=== PATIENT | female | born 1945 | race Caucasian/White ===

== ENCOUNTER 2016-10-05 05:08 | Observation (INO) ==
[2016-10-05 05:43] LABS: Basophils # 0.1 K/mcL (0.0-0.2); Basophils % 0.5 %; Eosinophils # 0.5 K/mcL (0.0-0.6); Eosinophils % 4.4 %; Hematocrit 38.1 % (35.3-44.9); Hemoglobin 12.4 g/dL (11.5-15.4); Immature Granulocytes % 0.5 % (0-4); Lymphocytes # 0.9 K/mcL (0.6-4.6); Lymphocytes % 8.5 %; Mean Corpuscular HGB Conc 32.5 g/dL (31.6-35.5); Mean Corpuscular Hemoglobin 28.8 pg (28.0-33.3); Mean Corpuscular Volume 88.6 fL (83.0-100.0); Mean Platelet Volume 9.9 fL (9.4-12.4); Monocytes # 0.9 K/mcL (0.0-1.3); Neutrophils # 8.6 K/mcL (1.6-8.9); Platelet Count 285 K/mcL (140-400); Red Cell Distribution Width 13.9 % (11.5-14.5); Segmented Neutrophils % 78.1 %
[2016-10-05 05:46] LABS: INR 0.9; Prothrombin Time 10.1 Seconds (9.4-12.1)
[2016-10-05 05:49] LABS: Activated Partial Thrombo Time 30.2 Seconds (26.0-36.0)
--- NOTE | 2016-10-05 05:54 | Emergency Department Note ---
Disposition Clinical Impression: Chest pain Qualifiers: Chest pain type: unspecified Qualified Code(s): R07.9 - Chest pain, unspecified Disposition: Admitted As Inpatient Condition: Undetermined Referrals: Paco Garcia DO [Primary Care Provider] - Forms: ED Satisfaction Letter Time of Disposition: 06:36 Chest Pain HPI - General Chief Complaint: ED Cardiac Arrest/CPR Stated Complaint: chest pain Time Seen by Provider: 10/05/16 05:43 Source: patient Mode of arrival: ambulatory Limitations: no limitations Vital Signs Reviewed: Yes Nursing Notes Reviewed: Yes - History of Present Illness HPI Narrative: 71-year-old female with history of hypertension, hyperlipidemia, asthma arrives [facility] emergency department complaining of retrosternal chest pain and dyspnea that started immediately at 2:30 in the morning. The patient states that she sat up to use the restroom and noticed that she was beginning to have difficulty breathing. The patient was also experiencing is retrosternal chest pain without radiation. The patient denies any previous history of [place], unilateral leg swelling, recent surgeries, recent immobilizations , history of DVT or PE. The patient does not have an extensive history of cardiac disease. The patient states she utilized her albuterol inhaler at home which did not relieve her symptoms. The patient decided at that time to come to the emergency department for evaluation after talking with her significant other as well as her daughter. The patient is tachycardic in the room with a heart rate of 103. Pt complaint: chest pain Onset (ago): hour(s) (2.5) Time: 02:30 Duration: constant Onset: during rest Pain Location: substernal Severity: mild, moderate Severity scale (1-10): 5 Quality: aching Pain Radiation: none Improves with: nothing Worsens with: nothing Associated symptoms: Reports: dyspnea Treatments prior to arrival chest pain: none - Related Data On Oral Contraceptives: No Allergies Allergy/AdvReac Type Severity Reaction Status Date / Time Procaine [From Novocain] AdvReac Swelling Verified 10/05/16 05:09 of Lip/Tongue/Throat All systems ED: reviewed and negative except as stated. Constitutional: Denies: fever, chills, weakness, weight change Eyes: Denies: eye pain, eye discharge, vision change ENT ED: Denies: ear pain, throat pain, dental pain, hearing loss, epistaxis, congestion, dysphagia Cardiovascular: Reports: chest pain. Denies: palpitations, dyspnea on exertion , edema, syncope Respiratory: Reports: cough, dyspnea. Denies: wheezes, hemoptysis, stridor Gastrointestinal: Denies: abdominal pain, nausea, vomiting, diarrhea, constipation, hematemesis, melena, hematochezia Genitourinary: Denies: dysuria, frequency, hematuria, discharge Musculoskeletal: Denies: back pain, neck pain, arthralgia, myalgia Integumentary: Denies: rash, abrasion, lesions Neurological: Denies: headache, weakness, numbness, paresthesias, confusion, abnormal gait, vertigo Chest Pain PMH - Past Medical History Medical history: Reports: asthma, hyperlipidemia, hypertension, renal disease, thyroid disease Surgical history: Reports: non-contributory Psychiatric history: Reports: no psych history - Social History Smoking Status: Never smoker Alcohol use: Reports: none Drug use: Reports: none Physical Exam - General Limitations: no limitations General appearance: alert, in no apparent distress - Head Head exam: atraumatic, normocephalic, normal inspection - Neck Neck exam: Present: normal inspection, full ROM, trachea midline - Chest Chest inspection: Present: normal inspection, symmetric chest wall rise, tenderness (Sternal pain) - Respiratory Respiratory exam: Present: normal lung sounds bilaterally. Absent: respiratory distress, wheezes, accessory muscle use - Cardiovascular Cardiovascular exam: Present: normal rhythm, tachycardia, normal heart sounds - Abdominal Exam Abdominal exam: Present: soft, Non-Tender. Absent: tenderness, distention, guarding, rebound, rigidity - Extremities Exam Extremities exam: Present: normal inspection, full ROM. Absent: tenderness, pedal edema - Neurological Exam Neurological exam: Present: alert, oriented X3 - Skin Skin exam: Present: warm, dry, intact, normal color Course Vital Signs Temperature 99.5 F 10/05/16 05:10 Pulse Rate 113 10/05/16 05:10 Respiratory Rate 16 10/05/16 05:10 Blood Pressure 165/97 10/05/16 05:10 O2 Sat by Pulse Oximetry 94 10/05/16 05:10 Temperature 99.5 F 10/05/16 05:10 Pulse Rate 113 10/05/16 05:10 Respiratory Rate 16 10/05/16 05:10 Blood Pressure 165/97 10/05/16 05:10 O2 Sat by Pulse Oximetry 94 10/05/16 05:10 Oxygen Delivery Oxygen Delivery Room Air Chest Pain - MDM Narrative Medical decision making narrative: Dishes labwork here demonstrated no acute process. The patient's chest pain is retrosternal. The patient has not had a full workup for chest pain in the past. The patient has risk factors for heart scores 3 at this time. Given the patient's no workup here in the emergency Department or further, we will likely admit the patient to the hospital for this. We will get to the hospital service. This was discussed with the patient which she agrees. We ministered aspirin. Patient agrees to plan. Accepted by Dr. Murillo. - Lab Data Lab results reviewed: Yes I reviewed the patient's lab results. Result diagrams: 10/05/16 05:30 10/05/16 05:30 Lab Results 10/05/16 10/05/16 10/05/16 Range/Units 05:30 05:30 05:30 WBC 11.0 (4.3-11.1) K/mcL RBC 4.30 (3.82-4.97) M/mcL Hgb 12.4 (11.5-15.4) g/dL Hct 38.1 (35.3-44.9) % MCV 88.6 (83.0-100.0) fL MCH 28.8 (28.0-33.3) pg MCHC 32.5 (31.6-35.5) g/dL RDW 13.9 (11.5-14.5) % Plt Count 285 (140-400) K/mcL MPV 9.9 (9.4-12.4) fL Immature Gran % 0.5 (0-4) % Seg Neutrophils % 78.1 % Lymphocytes % 8.5 % Monocytes % 8.0 % Eosinophils % 4.4 % Basophils % 0.5 % Neutrophils # 8.6 (1.6-8.9) K/mcL Lymphocytes # 0.9 (0.6-4.6) K/mcL Monocytes # 0.9 (0.0-1.3) K/mcL Eosinophils # 0.5 (0.0-0.6) K/mcL Basophils # 0.1 (0.0-0.2) K/mcL PT 10.1 (9.4-12.1) Seconds INR 0.9 APTT 30.2 (26.0-36.0) Seconds D-Dimer 507 H (0-500) ng/mLFEU Sodium 135 L (136-145) mEq/L Potassium 3.9 (3.5-4.5) mEq/L Chloride 98 (98-109) mEq/L Carbon Dioxide 29 (19-29) mEq/L BUN 8 (7-20) mg/dL Creatinine 0.84 (0.57-1.11) mg/dL Est GFR ( Amer) > 60 (> 60) Est GFR (Non-Af Amer) > 60 (> 60) BUN/Creatinine Ratio 10 (6-26) Glucose 109 H (70-99) mg/dL Calculated Osmolality 279 L (280-300) Calcium 10.2 (8.6-10.8) mg/dL Troponin I (0-0.03) ng/mL 10/05/16 Range/Units 05:30 WBC (4.3-11.1) K/mcL RBC (3.82-4.97) M/mcL Hgb (11.5-15.4) g/dL Hct (35.3-44.9) % MCV (83.0-100.0) fL MCH (28.0-33.3) pg MCHC (31.6-35.5) g/dL RDW (11.5-14.5) % Plt Count (140-400) K/mcL MPV (9.4-12.4) fL Immature Gran % (0-4) % Seg Neutrophils % % Lymphocytes % % Monocytes % % Eosinophils % % Basophils % % Neutrophils # (1.6-8.9) K/mcL Lymphocytes # (0.6-4.6) K/mcL Monocytes # (0.0-1.3) K/mcL Eosinophils # (0.0-0.6) K/mcL Basophils # (0.0-0.2) K/mcL PT (9.4-12.1) Seconds INR APTT (26.0-36.0) Seconds D-Dimer (0-500) ng/mLFEU Sodium (136-145) mEq/L Potassium (3.5-4.5) mEq/L Chloride (98-109) mEq/L Carbon Dioxide (19-29) mEq/L BUN (7-20) mg/dL Creatinine (0.57-1.11) mg/dL Est GFR ( Amer) (> 60) Est GFR (Non-Af Amer) (> 60) BUN/Creatinine Ratio (6-26) Glucose (70-99) mg/dL Calculated Osmolality (280-300) Calcium (8.6-10.8) mg/dL Troponin I 0.02 (0-0.03) ng/mL - Radiology Data Radiology results reviewed: Yes I reviewed the patient's radiology results. - EKG Data EKG attestation: Yes I reviewed and interpreted this EKG. EKG results narrative: Heart rate 10 3 bpm. DE interval 187 ms. QTC 376 ms. Normal axis. Sinus tachycardia. No ST elevation or ST depression noted. EKG otherwise similar to EKG from 10/20/2012. New Tachycardia. No other acute changes noted. Heart Score - Score History: Slightly Suspicious EKG: Normal Age: Greater than 65 Risk Factors: 1-2 risk factors Troponin: Less than normal limit HEART Score Total: 3 Attestation Statement - Attestation Attestation: I examined this patient and my medical decision-making was reviewed with the RESERVATION AGENT/PA/Advanced Practice Nurse/Resident Physician. I agree with the documented findings, disposition and treatment plan as described except to the extent set forth below. In summary 71-year-old female with chest pain with acute onset 2 AM. Midsternal and nonradiating. [place] mildly elevated d- dimer at 507 heart rate utilizing age-adjusted formula she does not require advanced imaging at this time. This would be a normal d-dimer given her age of [age] years old. Cardiac biomarkers are normal. She was given nitroglycerin without much improvement of her pain. EKG is nondiagnostic at this time. I would admit her for turning of cardiac biomarkers. 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 Aspirin was administerd. She does not a strong history of asthma and request a breathing treatment. I do not appreciate any bronchospasm harbor we will proceed with 1 DuoNeb.
[2016-10-05 05:57] LABS: BUN/Creatinine Ratio 10 (6-26); Blood Urea Nitrogen 8 mg/dL (7-20); Calcium 10.2 mg/dL (8.6-10.8); Carbon Dioxide 29 mEq/L (19-29); Chloride 98 mEq/L (98-109); Glucose 109 mg/dL (70-99); Osmolality,Calculated 279 (280-300); Potassium 3.9 mEq/L (3.5-4.5); Sodium 135 mEq/L (136-145); eGFR For African Americans > 60 (> 60); eGFR For Non-African Americans > 60 (> 60)
[2016-10-05] MEDS ORDERED: Aspirin 325 MG TABLET PO ONE (06:30)
[2016-10-05] MEDS ORDERED: Nitroglycerin 0.4 MG TAB.SUBL SL PRN (06:35)
[2016-10-05] MEDS ORDERED: Nitroglycerin 1 INCH/GM PACKET TP ONE (06:54)
[2016-10-05] MEDS ORDERED: Ipratropium/Albuterol Neb 3 ML IH ONE (06:54)
--- NOTE | 2016-10-05 08:36 | Internal Med History&Physical ---
Date of Encounter: 10/05/16 Time of Encounter: 08:36 Assessment and Plan (1) Chest pain Current visit: Yes Status: Acute Patient's chest pain is atypical, pleuritic and reproducible It is likely secondary to her bronchitis however, given her risk factors, will rule out ACS by trending troponins, Obtain ECHO for WMA and EF estimation Patient is chest pain free at time of exam She has low risk for PE, although she was tachycardic on arrival and D-dimer is elevated Will obtain CTA to r/o PE Pain control as needed Qualifiers: Chest pain type: chest pain on breathing Qualified Code(s): R07.1 - Chest pain on breathing (2) Bronchitis Current visit: Yes Status: Acute Patient with cough productive of phlegm and pleuritic chest pain Start on Azithromycin po (3) Asthma Current visit: Yes Status: Chronic Resume home MDI prn No wheezing on exam, no symptoms and signs of exacerbation Qualifiers: Asthma severity: unspecified severity Asthma complication type: uncomplicated Qualified Code(s): J45.909 - Unspecified asthma, uncomplicated (4) Hypertension Current visit: Yes Status: Chronic Resume home meds Qualifiers: Hypertension type: essential hypertension Qualified Code(s): I10 - Essential (primary) hypertension (5) Hypothyroid Current visit: Yes Status: Chronic Resume home meds Qualifiers: Hypothyroidism type: unspecified Qualified Code(s): E03.9 - Hypothyroidism , unspecified (6) HLD (hyperlipidemia) Current visit: Yes Status: Chronic Resume home meds Qualifiers: Hyperlipidemia type: unspecified Qualified Code(s): E78.5 - Hyperlipidemia , unspecified Internal Medicine - H&P: HPI Chief complaint: Chest pain Admitted From: Home Plans for Post Hospital Care: Home History of present illness: Ms. Ramey is a 71 year old female PMH of HTN, HLD, Asthma presented to [facility] with complains of retrosternal chest pain and dyspnea that started in the early hours of this morning She describes the pain as sharp and associated with when she takes a deep breath , pain is located in the center of her chest, intermittent, moderately severe , ~4-5/10 and non-radiating. She denies association of this pain with exertion, meals or rest. There is no associated nausea, diaphoresis, dizziness, she denies palpitations, ankle swelling, orthopnea or PND. She denies preceding trauma, or heavy lifting She has been coughing for several days and relates the chest pain to when she coughs, her cough is productive of clear sputum, she has no rhinorrhea, she has asthma and allergic rhinitis She denies recent travel, immobilization, or any prior procedures She denies abdominal or genito-urinary symptoms Physical exam and work up in the ER is unremarkable Past Med Surg Social Fam HX - Past Medical History Medical history: asthma, hyperlipidemia, hypertension, renal disease, thyroid disease Psychiatric history: no psych history - Past Surgical History Surgical History: non-contributory - Social History Smoking Status: Never smoker Smokeless Tobacco Status: No Alcohol use: none Drug use: none Internal Medicine - H&P: Meds Albuterol Sulfate [Proair Hfa] 2 puff IH Q4H PRN 10/05/16 [History] Ascorbate Calcium [Vitamin C] 500 mg PO BID 10/05/16 [History] Aspirin 81 mg PO DAILY 10/05/16 [History] Atorvastatin [Lipitor] 40 mg PO HS 10/05/16 [History] Biotin 5 mg PO DAILY 10/05/16 [History] Calcium Carbonate/Vitamin D3 [Caltrate 600 + D Soft Chew Tab] 1 tab PO BID 10/05 [History] Cranberry Fruit Extract/Vit C [Azo Cranberry Softgel] 1 cap PO BID 10/05/16 [ History] Cyclosporine [Restasis] 1 drop OP BID 10/05/16 [History] Dapsone 100 mg PO Q48H 10/05/16 [History] Fluticasone Propionate Nasal [Flonase] 1 spray NS DAILY 10/05/16 [History] Fluticasone/Salmeterol [Advair 250-50 Diskus] 1 puff IH BID 10/05/16 [History] Ginkgo Biloba 40 mg PO DAILY 10/05/16 [History] Glucosamine/D3/[place]wellia Pat [Osteo Bi-Flex Tablet] 1 tab PO BID 10/05/16 [ History] Hydroxychloroquine [Plaquenuil] 200 mg PO BID 10/05/16 [History] Ipratropium [place] 2 spray NS BID 10/05/16 [History] L. Acidophilus/Pectin, [place] [Acidophilus Probiotic Capsule] 1 cap PO DAILY 06/19 [History] Levothyroxine [Synthroid] 25 mcg PO 0630 10/05/16 [History] Lisinopril/Hydrochlorothiazide [Zestoretic 20-12.5 mg Tablet] 1 tab PO DAILY 06/19 [History] Multivit-Min/FA/Lycopen/Lutein [Centrum Silver Tablet] 1 tab PO DAILY 10/05/16 [ History] Potassium Gluconate [Potassium] 99 mg PO BID 10/05/16 [History] Ranitidine HCl [Acid Muffler Tender] 150 mg PO BID PRN 10/05/16 [History] Zinc Acetate [Galzin] 50 mg PO DAILY 10/05/16 [History] Allergies Procaine [From Novocain] Adverse Reaction (Verified 10/05/16 05:09) Swelling of Lip/Tongue/Throat All Systems PM: A 10-system review of systems was performed and is negative for pertinent findings except as documented above in the HPI. - Constitutional Constitutional: no chills, no fever(s), no night sweats - EENT Eyes: no change in vision, no discharge, no pain, no photophobia Ears: no ear discharge, no ear pain, no tinnitus Nose, mouth and throat: no dysphagia, no nasal discharge, no neck pain, no sore throat - Cardiovascular Cardiovascular ROS IM: as per HPI - Respiratory Respiratory: as per HPI - Gastrointestinal Gastrointestinal: no abdominal pain, no diarrhea, no hematemesis, no hematochezia, no melena, no nausea, no vomiting - Genitourinary Genitourinary: no change in urinary stream, no dysuria, no flank pain, no hematuria - Musculoskeletal Musculoskeletal ROS IM: no numbness, no tingling - Integumentary Integumentary IM: no rash, no unusual bruising - Hematologic/Lymphatic Hematologic/Lymphatic: no easy bruising - Constitutional Vitals: Temp Pulse Resp BP Pulse Ox 98.3 F 99 16 104/68 93 10/05/16 07:47 10/05/16 07:47 10/05/16 07:47 10/05/16 07:47 10/05/16 07:47 General appearance: Present: A&O X 3, pleasant, no acute distress - Head Head exam: Present: atraumatic, normocephalic - Eye Eye exam: Present: PERRL, conjuntiva pink, sclera anicteric Pupils: Present: PERRL - Neck Neck exam general surgery: Present: supple, trachea midline. Absent: lymphadenopathy - Respiratory Respiratory exam: Present: CTAB. Absent: accessory muscle use, rales, rhonchi, wheezes Additional comments: R chest wall tenderness - Cardiovascular Cardiovascular exam: Present: RRR, +S1, +S2. Absent: diastolic murmur, gallop, rubs, systolic murmur - GI/Abdominal GI/Abdominal exam: Present: normal bowel sounds, soft, no peritoneal signs. Absent: distended, tenderness - Extremities Exam Extremities exam: Present: warm, radial pulses palpable and symetrical. Absent : calf tenderness, cyanotic, pedal edema - Neurological Exam Neurological exam: Present: alert, CN II-XII intact, oriented X3, no focal deficits. Absent: pronater drift, facial droop, speech deficit - Skin Skin exam: Present: dry, intact Internal Med - H&P Results - Labs CBC & Chem 7: 10/05/16 05:30 10/05/16 05:30
[2016-10-05] MEDS ORDERED: Ondansetron 4 MG/2 ML VIAL IVP PRN (08:56)
[2016-10-05] MEDS ORDERED: *HR* Morphine 2 MG/ML SYRINGE IVP PRN (08:56)
[2016-10-05] MEDS ORDERED: Acetaminophen 325 MG TABLET PO PRN (08:56)
[2016-10-05] MEDS ORDERED: Naloxone 0.4 MG/ML INJ IVP PRN (08:56)
[2016-10-05] MEDS ORDERED: Famotidine 20 MG TABLET PO PRN (08:57)
[2016-10-05] MEDS ORDERED: NON-FORMULARY MEDICATION 1 EACH EACH PO SCH (09:00)
[2016-10-05] MEDS ORDERED: Budesonide/Formoterol 80/4.5 MDI IH SCH ×3 (09:00→13:00)
[2016-10-05] MEDS ORDERED: Ipratropium 1 PUFF INHALER IH SCH ×2 (09:00→10:30)
[2016-10-05] MEDS: Lactobacillus 1 EACH CAP.SPRINK PO SCH (10:11)
[2016-10-05] MEDS: Aspirin 81 MG TAB.CHEW PO SCH (10:11)
[2016-10-05] MEDS: Lisinopril-HCTZ 20-12.5mg TABLET PO SCH (10:11)
[2016-10-05] MEDS: Azithromycin 250 MG TABLET PO SCH (10:12)
[2016-10-05] MEDS: Levothyroxine 25 MCG TABLET PO SCH (10:12)
[2016-10-05] MEDS: Multivit/Ca/Min/Fe/FA 1 TAB TABLET PO SCH (10:12)
[2016-10-05] MEDS: Ascorbic Acid 500 MG TABLET PO SCH ×2 (10:12→20:53)
[2016-10-05] MEDS: Fluticasone Propionate Nasal 50 MCG/SPRAY BOTTLE NS SCH (10:13)
[2016-10-05] MEDS: (Cyclosporine [Restasis] 1 DROP) OP SCH ×2 (10:14→20:53)
[2016-10-05] MEDS: CRANBERRY FRUIT EXTRACT PO SCH ×2 (10:14→20:54)
[2016-10-05] MEDS: (Biotin [Biotin] 5 MG) PO SCH (10:14)
[2016-10-05] MEDS: VIT C PO SCH ×2 (10:14→20:54)
[2016-10-05] MEDS: *HR* HYDROcodone/Acet 5/325 mg TABLET PO PRN ×2 (17:42→22:11)
[2016-10-05] MEDS: CALCIUM CARBONATE PO SCH (20:54)
[2016-10-05] MEDS: VITAMIN D3 PO SCH (20:54)
[2016-10-05] MEDS: Ipratropium 1 PUFF INHALER IH SCH (21:56)
[2016-10-05] MEDS: Budesonide/Formoterol 80/4.5 MDI IH SCH (21:57)
[2016-10-06] MEDS: *HR* HYDROcodone/Acet 5/325 mg TABLET PO PRN (05:54)
[2016-10-06] MEDS ORDERED: *HR* Enoxaparin 40 MG/0.4 ML SYRINGE SQ SCH (06:00)
[2016-10-06] MEDS: Ipratropium 1 PUFF INHALER IH SCH (08:27)
[2016-10-06] MEDS: Budesonide/Formoterol 80/4.5 MDI IH SCH (08:27)
[2016-10-06] MEDS: Levothyroxine 25 MCG TABLET PO SCH (08:38)
[2016-10-06] MEDS: Aspirin 81 MG TAB.CHEW PO SCH (08:39)
[2016-10-06] MEDS: Lisinopril-HCTZ 20-12.5mg TABLET PO SCH (08:40)
[2016-10-06] MEDS: Lactobacillus 1 EACH CAP.SPRINK PO SCH (08:40)
[2016-10-06] MEDS: Ascorbic Acid 500 MG TABLET PO SCH (08:40)
[2016-10-06] MEDS: Azithromycin 250 MG TABLET PO SCH (08:40)
[2016-10-06] MEDS: Multivit/Ca/Min/Fe/FA 1 TAB TABLET PO SCH (08:40)
[2016-10-06] MEDS: VIT C PO SCH (08:49)
[2016-10-06] MEDS: VITAMIN D3 PO SCH (08:49)
[2016-10-06] MEDS: (Biotin [Biotin] 5 MG) PO SCH (08:49)
[2016-10-06] MEDS: (Cyclosporine [Restasis] 1 DROP) OP SCH (08:49)
[2016-10-06] MEDS: CRANBERRY FRUIT EXTRACT PO SCH (08:49)
[2016-10-06] MEDS: CALCIUM CARBONATE PO SCH (08:49)
[2016-10-06] MEDS: Fluticasone Propionate Nasal 50 MCG/SPRAY BOTTLE NS SCH (08:52)
[2016-10-06 12:15] VITALS: BP 97/67
--- NOTE | 2016-10-06 14:05 | Discharge Summary ---
Date of Encounter: 10/06/16 Time of Encounter: 13:00 - Discharge Diagnosis (1) Chest pain Priority: Primary Status: Acute Comments: Patient reports substernal chest pain, shortness of breath that started at 2:30 in the morning on October 05 when she awakened to go to the bathroom. Pain did not awaken her from sleep. She reports it as a tightness/pressure with radiation up her chest and into bilateral jaws. This pain is worse with movement, deep inspiration, palpation, and is worse with eating. Patient states that she has been trying to eat smaller meals since she has been here since the pain also appears to be worse with eating. Patient has S1-S2, regular rate and rhythm, +2 peripheral pulses both upper and lower extremities. Pain is reproducible with palpation to the midsternal area. There is no tenderness in the epigastric area. She denies nausea, vomiting, shortness of breath at this time. She did have shortness of breath at time of incident. She also reports a dry hacking nonproductive cough, postnasal drip, and clear rhinorrhea for the last 4-5 days. Echocardiogram showed normal LV chamber size, wall thickness and function with an LVEF of 65%. There is indeterminate diastolic function. Chest x-ray was negative for acute process. There is concern for PE, d-dimer was elevated in the emergency department. CTA of the chest showed no acute pulmonary embolism, and bibasilar linear atelectasis. This is most likely pleuritic chest pain from exacerbation of asthma/ bronchitis. Patient does have dry hacking cough. Patient will continue Zithromax, she has requested steroids, states this has helped this condition in the past. She will also be sent home with guaifenesin. She denies need for refills on any of her inhalers. Primary care physician is out on maternity leave, I encouraged her to follow up with primary care. She says that her client project coordinator is the one who treats her asthma. Qualifiers: Chest pain type: chest pain on breathing Qualified Code(s): R07.1 - Chest pain on breathing (2) Bronchitis Priority: Secondary Status: Acute Comments: Patient will continue course of Zithromax at home. 250 mg by mouth 4 days. Plan as above. (3) Asthma Priority: Secondary Status: Chronic Comments: Lungs are clear and diminished posteriorly. There is no wheezing, rhonchi, Rales, respiratory distress. Patient speaks easily in full sentences. She maintained sats greater than 92% on room air. Plan as above. Qualifiers: Asthma severity: unspecified severity Asthma complication type: uncomplicated Qualified Code(s): J45.909 - Unspecified asthma, uncomplicated (4) Hypertension Priority: Secondary Status: Chronic Comments: Chronic. Continue home medications. Qualifiers: Hypertension type: essential hypertension Qualified Code(s): I10 - Essential (primary) hypertension (5) Hypothyroid Priority: Secondary Status: Chronic Comments: Chronic. Continue home medications. Qualifiers: Hypothyroidism type: unspecified Qualified Code(s): E03.9 - Hypothyroidism , unspecified (6) HLD (hyperlipidemia) Priority: Secondary Status: Chronic Comments: Chronic. Continue home medication. Qualifiers: Hyperlipidemia type: unspecified Qualified Code(s): E78.5 - Hyperlipidemia , unspecified - Discharge Medications Prescriptions: Azithromycin [Zithromax] 500 mg PO DAILY #4 tablet Guaifenesin [Guaifenesin ER] 600 mg PO BID PRN #30 tab.er.12h PRN Reason: Cough PredniSONE [Deltasone] 20 mg PO DAILY #4 tablet Home Medications: Albuterol Sulfate [Proair Hfa] 2 puff IH Q4H PRN 10/05/16 [History] Ascorbate Calcium [Vitamin C] 500 mg PO BID 10/05/16 [History] Aspirin 81 mg PO DAILY 10/05/16 [History] Atorvastatin [Lipitor] 40 mg PO HS 10/05/16 [History] Biotin 5 mg PO DAILY 10/05/16 [History] Calcium Carbonate/Vitamin D3 [Caltrate 600 + D Soft Chew Tab] 1 tab PO BID 10/05 [History] Cranberry Fruit Extract/Vit C [Azo Cranberry Softgel] 1 cap PO BID 10/05/16 [ History] Cyclosporine [Restasis] 1 drop OP BID 10/05/16 [History] Dapsone 100 mg PO Q48H 10/05/16 [History] Fluticasone Propionate Nasal [Flonase] 1 spray NS DAILY 10/05/16 [History] Fluticasone/Salmeterol [Advair 250-50 Diskus] 1 puff IH BID 10/05/16 [History] Ginkgo Biloba 40 mg PO DAILY 10/05/16 [History] Glucosamine/D3/Boswellia Pat [Osteo Bi-Flex Tablet] 1 tab PO BID 10/05/16 [ History] Hydroxychloroquine [Plaquenuil] 200 mg PO BID 10/05/16 [History] Ipratropium [place] 2 spray NS BID 10/05/16 [History] L. Acidophilus/Pectin, [place] [Acidophilus Probiotic Capsule] 1 cap PO DAILY 06/19 [History] Levothyroxine [Synthroid] 25 mcg PO 0630 10/05/16 [History] Lisinopril/Hydrochlorothiazide [Zestoretic 20-12.5 mg Tablet] 1 tab PO DAILY 06/19 [History] Multivit-Min/FA/Lycopen/Lutein [Centrum Silver Tablet] 1 tab PO DAILY 10/05/16 [ History] Potassium Gluconate [Potassium] 99 mg PO BID 10/05/16 [History] Ranitidine HCl [Acid Electric Lineman] 150 mg PO BID PRN 10/05/16 [History] Zinc Acetate [Galzin] 50 mg PO DAILY 10/05/16 [History] Azithromycin [Zithromax] 500 mg PO DAILY #4 tablet 10/06/16 [Rx] Guaifenesin [Guaifenesin ER] 600 mg PO BID PRN #30 tab.er.12h 10/06/16 [Rx] PredniSONE [Deltasone] 20 mg PO DAILY #4 tablet 10/06/16 [Rx] Allergies/Adverse Reactions: Allergies Procaine [From Novocain] Adverse Reaction (Verified 10/05/16 05:09) Swelling of Lip/Tongue/Throat Procedures/tests Complete & Pending: Procedures Performed prior 72 hours Category Date Time Status CTA chest [CT angio chest] [CT] Stat Cat Scan 10/05/16 09:25 Completed EV echocardiogram Routine Y 10/05/16 08:57 Completed Date of admission: 10/05/16 06:59 Primary care physician: Paco Garcia DO Discharging clinician: Jacinta Lee Anticipated date of discharge: 10/06/16 - Patient Status Disposition: Home, Self-Care Condition: Good Functional capacity at discharge: independent ambulation Overall status at discharge: patient is progressing back to baseline - Discharge Instructions Follow Up With: Yandila,Reggina W, DO [Primary Care Provider] - Additional Instructions: Please follow-up with your primary care provider's office in the next 7-10 days for a follow-up appointment. Please take your new medications as directed. Resume other home medications. Rest, drink plenty of fluids, stay inside during the heat of the day. Return to the emergency department as needed for any new or concerning problems or symptoms or if your current symptoms return. - Diet and Activity Activity: increase activity as tolerated Diet: advance to your usual diet Hospital course: Ms. Ramey is a 71 year old female with prior medical history of hypertension, hyperlipidemia, asthma, who presented to the emergency room with complaints of midsternal chest pain with radiation up her chest and into bilateral jaws with shortness of breath that started at 2:30 AM on Wednesday morning when she awakened to go to the bathroom. This is one day ago. She describes as a pressure/ tightness that increases with movement, deep inspiration, palpation, and worse after eating. She reports a dry cough that is nonproductive, postnasal drip, and clear rhinorrhea for the last week or so. She states that with her history of asthma, she normally has postnasal drip and rhinorrhea about this time a year , again in the fall. She says that she normally is given a course of steroids and is better. This time the chest pain seemed like she needed to be seen in the emergency department. She states that she normally has rhinorrhea and postnasal drip and takes Claritin and Flonase daily. She also sees an client project coordinator who also treats her asthma. Physical exam is unremarkable. Lung sounds are clear and diminished posteriorly. There is no wheezing, rales, rhonchi, respiratory distress, or stridor. She speaks easily and is not dependent on supplemental oxygen. She has no peripheral edema. S1 and S2 are heard, she has regular rate and rhythm. Peripheral pulses are palpated +1 bilaterally upper and lower extremities. Patient had echocardiogram yesterday showed LVEF 65%. There is normal LV chamber size, wall thickness and function. Indeterminate diastolic dysfunction , normal RV structure and function, no evidence of pulmonary hypertension, and no significant valvular dysfunction. D-dimer was elevated in the emergency department, CTA chest showed no acute pulmonary embolism, bibasilar linear atelectasis. Her chest x-ray in the emergency department was negative for any acute processes. Mrs. Ramey has been treated with Zithromax 500 mg, she will continue treatment at home with 250 mg daily for the next 4 days. She also states that she has had relief from the symptoms in the past with steroids. She will be given a very small steroid taper, as well as guaifenesin for her cough. She has been afebrile and without leukocytosis. Her labs are within normal limits, vital signs are within normal limits. Patient is ready for an stable for discharge. - Time Spent with Patient Total time spent providing and/or coordinating discharge services: Less than 30 minutes - Constitutional Vitals: Temp Pulse Resp BP Pulse Ox 97.5 F L 97 14 97/67 98 10/06/16 12:12 10/06/16 12:12 10/06/16 12:12 10/06/16 12:12 10/06/16 13:48 General appearance: Present: cooperative, A&O X 3, pleasant, no acute distress, answers questions appropriately - Head Head exam: Present: normal inspection - Eye Eye exam: Present: normal appearance, conjuntiva pink - ENT ENT exam: Present: mucous membranes moist, normal exam, normal external ear exam , normal oropharynx - Neck Neck exam general surgery: Present: normal inspection. Absent: lymphadenopathy , tenderness, thyromegaly - Respiratory Respiratory exam: Present: chest wall tenderness, decreased breath sounds, CTAB. Absent: rales, respiratory distress, rhonchi, stridor, wheezes, tachypnea - Cardiovascular Cardiovascular exam: Present: RRR, +S1, +S2. Absent: bradycardia, diastolic murmur, systolic murmur, tachycardia - Expanded Cardiovascular Exam Peripheral pulses: 1+: Dorsalis Pedis (L) PM, Dorsalis Pedis (R) PM - GI/Abdominal GI/Abdominal exam: Present: normal bowel sounds, soft. Absent: hepatomegaly, tenderness - Extremities Exam Extremities exam: Present: normal capillary refill, warm, radial pulses palpable and symetrical. Absent: pedal edema, tenderness - Neurological Exam Neurological exam: Present: alert, oriented X3, no focal deficits. Absent: altered, facial droop, speech deficit - Skin Skin exam: Present: dry, normal color, warm
--- NOTE | 2016-10-07 13:06 | Electrocardiograph Report ---
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
== END 2016-10-06 14:34 | disposition home or self-care (01) ==
LOC: EMEROO 05:08 → 3BNU 05:08
PROVIDERS: ADMIT Internal Medicine; ATTEND Nurse Practitioner Family

== ENCOUNTER 2016-10-25 17:17 | Inpatient (IN) ==
[2016-10-25] MEDS ORDERED: Aspirin 81 MG TAB.CHEW PO ONE (18:04)
[2016-10-25] MEDS ORDERED: 0.9 % Sodium Chloride 500 ML IVC ONE (18:04)
[2016-10-25] MEDS ORDERED: *HR* Morphine 2 MG/ML SYRINGE IVP ONE (18:05)
[2016-10-25] MEDS ORDERED: Ondansetron 4 MG/2 ML VIAL IVP ONE (18:05)
[2016-10-25 18:59] LABS: Basophils % 0.3 %; Eosinophils # 0.3 K/mcL (0.0-0.6); Eosinophils % 2.5 %; Hematocrit 28.6 % (35.3-44.9); Hemoglobin 9.1 g/dL (11.5-15.4); Immature Granulocytes % 0.5 % (0-4); Lymphocytes # 1.3 K/mcL (0.6-4.6); Lymphocytes % 12.5 %; Mean Corpuscular HGB Conc 31.8 g/dL (31.6-35.5); Mean Corpuscular Hemoglobin 28.9 pg (28.0-33.3); Mean Corpuscular Volume 90.8 fL (83.0-100.0); Mean Platelet Volume 10.1 fL (9.4-12.4); Monocytes # 1.3 K/mcL (0.0-1.3); Monocytes % 12.7 %; Neutrophils # 7.4 K/mcL (1.6-8.9); Platelet Count 350 K/mcL (140-400); Red Blood Count 3.15 M/mcL (3.82-4.97); Red Cell Distribution Width 15.4 % (11.5-14.5); Segmented Neutrophils % 71.5 %
[2016-10-25 19:04] LABS: INR 1.2; Prothrombin Time 12.8 Seconds (9.4-12.1)
[2016-10-25 19:06] LABS: Activated Partial Thrombo Time 28.9 Seconds (26.0-36.0)
[2016-10-25 19:13] LABS: BUN/Creatinine Ratio 12 (6-26); Blood Urea Nitrogen 9 mg/dL (7-20); Carbon Dioxide 26 mEq/L (19-29); Chloride 96 mEq/L (98-109); Glucose 93 mg/dL (70-99); Lipase 25 Units/L (8-78); Osmolality,Calculated 266 (280-300); Potassium 3.9 mEq/L (3.5-4.5); Sodium 129 mEq/L (136-145); eGFR For African Americans > 60 (> 60); eGFR For Non-African Americans > 60 (> 60)
--- NOTE | 2016-10-25 19:52 | Emergency Department Note ---
Disposition Clinical Impression: Tachycardia, Hypoxia, Pericardial effusion without cardiac tamponade Chest pain Qualifiers: Chest pain type: chest pain on breathing Qualified Code(s): R07.1 - Chest pain on breathing Diverticulitis Qualifiers: Diverticulitis site: large intestine Diverticulitis bleeding: without bleeding Diverticulitis complication: without perforation or abscess Qualified Code(s): K57.32 - Diverticulitis of large intestine without perforation or abscess without bleeding Disposition: Admitted As Inpatient Condition: Good Referrals: NO,PCP [Non-Partnered Physician] - Forms: ED Satisfaction Letter Time of Disposition: 21:02 General Adult HPI - General Chief complaint: ED Chest Pain Stated complaint: C/P Time Seen by Provider: 10/25/16 17:46 Source: patient Mode of arrival: ambulatory Limitations: no limitations Nursing Notes Reviewed: Yes Vital Signs Reviewed: Yes - History of Present Illness HPI Narrative: Patient seen and examined with some arrival. She has had. 71-year-old female presents today with chest discomfort for over a month. She also complains of symptoms when she leans forward feeling of pain in her chest and radiates up into her neck. Denies any fevers or chills nausea vomiting or diarrhea. Denies headache or vision changes. Denies chest pain shortness of breath. Main complaint is chest wall discomfort when she leans forward. She was just in the hospital for similar she was discharged home without any significant change in her symptoms or resolution. Patient family was concerned and brought her in tonight for evaluation. Onset (ago): week(s) Location: chest Radiation: non-radiation Pain Severity: moderate Pain Scale: 7 Quality: aching Consistency: constant Improves with: nothing Worsens with: movement Associated symptoms: Reports: loss of appetite, malaise, weakness. Denies: chest pain, cough, diaphoresis, fever/chills, headaches, nausea/vomiting, rash, seizure, shortness of breath, syncope Treatments Prior to Arrival: none - Related Data Home Medications Medication Instructions Recorded Confirmed Albuterol Sulfate [Proair Hfa] 2 puff IH Q4H PRN 10/05/16 10/05/16 Ascorbate Calcium [Vitamin C] 500 mg PO BID 10/05/16 10/05/16 Aspirin 81 mg PO DAILY 10/05/16 10/05/16 Atorvastatin [Lipitor] 40 mg PO HS 10/05/16 10/05/16 Biotin 5 mg PO DAILY 10/05/16 10/05/16 Calcium Carbonate/Vitamin D3 1 tab PO BID 10/05/16 10/05/16 [Caltrate 600 + D Soft Chew Tab] Cranberry Fruit Extract/Vit C [Azo 1 cap PO BID 10/05/16 10/05/16 Cranberry Softgel] Cyclosporine [Restasis] 1 drop OP BID 10/05/16 10/05/16 Dapsone 100 mg PO Q48H 10/05/16 10/05/16 Fluticasone Propionate Nasal 1 spray NS DAILY 10/05/16 10/05/16 [Flonase] Fluticasone/Salmeterol [Advair 1 puff IH BID 10/05/16 10/05/16 250-50 Diskus] Ginkgo Biloba 40 mg PO DAILY 10/05/16 10/05/16 Glucosamine/D3/Boswellia Pat 1 tab PO BID 10/05/16 10/05/16 [Osteo Bi-Flex Tablet] Hydroxychloroquine [Plaquenuil] 200 mg PO BID 10/05/16 10/05/16 Ipratropium [place] 2 spray NS BID 10/05/16 10/05/16 L. Acidophilus/Pectin, [place] 1 cap PO DAILY 10/05/16 10/05/16 [Acidophilus Probiotic Capsule] Levothyroxine [Synthroid] 25 mcg PO 0630 10/05/16 10/05/16 Lisinopril/Hydrochlorothiazide 1 tab PO DAILY 10/05/16 10/05/16 [Zestoretic 20-12.5 mg Tablet] Multivit-Min/FA/Lycopen/Lutein 1 tab PO DAILY 10/05/16 10/05/16 [Centrum Silver Tablet] Potassium Gluconate [Potassium] 99 mg PO BID 10/05/16 10/05/16 Ranitidine HCl [Acid Plastic Frame Inserter] 150 mg PO BID PRN 10/05/16 10/05/16 Zinc Acetate [Galzin] 50 mg PO DAILY 10/05/16 10/05/16 Previous Rx's Medication Instructions Recorded Azithromycin [Zithromax] 500 mg PO DAILY #4 tablet 10/06/16 Guaifenesin [Guaifenesin ER] 600 mg PO BID PRN #30 tab.er.12h 10/06/16 PredniSONE [Deltasone] 20 mg PO DAILY #4 tablet 10/06/16 Allergies Allergy/AdvReac Type Severity Reaction Status Date / Time Procaine [From Novocain] AdvReac Swelling Verified 10/05/16 05:09 of Lip/Tongue/Throat All systems ED: reviewed and negative except as stated. Review of Systems: As Per HPI Constitutional: Reports: weakness. Denies: fever, chills Eyes: Denies: eye pain Cardiovascular: Reports: chest pain. Denies: palpitations, dyspnea on exertion , orthopnea Respiratory: Denies: cough, dyspnea, wheezes, hemoptysis Gastrointestinal: Reports: abdominal pain. Denies: nausea, vomiting, diarrhea Genitourinary: Denies: urgency, dysuria Musculoskeletal: Denies: back pain, neck pain Neurological: Denies: headache, weakness Psychiatric: Denies: anxiety, depression Endocrine: Reports: fatigue Past Medical History - Past Medical History Attestation: Yes The following information was validated with the patient. Source: patient Medical history: Reports: arthritis, asthma, hyperlipidemia, hypertension, renal disease, thyroid disease Surgical history: Reports: non-contributory Psychiatric history: Reports: no psych history - Social History Smoking Status: Never smoker Smokeless Tobacco Status: No Alcohol use: Reports: none Drug use: Reports: none Physical Exam - General Limitations: no limitations General appearance: alert - Head Head exam: atraumatic, normocephalic, normal inspection - Neck Neck exam: Present: normal inspection, full ROM, trachea midline - Chest Chest inspection: Present: normal inspection, symmetric chest wall rise - Respiratory Respiratory exam: Present: normal lung sounds bilaterally - Cardiovascular Cardiovascular exam: Present: regular rate, normal rhythm, tachycardia, normal heart sounds - Extremities Exam Extremities exam: Present: normal inspection, full ROM, normal capillary refill. Absent: tenderness - Back Exam Back exam: Present: normal inspection, full ROM. Absent: tenderness - Neurological Exam Neurological exam: Present: alert, oriented X3, CN II-XII intact, normal gait - Skin Skin exam: Present: warm, dry, intact, normal color Course Course Narrative: pt seen and examined at the time of arrival. see hpi. 71 yo female present to the emergency room with complaint of anterior chest wall discomfort. She notices the symptoms when she leans forward and then gets a pressure sensation into her neck. She was seen and evaluated 1 month ago this facility for chest pain like symptoms similar to what she has now. She had an echo completed that time as well as a cardiac evaluation was all negative. She denies any changes in the symptoms over the last month it is persistently felt bad. She denies any recent fevers or chills nausea vomiting or diarrhea. Denies any chest pain shortness of breath headache or vision changes except the symptoms that she described in initial history of present illness. Vital signs reviewed and are stable except for the patient being tachycardic. She has intermittent hypoxia also noted at this time. She describes her chest wall discomfort is positional. She leans forward and has pain in the anterior chest wall that radiates up into the neck. She has no bruits noted on exam or stridor. She has no murmurs or friction rub noted on my evaluation. Lungs are clear heart is regular. Tachycardia noted. Abdomen is soft but she has had left lower quadrant tenderness and discomfort. Denies vaginal discharge or burning. Denies any urinary symptoms at this time. Has no visible signs of rash or lesion on the back she has no CVA tenderness and no midline tenderness to the cervical thoracic or lumbar spine. Patient is concerning for cardiac related issues including cardiac effusion, infection, underlying etiology at this point. She also is concerning for abdominal pathology secondary to tenderness. Chest x-ray CT the abdomen urinalysis labs including EKG and troponin ordered at this point. Pain medication only medication fluids to be given. Disposition pending workup and treatment course at this time. - Reevaluation(s) Reevaluation #1: Labs reviewed. Patient's hemoglobin has dropped partially 4 g over the last month. Hemoccult stool testing sent at this time. She is on iron secondary to long-standing anemia history. Patient also has diverticulitis based on CT imaging of the abdomen. Fluids and the nausea medication as well as first doses of antibiotics to be given at this time. CT imaging also discussed the possible pericardial effusion. This was an initial concern based on the patient 's symptoms being positional with radiation pressure up into the neck. CT imaging of the chest to be addressed at this time since the patient has had the chest discomfort symptoms for over a month now and has progressed into what appears to be fluid around the heart. Disposition pending workup and treatment course and CT angiography of the chest at this time. This will effectively address for pulmonary emboli, pericardial effusion, signs of pulmonary infiltrate or infection at this point. Concern is noted for possible intrapericardial leak secondary to chest wall discomfort as well as hemoglobin drop and possible pulmonary emboli secondary to intermittent hypoxia and tachycardia Time: 20:03 Reevaluation #2: CT and urinalysis is negative for acute pathology. Patient does have a 1 cm pericardial effusion and no signs of topic not or ventricular collapse. Respiratory distress is not noted here in the emergency room. Intermittent hypoxia noted as well as tachycardia that has been persistent after 500 mL bolus. Antibiotics and fluid boluses to be given at this time as needed. Maintenance fluids are ordered. Discussed at the bedside the findings on examination including uncomplicated diverticulitis as well as the new arrival of the pericardial effusion. I discussed with the family and the patient my recommendation for admission secondary to unknown etiology of her symptoms. Hemoccult testing of her stool was negative for acute blood loss at this time. I do have concern that the symptoms are cardio effusion could be secondary to scant blood loss around the heart at this time. Does not account for her 3 g drop in hemoglobin at this time. Disposition will be admission to hospital for definitive management. Hospice patient this time. No other acute issues noted at this point a treatment course. Hospitalist Dr. Haley and I reviewed the patient's presentation symptoms medical intervention as well as imaging studies. He is happy except the patient the hospital. Asked if I would contact the stationary boiler fireman just to let them know about the pericardial effusion. No other acute issues noted at this point. Patient has no acute signs of pericardial topic not or left ventricular decompensation at this point. Consultation placed out to the stationary boiler fireman Dr. Tatum. We will advise of the patient's in the hospital for outpatient treatment course. Otherwise no other acute issues. Disposition will be admission to hospital this time and other recommendations from the hospitalist Time: 20:59 Reevaluation #3: Constipation with the stationary boiler fireman. Review the presentation symptoms and issues. No other recommendations and then this time except for evaluation the morning. Hemodynamics been stable here pain is controlled. Antibiotics and fluids to be given at this point. Admission process to be completed at this time. Only as well as the patient was informed of the plan now controlled this at this time Time: 21:08 Vital Signs Temperature 98.4 F 10/25/16 17:18 Pulse Rate 116 10/25/16 17:18 Respiratory Rate 18 10/25/16 17:18 Blood Pressure 135/81 10/25/16 17:18 O2 Sat by Pulse Oximetry 96 10/25/16 17:18 Temperature 98.4 F 10/25/16 17:18 Pulse Rate 99 10/25/16 18:55 Respiratory Rate 16 10/25/16 18:55 Blood Pressure 117/73 10/25/16 18:55 O2 Sat by Pulse Oximetry 94 10/25/16 18:55 Oxygen Delivery Oxygen Delivery Room Air Medical Decision Making - MDM Narrative Medical decision making narrative: Abdominal pain, diverticulitis, anemia, pericardial effusion, tachycardia - Medical Records Medical records reviewed: Yes I reviewed the patient's medical records. - Lab Data Lab results reviewed: Yes I reviewed the patient's lab results. Result diagrams: 10/25/16 18:44 10/25/16 18:44 Lab Results 10/25/16 10/25/16 10/25/16 Range/Units 18:44 18:44 18:44 WBC 10.3 (4.3-11.1) K/mcL RBC 3.15 L (3.82-4.97) M/mcL Hgb 9.1 L (11.5-15.4) g/dL Hct 28.6 L (35.3-44.9) % MCV 90.8 (83.0-100.0) fL MCH 28.9 (28.0-33.3) pg MCHC 31.8 (31.6-35.5) g/dL RDW 15.4 H (11.5-14.5) % Plt Count 350 (140-400) K/mcL MPV 10.1 (9.4-12.4) fL Immature Gran % 0.5 (0-4) % Seg Neutrophils % 71.5 % Lymphocytes % 12.5 % Monocytes % 12.7 % Eosinophils % 2.5 % Basophils % 0.3 % Neutrophils # 7.4 (1.6-8.9) K/mcL Lymphocytes # 1.3 (0.6-4.6) K/mcL Monocytes # 1.3 (0.0-1.3) K/mcL Eosinophils # 0.3 (0.0-0.6) K/mcL Basophils # 0.0 (0.0-0.2) K/mcL PT 12.8 H (9.4-12.1) Seconds INR 1.2 APTT 28.9 (26.0-36.0) Seconds Sodium (136-145) mEq/L Potassium (3.5-4.5) mEq/L Chloride (98-109) mEq/L Carbon Dioxide (19-29) mEq/L BUN (7-20) mg/dL Creatinine (0.57-1.11) mg/dL Est GFR ( Amer) (> 60) Est GFR (Non-Af Amer) (> 60) BUN/Creatinine Ratio (6-26) Glucose (70-99) mg/dL Calculated Osmolality (280-300) Calcium (8.6-10.8) mg/dL Troponin I (0-0.03) ng/mL B-Natriuretic Peptide 22 (0-100) pg/mL Lipase (8-78) Units/L Stool Occult Blood (Negative) Blood Type 10/25/16 10/25/16 10/25/16 Range/Units 18:44 18:44 19:16 WBC (4.3-11.1) K/mcL RBC (3.82-4.97) M/mcL Hgb (11.5-15.4) g/dL Hct (35.3-44.9) % MCV (83.0-100.0) fL MCH (28.0-33.3) pg MCHC (31.6-35.5) g/dL RDW (11.5-14.5) % Plt Count (140-400) K/mcL MPV (9.4-12.4) fL Immature Gran % (0-4) % Seg Neutrophils % % Lymphocytes % % Monocytes % % Eosinophils % % Basophils % % Neutrophils # (1.6-8.9) K/mcL Lymphocytes # (0.6-4.6) K/mcL Monocytes # (0.0-1.3) K/mcL Eosinophils # (0.0-0.6) K/mcL Basophils # (0.0-0.2) K/mcL PT (9.4-12.1) Seconds INR APTT (26.0-36.0) Seconds Sodium 129 L (136-145) mEq/L Potassium 3.9 (3.5-4.5) mEq/L Chloride 96 L (98-109) mEq/L Carbon Dioxide 26 (19-29) mEq/L BUN 9 (7-20) mg/dL Creatinine 0.74 (0.57-1.11) mg/dL Est GFR ( Amer) > 60 (> 60) Est GFR (Non-Af Amer) > 60 (> 60) BUN/Creatinine Ratio 12 (6-26) Glucose 93 (70-99) mg/dL Calculated Osmolality 266 L (280-300) Calcium 9.0 (8.6-10.8) mg/dL Troponin I 0.00 (0-0.03) ng/mL B-Natriuretic Peptide (0-100) pg/mL Lipase 25 (8-78) Units/L Stool Occult Blood Negative (Negative) Blood Type 10/25/16 Range/Units 20:15 WBC (4.3-11.1) K/mcL RBC (3.82-4.97) M/mcL Hgb (11.5-15.4) g/dL Hct (35.3-44.9) % MCV (83.0-100.0) fL MCH (28.0-33.3) pg MCHC (31.6-35.5) g/dL RDW (11.5-14.5) % Plt Count (140-400) K/mcL MPV (9.4-12.4) fL Immature Gran % (0-4) % Seg Neutrophils % % Lymphocytes % % Monocytes % % Eosinophils % % Basophils % % Neutrophils # (1.6-8.9) K/mcL Lymphocytes # (0.6-4.6) K/mcL Monocytes # (0.0-1.3) K/mcL Eosinophils # (0.0-0.6) K/mcL Basophils # (0.0-0.2) K/mcL PT (9.4-12.1) Seconds INR APTT (26.0-36.0) Seconds Sodium (136-145) mEq/L Potassium (3.5-4.5) mEq/L Chloride (98-109) mEq/L Carbon Dioxide (19-29) mEq/L BUN (7-20) mg/dL Creatinine (0.57-1.11) mg/dL Est GFR ( Amer) (> 60) Est GFR (Non-Af Amer) (> 60) BUN/Creatinine Ratio (6-26) Glucose (70-99) mg/dL Calculated Osmolality (280-300) Calcium (8.6-10.8) mg/dL Troponin I (0-0.03) ng/mL B-Natriuretic Peptide (0-100) pg/mL Lipase (8-78) Units/L Stool Occult Blood (Negative) Blood Type O POSITIVE - Radiology Data Radiology results reviewed: Yes I reviewed the patient's radiology results. CT of the abdomen is positive for acute diverticulitis of the sigmoid colon no signs of abscess or free air. Pericardial effusion noted on the imaging of the heart. - EKG Data EKG #1 EKG attestation: Yes I reviewed and interpreted this EKG. EKG shows normal: sinus rhythm, axis, intervals, QRS complexes, ST-T waves Rate: tachycardia Rhythm: NSR [place]/QRS: left axis deviation When compared to previous EKG there are: no significant changes Interpretation: no acute changes, unchanged when compared to prior tracing (date ) (10/05/16) Critical Care Time Critical Care Time: Yes Total Critical Care Time: 45 Attestation: Critical care performed: Time is exclusive of separately billable procedures. Time includes: direct patient care, patient reassessment, coordination of patient care, interpretation of data (laboratory data, radiology data, and respiratory data), review of patient's medical records, medical consultation and documentation of patient care. Procedures included in critical care time: Procedures excluded from critical care time:
[2016-10-25] MEDS ORDERED: MetroNIDAZOLE 500 MG/100 ML 500 MG/100 ML BAG IVPB ONE (20:50)
[2016-10-25 21:07] LABS: Bilirubin,Urine Negative (Negative); Blood,Urine Trace (Negative); Clarity,Urine Cloudy (Clear); Color,Urine Yellow (Yellow); Glucose,Urine (UA) Normal (Normal); Ketones,Urine Negative (Negative); Leukocyte Esterase,Urine Large (Negative); Nitrite,Urine Negative (Negative); Protein,Urine Negative (Neg-Trace); Urobilinogen,Urine Normal (Normal)
[2016-10-25 21:09] LABS: Bacteria,Urine Many per hpf (None-Few); Hyaline Casts,Urine None Seen per lpf (None-Few); RBC,Urine 0-3 per hpf (0-3); Squamous Epithelial Cell,Urine Moderate per lpf (None-Few); WBC,Urine 50-100 per hpf (0-3)
[2016-10-25] MEDS ORDERED: *HR* Promethazine 25 MG/ML VIAL IVP PRN (23:02)
[2016-10-25] MEDS ORDERED: Naloxone 0.4 MG/ML INJ IVP PRN (23:02)
[2016-10-25] MEDS ORDERED: Acetaminophen 325 MG TABLET PO PRN (23:02)
--- NOTE | 2016-10-25 23:13 | Internal Med History&Physical ---
Date of Encounter: 10/25/16 Time of Encounter: 22:40 Assessment and Plan (1) Diverticulitis Current visit: Yes Status: Acute Patient with acute mild sigmoid diverticulitis per CT scan findings. Patient does have abdominal tenderness in the left lower quadrant. We will treat with bowel rest, IV fluids, ciprofloxacin and Flagyl. Moderate risk for complications. Qualifiers: Diverticulitis site: large intestine Diverticulitis bleeding: without bleeding Diverticulitis complication: without perforation or abscess Qualified Code(s): K57.32 - Diverticulitis of large intestine without perforation or abscess without bleeding (2) Pericardial effusion without cardiac tamponade Current visit: Yes Status: Acute Patient with pericardial effusion on CT. No signs of tamponade. Could be contributing to her dyspnea especially with exertion. We will consult cardiology for further recommendations. Patient does have underlying autoimmune disease-Sjogren syndrome which could be the cause of this. We will check CRP, ESR levels. EKG does not show any signs of pericarditis. (3) Chest pain Current visit: Yes Status: Acute Patient with acute on chronic chest pain. Has been going on for more than a month. We will trend troponins. Could be related to a musculoskeletal disorder. We will consult cardiology for further recommendations. Monitor with telemetry. Qualifiers: Chest pain type: precordial pain Qualified Code(s): R07.2 - Precordial pain (4) HLD (hyperlipidemia) Current visit: No Status: Chronic Continue simvastatin. Will check lipid profile. Qualifiers: Hyperlipidemia type: unspecified Qualified Code(s): E78.5 - Hyperlipidemia , unspecified (5) Hypertension Current visit: Yes Status: Chronic Blood pressure is well controlled. Qualifiers: Hypertension type: essential hypertension Qualified Code(s): I10 - Essential (primary) hypertension (6) Hypothyroid Current visit: Yes Status: Chronic Will check free T4 and TSH levels. Qualifiers: Hypothyroidism type: unspecified Qualified Code(s): E03.9 - Hypothyroidism , unspecified (7) Sjogrens syndrome Current visit: Yes Status: Acute Patient was previously taking Plaquenil but this was held per rheumatology recommendations. Consider consulting rheumatology for further recommendations. Qualifiers: Sjogren's organ involvement: keratoconjunctivitis Qualified 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 Internal Medicine - H&P: HPI Chief complaint: Shortness of breath, chest pain Admitted From: Emergency Dept Plans for Post Hospital Care: Home History of present illness: Ms. Ramey is a 71 year old female patient with a history of Sjogren's syndrome , arthritis, asthma, hyperlipidemia, hypothyroidism presented to the ER with complaints of chest pain and shortness of breath. Symptoms have been going on for several weeks now. She was admitted earlier this month and will do for coronary artery disease. She did not have a stress test done at that time but a 2-D echocardiogram was done. They did not show any wall motion abnormalities. Patient had normal ejection fraction there was no pericardial effusion. Patient was discharged home on treatment for possible bronchitis. She initially felt good but 2 days after she was discharged, she began to feel sick and was having worsening shortness of breath even with minimal exertion. This continued to progress and especially became more prominent over the past couple of days. As such she came to the ER. She describes chest pressure in the central part of her chest that is nonradiating except when she bends forward. At that time the pain radiates up to her neck and left ear. She denies any pedal edema. No orthopnea or PND. She denies any abdominal pain but when she was being examined in the ER, she was found to be tender in the left lower quadrant. Past Med Surg Social Fam HX - Past Medical History Attestation: Yes The following information was validated with the patient. Source: patient Medical history: arthritis, asthma, hyperlipidemia, hypertension, renal disease , thyroid disease Psychiatric history: no psych history - Past Surgical History Surgical History: non-contributory - Social History Smoking Status: Never smoker Smokeless Tobacco Status: No Alcohol use: none Drug use: none - Family History Mother Living Status: Father Living Status: Hx Family Cardiac Disorders: Yes (OR) Internal Medicine - H&P: Meds Albuterol Sulfate [Proair Hfa] 2 puff IH Q4H PRN 10/05/16 [History] Ascorbate Calcium [Vitamin C] 500 mg PO BID 10/05/16 [History] Aspirin 81 mg PO DAILY 10/05/16 [History] Atorvastatin [Lipitor] 40 mg PO HS 10/05/16 [History] Biotin 5 mg PO DAILY 10/05/16 [History] Calcium Carbonate/Vitamin D3 [Caltrate 600 + D Soft Chew Tab] 1 tab PO BID 10/05 [History] Cranberry Fruit Extract/Vit C [Azo Cranberry Softgel] 1 cap PO BID 10/05/16 [ History] Cyclosporine [Restasis] 1 drop OP BID 10/05/16 [History] Dapsone 100 mg PO Q48H 10/05/16 [History] Fluticasone Propionate Nasal [Flonase] 1 spray NS DAILY 10/05/16 [History] Fluticasone/Salmeterol [Advair 250-50 Diskus] 1 puff IH BID 10/05/16 [History] Ginkgo Biloba 40 mg PO DAILY 10/05/16 [History] Glucosamine/D3/Boswellia Pat [Osteo Bi-Flex Tablet] 1 tab PO BID 10/05/16 [ History] Hydroxychloroquine [Plaquenuil] 200 mg PO BID 10/05/16 [History] Ipratropium [place] 2 spray NS BID 10/05/16 [History] L. Acidophilus/Pectin, [place] [Acidophilus Probiotic Capsule] 1 cap PO DAILY 06/19 [History] Levothyroxine [Synthroid] 25 mcg PO 0630 10/05/16 [History] Lisinopril/Hydrochlorothiazide [Zestoretic 20-12.5 mg Tablet] 1 tab PO DAILY 06/19 [History] Multivit-Min/FA/Lycopen/Lutein [Centrum Silver Tablet] 1 tab PO DAILY 10/05/16 [ History] Potassium Gluconate [Potassium] 99 mg PO BID 10/05/16 [History] Ranitidine HCl [Acid Health Information Tech] 150 mg PO BID PRN 10/05/16 [History] Zinc Acetate [Galzin] 50 mg PO DAILY 10/05/16 [History] Azithromycin [Zithromax] 500 mg PO DAILY #4 tablet 10/06/16 [Rx] Guaifenesin [Guaifenesin ER] 600 mg PO BID PRN #30 tab.er.12h 10/06/16 [Rx] PredniSONE [Deltasone] 20 mg PO DAILY #4 tablet 10/06/16 [Rx] Allergies Procaine [From Novocain] Adverse Reaction (Verified 10/05/16 05:09) Swelling of Lip/Tongue/Throat All Systems PM: A 10-system review of systems was performed and is negative for pertinent findings except as documented above in the HPI. - Constitutional Constitutional: no chills, no fever(s), no night sweats - EENT Eyes: no change in vision, no discharge, no pain, no photophobia Ears: no ear discharge, no ear pain, no tinnitus Nose, mouth and throat: no dysphagia, no nasal discharge, no neck pain, no sore throat - Cardiovascular Cardiovascular ROS IM: chest pain, dyspnea, dyspnea on exertion, no diaphoresis , no lightheadedness, no palpitations, no syncope - Respiratory Respiratory: no cough, no dyspnea, no wheezing, no excessive phlegm production - Gastrointestinal Gastrointestinal: no abdominal pain, no diarrhea, no hematemesis, no hematochezia, no melena, no nausea, no vomiting - Constitutional Vitals: Temp Pulse Resp BP Pulse Ox 97.8 F 99 18 119/65 94 10/25/16 21:56 10/25/16 18:55 10/25/16 21:56 10/25/16 21:56 10/25/16 18:55 General appearance: Present: cooperative, mild distress, A&O X 3, answers questions appropriately - Eye Eye exam: Present: EOMI, PERRL, conjuntiva pink, sclera anicteric - ENT ENT exam: Present: mucous membranes dry - Neck Neck exam general surgery: Present: supple, trachea midline. Absent: lymphadenopathy - Respiratory Respiratory exam: Present: CTAB. Absent: accessory muscle use, rales, rhonchi, wheezes - Cardiovascular Cardiovascular exam: Present: RRR, +S1, +S2. Absent: diastolic murmur, gallop, rubs, systolic murmur - GI/Abdominal GI/Abdominal exam: Present: normal bowel sounds, soft, tenderness (left lower quadrant), no peritoneal signs. Absent: distended - Extremities Exam Extremities exam: Present: warm, radial pulses palpable and symetrical. Absent : calf tenderness, cyanotic, pedal edema - Neurological Exam Neurological exam: Present: CN II-XII intact, oriented X3, no focal deficits. Absent: facial droop, speech deficit Internal Med - H&P Results - Labs CBC & Chem 7: 10/25/16 18:44 10/25/16 18:44 - EKG Data EKG shows normal: sinus rhythm Rate: tachycardia - EKG Data Interpretation IM: normal EKG - Impressions Impressions Chest X-Ray 10/25/16 18:04 IMPRESSION: No acute cardiopulmonary abnormality D/ / Peter Zhang / Peter Zhang Interpreting Provider: Peter Zhang Abdomen/Pelvis CT 10/25/16 18:05 IMPRESSION: Mild uncomplicated sigmoid diverticulitis. There is a small pericardial effusion which is indeterminate in etiology but new compared to prior study. Small amount a gas is seen within the bladder. This may be related to recent instrumentation or cystitis. D/ / Lachelle Hi MD / Lachelle Hi MD Interpreting Provider: Lachelle Hi MD Chest CTA 10/25/16 19:32 IMPRESSION: 1. Small to moderate pericardial effusion measuring up to 1 cm which is new when compared with prior exam dated October 05, 2016. 2. No pulmonary embolism identified. D/ / Delfino Turner MD / Delfino Turner MD Interpreting Provider: Delfino Turner MD
[2016-10-25] MEDS: 0.9 % Sodium Chloride 1,000 ML IVC SCH (23:55)
[2016-10-25] MEDS: *HR* Morphine 2 MG/ML SYRINGE IVP PRN (23:56)
[2016-10-26 05:19] LABS: Basophils % 0.3 %; Eosinophils # 0.3 K/mcL (0.0-0.6); Eosinophils % 2.2 %; Hematocrit 27.9 % (35.3-44.9); Hemoglobin 8.9 g/dL (11.5-15.4); Immature Granulocytes % 0.4 % (0-4); Lymphocytes # 0.7 K/mcL (0.6-4.6); Mean Corpuscular HGB Conc 31.9 g/dL (31.6-35.5); Mean Corpuscular Volume 90.9 fL (83.0-100.0); Mean Platelet Volume 10.5 fL (9.4-12.4); Monocytes # 1.2 K/mcL (0.0-1.3); Monocytes % 10.5 %; Neutrophils # 9.5 K/mcL (1.6-8.9); Platelet Count 346 K/mcL (140-400); Red Blood Count 3.07 M/mcL (3.82-4.97); Red Cell Distribution Width 15.5 % (11.5-14.5); Segmented Neutrophils % 80.6 %
[2016-10-26 05:37] LABS: BUN/Creatinine Ratio 13 (6-26); Blood Urea Nitrogen 10 mg/dL (7-20); C-Reactive Protein 138 mg/L (Less than 5); Calcium 8.9 mg/dL (8.6-10.8); Carbon Dioxide 22 mEq/L (19-29); Chloride 96 mEq/L (98-109); Chol/HDL Ratio 1.9 (0-4.9); Cholesterol 109 mg/dL (< 200); Glucose 101 mg/dL (70-99); HDL Cholesterol 58 mg/dL (40-59); LDL Cholesterol,Calculated 43 mg/dL (0-99); Osmolality,Calculated 265 (280-300); Potassium 3.8 mEq/L (3.5-4.5); Sodium 128 mEq/L (136-145); Triglycerides 40 mg/dL (< 150); eGFR For African Americans > 60 (> 60); eGFR For Non-African Americans > 60 (> 60)
[2016-10-26] MEDS ORDERED: MetroNIDAZOLE 500 MG/100 ML 500 MG/100 ML BAG IVPB SCH (06:00)
[2016-10-26 06:14] LABS: Thyroid Stimulating Hormone 3.522 mcIU/mL (0.350-4.840)
[2016-10-26] MEDS: *HR* Heparin 5,000 UNIT/ML VIAL SQ SCH ×2 (06:34→17:31)
[2016-10-26] MEDS: Levothyroxine 25 MCG TABLET PO SCH (06:34)
[2016-10-26] MEDS: 0.9 % Sodium Chloride 1,000 ML IVC SCH ×2 (08:17→11:30)
[2016-10-26] MEDS: Aspirin 81 MG TAB.CHEW PO SCH (08:35)
--- NOTE | 2016-10-26 09:37 | Internal Med Progress Note ---
<John Crandall - Last Filed: 10/26/16 09:34> Date of Encounter: 10/26/16 Time of Encounter: 09:34 - Assessment and plan (1) Chest pain Current Visit: Yes Status: Acute Assessment and plan: - Likely etiologies include musculoskeletal in nature, cardiac secondary to pericardial effusion, fibromyalgia - Echo done earlier this month showed normal EF, no wall motion abnormalities. No stress test performed. - Cardiology consulted, appreciate input - Chest CT showed small new pericardial effusion likely causing her exertional SOB. - troponins negative, BNP normal Qualifiers: Chest pain type: precordial pain Qualified Code(s): R07.2 - Precordial pain (2) Diverticulitis Current Visit: Yes Status: Acute Assessment and plan: - Abdominal CT in ED showed mild sigmoid diverticulitis flare. - WBC 11.7. Mildly tachcardic at 100 bpm - Last colonoscopy is believed to be 2-3 years ago - Receiving cipro and flagyl, bowel rest. Qualifiers: Diverticulitis site: large intestine Diverticulitis bleeding: without bleeding Diverticulitis complication: without perforation or abscess Qualified Code(s): K57.32 - Diverticulitis of large intestine without perforation or abscess without bleeding (3) Pericardial effusion without cardiac tamponade Current Visit: Yes Status: Acute Assessment and plan: - Exertional SOB. Hemodynamically stable - Cardiology consulted. appreciate recommendations. (4) UTI (urinary tract infection) Current Visit: Yes Status: Acute Assessment and plan: - UA showed large leukocyte esterase, bacteria, micro WBC - Urine culture pending - Cipro started for diverticulitis. Will await urine culture results. Qualifiers: Urinary tract infection type: acute cystitis Hematuria presence: without hematuria Qualified Code(s): N30.00 - Acute cystitis without hematuria (5) Hypertension Current Visit: Yes Status: Chronic Assessment and plan: - Controlled. BP this AM 98/63 Qualifiers: Hypertension type: essential hypertension Qualified Code(s): I10 - Essential (primary) hypertension (6) Hypothyroid Current Visit: Yes Status: Chronic Assessment and plan: - Well controlled. TSH in ED was 3.522 Qualifiers: Hypothyroidism type: unspecified Qualified Code(s): E03.9 - Hypothyroidism , unspecified (7) Sjogrens syndrome Current Visit: Yes Status: Acute Assessment and plan: - Reports good control of symptoms - Follow up with rhematologist outpatient. Also states she has fibromyalgia. - Rule out cardiac causes of CP. Follow up outpatient. Qualifiers: Sjogren's organ involvement: keratoconjunctivitis Qualified 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 - Time Spent With Patient 25 - 35 minutes - Subjective Interval history: Patient was seen and examined sitting in chair this morning. She states she is still experiencing some CP with deep respirations substernally but none at rest. She denies SOB, n/v. She is still having some LLQ pain but states it is improved from yesterday. She denies any symptoms of fevers, chills. She also states that she has fibromyalgia and her pain may be related. Her last known colonoscopy was about 2 years ago and she states there were polyps but no evidence of diverticulosis that she can remember. - Constitutional Vitals: Temp Pulse Resp BP Pulse Ox 98.5 F 100 16 98/63 94 10/26/16 06:51 10/26/16 06:51 10/26/16 06:51 10/26/16 06:51 10/26/16 06:51 General appearance: Present: cooperative, mild distress, A&O X 3, answers questions appropriately Exam: Gen.: Vitals noted. No acute distress. AAOx3 HEENT: PERRL/EOMI, oropharynx clear, Normocephalic, atraumatic Neck: Supple. No adenopathy. Cardiac: RRR, no murmur, +S1/S2. No reproducible chest pain Pulmonary: CTA bilaterally, no wheezes, rales or rhonchi, equal chest expansion Abdomen: Mild LLQ tenderness. soft, BS noted, no guarding Back: Nontender throughout. MSK: ROM intact, no joint swelling noted Extremities: no BLE edema, nontender calf, no cyanosis or clubbing Neuro: A&Ox3, moves all extremities, no focal deficits Psych: Appropriate mood and behavior Internal Medicine: Result - Labs CBC & Chem 7: 10/26/16 04:04 10/26/16 04:04 Labs: Short CBC 10/26/16 Range/Units 04:04 WBC 11.7 H (4.3-11.1) K/mcL Hgb 8.9 L (11.5-15.4) g/dL Hct 27.9 L (35.3-44.9) % Plt Count 346 (140-400) K/mcL Neutrophils # 9.5 H (1.6-8.9) K/mcL [facility] 10/26/16 04:04 Sodium 128 L Potassium 3.8 Chloride 96 L Carbon Dioxide 22 BUN 10 Creatinine 0.79 Glucose 101 H Calcium 8.9 - ABG Interpretation ABG results: PT/INR, D-dimer PT 12.8 Seconds (9.4-12.1) H 10/25/16 18:44 Consult Discharge Plan - Plan Referrals: Paco Garcia DO [Primary Care Provider] - 11/03/16 10:00 am (web request 10/26/16) <Kade Mejia H - Last Filed: 10/26/16 13:18> Date of Encounter: 10/26/16 - Constitutional Vitals: Temp Pulse Resp BP Pulse Ox 98.4 F 93 14 94/60 95 10/26/16 11:02 10/26/16 11:02 10/26/16 11:07 10/26/16 11:02 10/26/16 11:07 Internal Medicine: Result - Labs CBC & Chem 7: 10/26/16 04:04 10/26/16 04:04 Labs: Short CBC 10/26/16 Range/Units 04:04 WBC 11.7 H (4.3-11.1) K/mcL Hgb 8.9 L (11.5-15.4) g/dL Hct 27.9 L (35.3-44.9) % Plt Count 346 (140-400) K/mcL Neutrophils # 9.5 H (1.6-8.9) K/mcL [facility] 10/26/16 04:04 Sodium 128 L Potassium 3.8 Chloride 96 L Carbon Dioxide 22 BUN 10 Creatinine 0.79 Glucose 101 H Calcium 8.9 - ABG Interpretation ABG results: PT/INR, D-dimer PT 12.8 Seconds (9.4-12.1) H 10/25/16 18:44 - Attending Attestation echo: moderate size pericardial effusion , cardiology to consider repeating another echo. Recommended rheumatology consult. I examined this patient and my medical decision-making was reviewed with the Resident Physician. I agree with the documented findings, disposition and treatment plan as described except to the extent set forth below.
--- NOTE | 2016-10-26 10:20 | Cardiology Consult Note ---
Date of Encounter: 10/26/16 Time of Encounter: 09:45 Assessment and Plan (1) Pericardial effusion without cardiac tamponade Current Visit: Yes Status: Acute Per cardiology: -CHest CT with small to moderate pericardial effusion. -Echo pending. -No rub noted per auscultation, -BP 90-100s systolic. -Reports increased chest pressure upon breathing and bending over. -Of note, sodium noted to be 128, on IV fluids per primary team at 125ml/hour. -Will decrease IV fluids to 50ml/hour. -Further recommendations pending echo. (2) Chest pressure Current Visit: Yes Status: Acute Per cardiology: -Patient reports chest pressure that is worsened by deep breathing and bending over, -Denies exertional symptoms. -ECG with no ischemic changes. -Echo 10/05/16 with LVEF 65%, indeterminate diastolic function, no significant valvular dysfunction, all esquivel with normal motion. -Echo pending -Pericardial effusion noted per CT. -Troponin negative. -Further recommendations pending echo. Discussion w patient/family: The assessment and plan as outlined above was discussed with the patient and/or family members who expressed understanding and agreement. All questions were answered. Thank you for involving us in the care of your patient. Please call with any questions. Discussed and reviewed with . History of Present Illness Consult date: 10/25/16 Requesting physician: Cheng Hyde Consult reason: pericardial effusion Chief complaint: chest pressure, cough History of present illness: Ms. Ramey is a 71 year old female with a relevant past medical history of hyperlipidemia, sjorgen's syndrome, raynauds, fibromyalgia, hypothyroidism, CKD , HTN. Patient has a history of CAD with father dying at age 54. Patient states for the past month she has had cough and chest pressure. Patient states chest pressure is midsternal and occurs at rest. Patient denies exertional component to chest pressure. Patient states pressure is increased by breathing and bending over. Patient states pressure is lessened by taking small, shallow breaths. Patient states she has also had a cough for the past month. Patient states cough is dry and is persistent. Past Med Surg Social Fam HX - Past Medical History Source: patient, old records reviewed, obtained from family Medical history: arthritis, asthma, hyperlipidemia, hypertension, renal disease , thyroid disease Psychiatric history: no psych history - Past Surgical History Surgical History: non-contributory - Social History Smoking Status: Never smoker Smokeless Tobacco Status: No Alcohol use: none Drug use: none - Family History Mother Living Status: Father Living Status: Hx Family Cardiac Disorders: Yes ([place]) Medications and Allergies Albuterol Sulfate [Proair Hfa] 2 puff IH Q4H PRN 10/05/16 [History] Ascorbate Calcium [Vitamin C] 500 mg PO BID 10/05/16 [History] Aspirin 81 mg PO DAILY 10/05/16 [History] Atorvastatin [Lipitor] 40 mg PO HS 10/05/16 [History] Biotin 5 mg PO DAILY 10/05/16 [History] Calcium Carbonate/Vitamin D3 [Caltrate 600 + D Soft Chew Tab] 1 tab PO BID 10/05 [History] Cranberry Fruit Extract/Vit C [Azo Cranberry Softgel] 1 cap PO BID 10/05/16 [ History] Cyclosporine [Restasis] 1 drop OP BID 10/05/16 [History] Dapsone 100 mg PO Q48H 10/05/16 [History] Fluticasone Propionate Nasal [Flonase] 1 spray NS DAILY 10/05/16 [History] Fluticasone/Salmeterol [Advair 250-50 Diskus] 1 puff IH BID 10/05/16 [History] Ginkgo Biloba 40 mg PO DAILY 10/05/16 [History] Glucosamine/D3/[place] [Osteo Bi-Flex Tablet] 1 tab PO BID 10/05/16 [ History] Hydroxychloroquine [Plaquenuil] 200 mg PO BID 10/05/16 [History] Ipratropium [place] 2 spray NS BID 10/05/16 [History] L. Acidophilus/Pectin, [place] [Acidophilus Probiotic Capsule] 1 cap PO DAILY 06/19 [History] Levothyroxine [Synthroid] 25 mcg PO 0630 10/05/16 [History] Lisinopril/Hydrochlorothiazide [Zestoretic 20-12.5 mg Tablet] 1 tab PO DAILY 06/19 [History] Multivit-Min/FA/Lycopen/[place]utein [Centrum Silver Tablet] 1 tab PO DAILY 10/05/16 [ History] Potassium Gluconate [Potassium] 99 mg PO BID 10/05/16 [History] Ranitidine HCl [Acid Traffic Control Officer] 150 mg PO BID PRN 10/05/16 [History] Zinc Acetate [Galzin] 50 mg PO DAILY 10/05/16 [History] Azithromycin [Zithromax] 500 mg PO DAILY #4 tablet 10/06/16 [Rx] Guaifenesin [Guaifenesin ER] 600 mg PO BID PRN #30 tab.er.12h 10/06/16 [Rx] PredniSONE [Deltasone] 20 mg PO DAILY #4 tablet 10/06/16 [Rx] Allergies Procaine [From Novocain] Adverse Reaction (Verified 10/05/16 05:09) Swelling of Lip/Tongue/Throat All Systems Review: A 10-system review of systems was performed and is negative for pertinent findings except as documented above in the HPI. - Cardiovascular Cardiovascular: as per HPI, other (Chest pressure with breathing) - Respiratory Respiratory: cough Physical Examination Vital Signs, Last 4 Hours Temp Pulse Resp BP Pulse Ox 10/26/16 07:54 16 89 10/26/16 06:51 98.5 F 100 16 98/63 94 General: Conversant, No Apparent Distress HEENT: Atraumatic, Normocephaly, Mucus Membranes Moist Neck: No JVD, Normal carotid pulses Cardiac: Reg Rate and Rhythm, Normal S1 and S2, No Murmur Lungs: Normal Breath Sounds, No Wheeze, Rales, Rhonchi Neuro: Alert and responsive, No focal deficits noted Abdomen: Soft, Non-Tender Skin: No rashes noted on visualized skin Musculoskeletal: No Chest Wall Tenderness Extremities: No Clubbing, No Cyanosis, Normal Pulses, Other (Mild bilateral pedal edema, non-pitting. ) Results 10/26/16 04:04 10/26/16 04:04 Lab Results Impressions Chest X-Ray 10/25/16 18:04 IMPRESSION: No acute cardiopulmonary abnormality D/ / Peter Zhang / Peter Zhang Interpreting Provider: Peter Zhang Abdomen/Pelvis CT 10/25/16 18:05 IMPRESSION: Mild uncomplicated sigmoid diverticulitis. There is a small pericardial effusion which is indeterminate in etiology but new compared to prior study. Small amount a gas is seen within the bladder. This may be related to recent instrumentation or cystitis. D/ / Lachelle Hi MD / Lachelle Hi MD Interpreting Provider: Lachelle Hi MD Chest CTA 10/25/16 19:32 IMPRESSION: 1. Small to moderate pericardial effusion measuring up to 1 cm which is new when compared with prior exam dated October 05, 2016. 2. No pulmonary embolism identified. D/ / Delfino Turner MD / Delfino Turner MD Interpreting Provider: Delfino Turner MD Active Medications Acetaminophen (Tylenol) 650 mg PO Q6HR PRN PRN Reason: Mild Pain (1-3) Stop: 04/26/17 23:03 Last Admin: 10/26/16 08:41 Dose: 650 mg Albuterol Sulfate (Albuterol Inhaler) 2 puff IH [id number] [facility] Stop: 04/27/17 00:01 Last Admin: 10/26/16 07:54 Dose: 2 puff Aspirin (Aspirin) 81 mg PO DAILY [facility] Stop: 04/27/17 09:01 Last Admin: 10/26/16 08:35 Dose: 81 mg Atorvastatin Calcium (Lipitor) 40 mg PO HS [facility] Stop: 04/27/17 21:01 Budesonide/Formoterol Fumarate (Symbicort) 2 puff IH BIDR [facility] PRN Reason: Protocol Stop: 04/27/17 22:01 Dapsone (Dapsone) 100 mg PO Q48H [facility] Stop: 04/26/17 23:16 Last Admin: 10/25/16 23:56 Dose: Not Given Heparin Sodium (Porcine) (Heparin) 5,000 unit SQ Q12HCO [facility] Stop: 04/27/17 06:01 Last Admin: 10/26/16 06:34 Dose: 5,000 unit Ciprofloxacin Lactate (Cipro Premix 400 Mg/200 Ml) 400 mg in 200 mls @ 200 mls/ hr IVPB Q12HR [facility] Stop: 04/27/17 06:01 Last Admin: 10/26/16 06:35 Dose: 200 mls/hr Metronidazole (Flagyl Premix 500 Mg/100 Ml) 500 mg in 100 mls @ 100 mls/hr IVPB Q8H [facility] Stop: 04/27/17 14:01 Levothyroxine Sodium (Synthroid) 25 mcg PO 0630 [facility] Stop: 04/27/17 06:31 Last Admin: 10/26/16 06:34 Dose: 25 mcg Morphine Sulfate (Morphine Sulfate) 2 mg IVP Q4HR PRN PRN Reason: Severe Pain (7-10) Stop: 04/26/17 23:03 Last Admin: 10/25/16 23:56 Dose: 2 mg Naloxone HCl (Narcan) 0.4 mg IVP Q2MIN PRN PRN Reason: Opioid Reversal Stop: 04/26/17 23:03 Promethazine HCl (Phenergan) 12.5 mg IVP Q6HR PRN PRN Reason: Nausea And Vomiting Stop: 04/26/17 23:03 Laboratory Tests 10/25/16 10/26/16 10/26/16 18:44 04:04 04:04 WBC 11.7 H Hgb 8.9 L Creatinine 0.79 Troponin I 0.00 C-Reactive Protein 138 H Triglycerides 40 Cholesterol 109 LDL Cholesterol, Calc 43 HDL Cholesterol 58 - Imaging and Cardiology Chest Xray: report reviewed Echo: pending Other Results: Chest CT report reviewed - EKG Interpretation EKG results cardiology: personally reviewed (ECG with sinus tachycardia, HR 109. ), other (Telemetry reviewed with average HR 101, sinus tachycardia.) Consult Discharge Plan - Plan Referrals: Paco Garcia DO [Primary Care Provider] - (web request 10/26/16)
[2016-10-26] MEDS ORDERED: Albuterol 2.5 MG/3 ML NEBULIZER IH PRN (13:19)
[2016-10-26] MEDS ORDERED: Saliva Stimulant 100ml BOTTLE PO PRN (13:21)
[2016-10-26] MEDS: MetroNIDAZOLE 500 MG/100 ML 500 MG/100 ML BAG IVPB SCH ×2 (13:46→21:49)
--- NOTE | 2016-10-26 15:42 | Rheumatology Consult Note ---
<YrnBambi herreradotty - Last Filed: 10/26/16 17:50> Date of Encounter: 10/26/16 Time of Encounter: 15:01 Rheumatology Assess and Plan (1) Pericardial effusion Current Visit: No CXR: no acute abnormality. CTA: no evidence of PE, small to moderate pericardial effusion. Echo from today showed LVEF 60-65%, normal LV chamber size, wall thickness, and function. small to moderate circumferential pericardial effusion, no evidence of tamponade. troponins negative ESR: 44 CRP: 138 Hg down to 8.9 from 12.4 earlier this month, stool occult blood negative. Plan: unsure if her pericardial effusion is related to her +TAYLOR/autoimmune disease. will start 20mg prednisone daily and monitor. will re check TAYLOR along with DS DNA, and hepatic panel, C3, C4 levels. will continue to follow while inpatient, and follow up outpatient as well. (2) Undifferentiated connective tissue disease Current Visit: No as above (3) Diverticulitis Current Visit: No mild diverticulitis. cipro/flagyl per primary team. discussed case with hospitalist. Will cautiously start 20mg prednisone daily to treat symptomatic pericardial effusion. Patient aware of risks and side effects. will monitor closely. Rheumatology HPI Consult date: 10/26/16 Requesting physician: Kade Mejia Consult reason: sjogrens syndrome with pericardial effusion Chief complaint: chest discomfort History of present illness: HPI: Ms. 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 Patient was recently hospitalized on 10/06/16 for similar symptoms and negative workup, but had no significant change in her symptoms when she went home. At her last hospital visit, she was discharged home on antibiotics, guanfenacin, steroids for treatment of possible bronchitis. Patient arrived to ED on 10/29/16 with CC of shortness of breath, chest discomfort and increased pain in her chest that radiates to her neck when leaning forward. She states she finished her course of antibiotics she was given from her last discharge. However, she did not feel any different when she went home. Her shortness of breath continued to worsen. She has increased shortness of breath when laying down, along with increased ear pain when laying down. She denies any recent sick contacts. she says she stopped taking plaquenil about 2-3 months ago because she did not have refills. Social Hx: denies smoking or history of smoking, denies illicit drug use, denies alcohol use. ROS: denies fever, admits to chills, denies redness/swelling of devan eye. denies nausea, vomiting, diarrhea. denies unintentional weight loss, reports decreased appetite. admits to dry eyes and dry mouth. denies history of chrons or ulcerative colitis. Denies blood in stool.s Does report dark stools. denies hematuria. she admits to aches all over her body, states it is hard for her to get comfortable. admits to pain and swelling in her knees. Prior workup: TSH WNL, CK: 296, TAYLOR: 1:1280, complement C3,C4 unremarkable. Negative antibodies: Antichronatin, CVOR NURSE, [place], SSA, SSB, Evangelina-1, SCL-70, centromere, CCP, antiphospholipid, anticardiolipin. She was seen once at outpatient rheumatology office on 06/25/16 as a referral from PCP. At that visit , her hydroxychloroquine dose was decreased to 200mg PO daily. 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 Past Med Surg Social Fam HX - Past Medical History Medical history: arthritis, asthma, hyperlipidemia, hypertension, renal disease , thyroid disease Psychiatric history: no psych history - Past Surgical History Surgical History: non-contributory - Social History Smoking Status: Never smoker Smokeless Tobacco Status: No Alcohol use: none Drug use: none - Family History Mother Living Status: Father Living Status: Hx Family Cardiac Disorders: Yes ([place]) Medications and Allergies Albuterol Sulfate [Proair Hfa] 2 puff IH Q4H PRN 10/05/16 [History] Ascorbate Calcium [Vitamin C] 500 mg PO BID 10/05/16 [History] Aspirin 81 mg PO DAILY 10/05/16 [History] Atorvastatin [Lipitor] 40 mg PO HS 10/05/16 [History] Biotin 5 mg PO DAILY 10/05/16 [History] Calcium Carbonate/Vitamin D3 [Caltrate 600 + D Soft Chew Tab] 1 tab PO BID 10/05 [History] Cyclosporine [Restasis] 1 drop OP BID 10/05/16 [History] Dapsone 100 mg PO Q48H 10/05/16 [History] Fluticasone Propionate Nasal [Flonase] 1 spray NS DAILY 10/05/16 [History] Ginkgo Biloba 40 mg PO DAILY 10/05/16 [History] Glucosamine/D3/Boswellia Pat [Osteo Bi-Flex Tablet] 1 tab PO BID 10/05/16 [ History] Ipratropium [place] 2 spray NS BID 10/05/16 [History] L. Acidophilus/Pectin, [place] [Acidophilus Probiotic Capsule] 1 cap PO DAILY 06/19 [History] Levothyroxine [Synthroid] 25 mcg PO 0630 10/05/16 [History] Lisinopril/Hydrochlorothiazide [Zestoretic 20-12.5 mg Tablet] 1 tab PO DAILY 06/19 [History] Multivit-Min/FA/Lycopen/Lutein [Centrum Silver Tablet] 1 tab PO DAILY 10/05/16 [ History] Potassium Gluconate [Potassium] 99 mg PO BID 10/05/16 [History] Fexofenadine HCl 180 mg PO DAILY 10/26/16 [History] Fluticasone/Salmeterol [Advair Hfa 115-21 Mcg Inhaler] 2 puff IH BID 10/26/16 [ History] Montelukast [Singulair] 10 mg PO HS 10/26/16 [History] Allergies Amoxicillin [From Augmentin] Allergy (Verified 10/26/16 13:04) Hives clavulanic acid [From Augmentin] Allergy (Verified 10/26/16 13:04) Hives Procaine [From Novocain] Adverse Reaction (Verified 10/05/16 05:09) Swelling of Lip/Tongue/Throat All Systems Review: A 10-system review of systems was performed and is negative for pertinent findings except as documented above in the HPI. Rheumatology Exam General: alert and oriented x3, sitting up in bed, appears in no acute distress. HEENT: PERRL, oral mucosa moist, dentition intact. CV: RRR, no murmurs, rubs, or gallops. Lungs: CTAB, no wheezes, rales, or rhonchi noted. Abdomen: soft, mildly distended. significant LLQ tenderness to palpation. Neuro: cranial nerves 2-12 intact. reflexes +2/4 bilaterally. normal gait. MSK: no cyanosis, clubbing, or edema noted on extremities. mild swelling noted on knees bilaterally. muscle strength 5/5 bilaterally. psych: appropriate mood, appropriate affect. Skin: no abnormal skin findings noted. Rheumatology Results 10/26/16 04:04 10/26/16 04:04 All other labs normal. Consult Discharge Plan - Plan Referrals: Paco Garcia DO [Primary Care Provider] - 11/03/16 10:00 am (web request 10/26/16) <Chris Ojeda - Last Filed: 10/26/16 18:27> Date of Encounter: 10/26/16 Rheumatology HPI History of present illness: Ms. Ramey is a 71 year old female All Systems Review: A 10-system review of systems was performed and is negative for pertinent findings except as documented above in the HPI. Rheumatology Exam Vital Signs, Last 4 Hours Temp Pulse Resp BP Pulse Ox 10/26/16 15:57 98.6 F 99 16 92/61 94 Rheumatology Results 10/26/16 04:04 10/26/16 04:04 All other labs normal. - Attending Attestation I examined this patient and my medical decision making was reviewed with the resident physician. I agree with the documented findings, disposition and treatment as described with these exceptions. Airam Ramey is a 71 year old female with PMH of urticaria, positive TAYLOR who has carried a diagnosis of Sjogrens who presents to the hospital with chest and abdominal pain found to have a pericardial effusion and diverticulitis. In regards to her autoimmune history, she has had a long history of urticaria on antihistamines. Eventually an TAYLOR was checked and she was clinically diagnosed with Sjogrens. On my recent labs on 08/19: TAYLOR 1:80, SSA negative, complements normal, dsDNA negative, ESR/CRP WNL. She also had been on plaquenil for a long period of time and this has been stopped. Today, vital stable. TTE with pericardial effusion. CT chest unremarkable. CT abdomen with mild uncomplicated sigmoid diverticulitis. At this time, she is symptomatic with pleurisy and pericardial effusion. She carries a history of an autoimmune disease though so it is possible that there could be an inflammatory autoimmune component. Other than serositis symptoms, no other signs of active disease. I had a discussion with the medicine attending. She seems to be more symptomatic from pericardial effusion and pleuritis than diverticulitis. I would favor a low dose of prednisone at 20 mg daily. I discussed the risks and benefits with the patient including bowel perforation given mild diverticular disease and she understood and risks were accepted; any bowel symptoms should prompt a return evaluation at the hospital if not improving expectantly. I will schedule a follow-up in Rheumatology clinic to follow clinical progress. She will also be following with cardiology and internal medicine for comorbid problems.
--- NOTE | 2016-10-26 16:21 | Electrocardiograph Report ---
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
[2016-10-26] MEDS: *HR* OxyCODONE Immed Rel 5 MG TABLET PO PRN ×2 (17:36→22:06)
[2016-10-26] MEDS: predniSONE 20 MG TABLET PO SCH (18:31)
[2016-10-26] MEDS: Budesonide/Formoterol 80/4.5 MDI IH SCH (19:55)
[2016-10-27] MEDS: *HR* Morphine 2 MG/ML SYRINGE IVP PRN (04:31)
[2016-10-27 04:32] LABS: Hematocrit 25.5 % (35.3-44.9); Hemoglobin 8.5 g/dL (11.5-15.4); Mean Corpuscular HGB Conc 33.3 g/dL (31.6-35.5); Mean Corpuscular Hemoglobin 29.5 pg (28.0-33.3); Mean Corpuscular Volume 88.5 fL (83.0-100.0); Mean Platelet Volume 10.3 fL (9.4-12.4); Platelet Count 337 K/mcL (140-400); Red Blood Count 2.88 M/mcL (3.82-4.97); Red Cell Distribution Width 15.2 % (11.5-14.5)
[2016-10-27 04:49] LABS: Alanine Aminotransferase 37 Units/L (0-55); Albumin 2.9 g/dL (3.5-5.0); Albumin/Globulin Ratio 0.9 (1.1-2.2); Alkaline Phosphatase 110 Units/L (38-126); Aspartate Amino Transferase 25 Units/L (5-34); BUN/Creatinine Ratio 14 (6-26); Bilirubin,Direct 0.7 mg/dL (0.0-0.5); Bilirubin,Indirect 0.5 mg/dL (0.0-1.2); Bilirubin,Total 1.2 mg/dL (0.2-1.2); Blood Urea Nitrogen 11 mg/dL (7-20); Calcium 8.6 mg/dL (8.6-10.8); Carbon Dioxide 23 mEq/L (19-29); Chloride 96 mEq/L (98-109); Globulin 3.1 g/dL (2.4-3.5); Glucose 143 mg/dL (70-99); Osmolality,Calculated 262 (280-300); Potassium 4.4 mEq/L (3.5-4.5); Sodium 125 mEq/L (136-145); eGFR For African Americans > 60 (> 60); eGFR For Non-African Americans > 60 (> 60)
[2016-10-27] MEDS: MetroNIDAZOLE 500 MG/100 ML 500 MG/100 ML BAG IVPB SCH (06:31)
[2016-10-27] MEDS: *HR* Heparin 5,000 UNIT/ML VIAL SQ SCH ×2 (06:32→17:12)
[2016-10-27] MEDS: Levothyroxine 25 MCG TABLET PO SCH (06:32)
[2016-10-27] MEDS: Budesonide/Formoterol 80/4.5 MDI IH SCH ×2 (07:53→20:46)
--- NOTE | 2016-10-27 10:15 | Internal Med Progress Note ---
<John Crandall - Last Filed: 10/27/16 11:43> Date of Encounter: 10/27/16 Time of Encounter: 10:12 - Assessment and plan (1) Pericardial effusion without cardiac tamponade Current Visit: Yes Status: Acute Assessment and plan: - Clinically improved since admission. Likely etiologies include Sjogren's syndrome - Cardiology consulted and recommended aspirin, IV fluids. Doubt cardiac in nature - Have consulted her outpatient decision analyst, Dr. Ojeda. He has suggested starting prednisone 20 mg twice a day, day #2 - Will be evaluated by PT/OT this afternoon (2) Chest pain Current Visit: Yes Status: Acute Assessment and plan: - Likely etiologies include pericardial effusion secondary to Sjogren's syndrome - Clinically improved since yesterday, is not currently complaining of chest pain, shortness of breath. - Cardiology consulted, suggested aspirin, IV fluids. Have consulted rheumatology - Rheumatology recommended starting prednisone 20 mg twice a day for inpatient relief of symptoms. - Patient will likely follow-up with Dr. Dyer as an outpatient for further management Qualifiers: Chest pain type: unspecified Qualified Code(s): R07.9 - Chest pain, unspecified; R07.8 - Other chest pain (3) Diverticulitis Current Visit: Yes Status: Acute Assessment and plan: - Abdominal CT in ED showed mild sigmoid diverticulitis flare. - WBC 9.2. Mildly tachcardia at 94 bpm - Last colonoscopy is believed to be 2-3 years ago - Receiving cipro and flagyl, low residue diet with good relief of symptoms. - We will likely continue Cipro and Flagyl as outpatient Qualifiers: Diverticulitis site: large intestine Diverticulitis bleeding: without bleeding Diverticulitis complication: without perforation or abscess Qualified Code(s): K57.32 - Diverticulitis of large intestine without perforation or abscess without bleeding (4) UTI (urinary tract infection) Current Visit: Yes Status: Acute Assessment and plan: - UA showed large leukocyte esterase, bacteria, micro WBC - Patient is currently asymptomatic - Urine culture preliminary shows gram-negative rods - Continue ciprofloxacin for time being, and await sensitivities and culture. Qualifiers: Urinary tract infection type: acute cystitis Hematuria presence: without hematuria Qualified Code(s): N30.00 - Acute cystitis without hematuria (5) Hypertension Current Visit: Yes Status: Chronic Assessment and plan: - Controlled. BP this AM 122/73 Qualifiers: Hypertension type: essential hypertension Qualified Code(s): I10 - Essential (primary) hypertension (6) Hypothyroid Current Visit: Yes Status: Chronic Assessment and plan: - Well controlled. TSH in ED was 3.522 - Continue Home Synthroid Qualifiers: Hypothyroidism type: unspecified Qualified Code(s): E03.9 - Hypothyroidism , unspecified (7) Sjogrens syndrome Current Visit: Yes Status: Acute Assessment and plan: - Reports good control of symptoms - Reports recently stopping Plaquenil, unsure of reason - Dr. Dyer, decision analyst as outpatient, and salted for acute exacerbation possibly as a cause of pericardial effusion, as above - Rule out cardiac causes of CP. Follow up outpatient. Qualifiers: Sjogren's organ involvement: keratoconjunctivitis Qualified 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 - Time Spent With Patient 25 - 35 minutes - Subjective Interval history: Patient was seen and examined sitting in chair this morning. She states that she is doing much better this morning and canned move around/or without experiencing the chest pain that she has previously experienced. She states her chest pain, shortness of breath are nearly at baseline. She has no longer having symptoms of dysuria. She does still admit to some lower left quadrant abdominal pain which is reproducible with palpation. She has not yet had a bowel movement since being here, however she states that this may be due to increased oral intake since admission. She is currently tolerating her meals without complications or complaints. She does state that she experienced some fevers overnight, which required a cool rag, ice packs. She currently is denying any symptoms. - Constitutional Vitals: Temp Pulse Resp BP Pulse Ox 98.5 F 96 18 137/81 92 10/27/16 07:31 10/27/16 07:31 10/27/16 07:31 10/27/16 07:31 10/27/16 07:31 General appearance: Present: cooperative, mild distress, A&O X 3, answers questions appropriately Exam: Gen.: Vitals noted. No acute distress. AAOx3. Pleasant appearing, speaking in full sentences HEENT: PERRL/EOMI, oropharynx clear, Normocephalic, atraumatic Neck: Supple. No adenopathy. Cardiac: RRR, no murmur, +S1/S2 Pulmonary: CTA bilaterally, no wheezes, rales or rhonchi, equal chest expansion Abdomen: Soft abdomen, tender to palpation in left lower quadrant, BS noted, no guarding Back: Nontender throughout. MSK: ROM intact, no joint swelling noted Extremities: no BLE edema, nontender calf, no cyanosis or clubbing Neuro: A&Ox3, moves all extremities, no focal deficits Psych: Appropriate mood and behavior Internal Medicine: Result - Labs CBC & Chem 7: 10/27/16 04:05 10/27/16 04:05 Labs: Short CBC 10/27/16 Range/Units 04:05 WBC 9.2 (4.3-11.1) K/mcL Hgb 8.5 L (11.5-15.4) g/dL Hct 25.5 L (35.3-44.9) % Plt Count 337 (140-400) K/mcL BMP 10/27/16 04:05 Sodium 125 L Potassium 4.4 Chloride 96 L Carbon Dioxide 23 BUN 11 Creatinine 0.79 Glucose 143 H Calcium 8.6 Liver Function 10/27/16 Range/Units 04:05 Total Bilirubin 1.2 (0.2-1.2) mg/dL Direct Bilirubin 0.7 H (0.0-0.5) mg/dL AST 25 (5-34) Units/L ALT 37 (0-55) Units/L Alkaline Phosphatase 110 (38-126) Units/L Albumin 2.9 L (3.5-5.0) g/dL - ABG Interpretation ABG results: PT/INR, D-dimer PT 12.8 Seconds (9.4-12.1) H 10/25/16 18:44 - VTE Documentation of Mechanical Device: Intermittent pneumatic compression device Consult Discharge Plan - Plan Referrals: Paco Garcia DO [Primary Care Provider] - 11/03/16 10:00 am (web request 10/26/16) <Brenton Burroughs - Last Filed: 10/27/16 17:34> Date of Encounter: 10/27/16 - Assessment and plan (1) Pericardial effusion without cardiac tamponade Current Visit: Yes Status: Acute Assessment and plan: Most likely related to connective tissue disease with component of pericarditis. Continue prednisone. (2) UTI (urinary tract infection) Current Visit: Yes Status: Acute Qualifiers: Urinary tract infection type: acute cystitis Hematuria presence: without hematuria Qualified Code(s): N30.00 - Acute cystitis without hematuria (3) Chest pain Current Visit: Yes Status: Resolved Qualifiers: Chest pain type: other chest pain Qualified Code(s): R07.89 - Other chest pain; R07.8 - Other chest pain (4) Hypertension Current Visit: Yes Status: Chronic Qualifiers: Hypertension type: essential hypertension Qualified Code(s): I10 - Essential (primary) hypertension (5) Diverticulitis Current Visit: Yes Status: Acute Qualifiers: Diverticulitis site: large intestine Diverticulitis bleeding: without bleeding Diverticulitis complication: without perforation or abscess Qualified Code(s): K57.32 - Diverticulitis of large intestine without perforation or abscess without bleeding (6) Sjogrens syndrome Current Visit: Yes Status: Chronic Qualifiers: Sjogren's organ involvement: keratoconjunctivitis Qualified 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 (7) Undifferentiated connective tissue disease Current Visit: Yes Status: Chronic - Time Spent With Patient My time was 40min today. - Constitutional Vitals: Temp Pulse Resp BP Pulse Ox 98.3 F 96 15 137/80 91 10/27/16 15:59 10/27/16 15:59 10/27/16 15:59 10/27/16 15:59 10/27/16 15:59 Internal Medicine: Result - Labs CBC & Chem 7: 10/27/16 04:05 10/27/16 04:05 Labs: Short CBC 10/27/16 Range/Units 04:05 WBC 9.2 (4.3-11.1) K/mcL Hgb 8.5 L (11.5-15.4) g/dL Hct 25.5 L (35.3-44.9) % Plt Count 337 (140-400) K/mcL BMP 10/27/16 04:05 Sodium 125 L Potassium 4.4 Chloride 96 L Carbon Dioxide 23 BUN 11 Creatinine 0.79 Glucose 143 H Calcium 8.6 Liver Function 10/27/16 Range/Units 04:05 Total Bilirubin 1.2 (0.2-1.2) mg/dL Direct Bilirubin 0.7 H (0.0-0.5) mg/dL AST 25 (5-34) Units/L ALT 37 (0-55) Units/L Alkaline Phosphatase 110 (38-126) Units/L Albumin 2.9 L (3.5-5.0) g/dL - ABG Interpretation ABG results: PT/INR, D-dimer PT 12.8 Seconds (9.4-12.1) H 10/25/16 18:44 - Attending Attestation I examined this patient and my medical decision-making was reviewed with the Resident Physician on 10/27/16. I agree with the documented findings, disposition and treatment plan as described except to the extent set forth below. Ms. Ramey is currently admitted for chest pain associated with pericardial effusion and UTI. She remains high risk due to potential for worsening issues with pericardial effusion. Ms. Ramey is doing better she says. Her chest pain has improved with prednisone. No fever or chills. Is able to walk around without difficulty. No GI symptoms at this time. Urine culture has growth but no ID yet. Exam Alert. Comfortable Mucus membranes moist Heart reg No wheeze No edema Abd soft I/P 1. Chest pain 2. Pericardial effusion 3. UTI Further diagnoses and plan as above. Anticipate d/c tomorrow.
[2016-10-27] MEDS: predniSONE 20 MG TABLET PO SCH (10:33)
[2016-10-27] MEDS: Aspirin 81 MG TAB.CHEW PO SCH (10:33)
[2016-10-27] MEDS: 0.9 % Sodium Chloride 1,000 ML IVC SCH (10:35)
--- NOTE | 2016-10-27 10:49 | Cardiology Progress Note ---
Date of Encounter: 10/27/16 Time of Encounter: 10:00 Assessment and Plan (1) Pericardial effusion without cardiac tamponade Current Visit: Yes Status: Acute Per cardiology: -CHest CT with small to moderate pericardial effusion. -Echo 10/26/16 with LVEF 60-65%, small to moderate circumferential pericardial effusion, no evidence of tamponade, all wall segments with normal motion. -No rub noted per auscultation, -BP 90-100s systolic. -Reports chest pressure improved. -Recommend repeating limited echocardiogram tomorrow. Can be completed as outpatient if patient is clinically stable from hospitalist standpoint. (2) Chest pressure Current Visit: Yes Status: Acute Per cardiology: -Patient reports chest pressure is much improved today. -Patient states she can now bend over without pain. -Patient states she does have some mild pressure with deep inspiration, however imrpoved since admission. -Troponin negative. -Ecg with no ischemic changes. Discussion w patient/family: The assessment and plan as outlined above was discussed with the patient and/or family members who expressed understanding and agreement. All questions were answered. Thank you for involving us in the care of your patient. Please call with any questions. Discussed and reviewed with . Subjective Principal diagnosis: chest pain Interval history: Patient states pain has improved today. Patient states she is able to bend over now without pain. Patient states cough has improved also. Objective Vital Signs, Last 4 Hours Temp Pulse Resp BP Pulse Ox 10/27/16 07:31 98.5 F 96 18 137/81 92 General: Conversant, No Apparent Distress HEENT: Atraumatic, Normocephaly, Mucus Membranes Moist Neck: No JVD, Normal carotid pulses Cardiac: Reg Rate and Rhythm, Normal S1 and S2, No Murmur Lungs: Normal Breath Sounds, No Wheeze, Rales, Rhonchi Neuro: Alert and responsive, No focal deficits noted Abdomen: Soft, Non-Tender Skin: No rashes noted on visualized skin Musculoskeletal: No Chest Wall Tenderness Extremities: No Clubbing, No Cyanosis, No Edema, Normal Pulses Results 10/27/16 04:05 10/27/16 04:05 Lab Results Active Medications Acetaminophen (Tylenol) 650 mg PO Q6HR PRN PRN Reason: Mild Pain (1-3) Stop: 04/26/17 23:03 Last Admin: 10/26/16 08:41 Dose: 650 mg Albuterol Sulfate (Albuterol Inhaler) 2 puff IH [id number] PRN PRN Reason: Shortness Of Breath/Wheezing Stop: 04/27/17 20:04 Last Admin: 10/27/16 07:54 Dose: 2 puff Aspirin (Aspirin) 81 mg PO DAILY [facility] Stop: 04/27/17 09:01 Last Admin: 10/27/16 10:33 Dose: 81 mg Atorvastatin Calcium (Lipitor) 40 mg PO HS [facility] Stop: 04/27/17 21:01 Last Admin: 10/26/16 21:49 Dose: 40 mg Budesonide/Formoterol Fumarate (Symbicort) 2 puff IH BIDR [facility] PRN Reason: Protocol Stop: 04/27/17 22:01 Last Admin: 10/27/16 07:53 Dose: 2 puff Dapsone (Dapsone) 100 mg PO Q48H [facility] Stop: 04/26/17 23:16 Last Admin: 10/25/16 23:56 Dose: Not Given Heparin Sodium (Porcine) (Heparin) 5,000 unit SQ Q12HCO [facility] Stop: 04/27/17 06:01 Last Admin: 10/27/16 06:32 Dose: 5,000 unit Ciprofloxacin Lactate (Cipro Premix 400 Mg/200 Ml) 400 mg in 200 mls @ 200 mls/ hr IVPB Q12HR [facility] Stop: 04/27/17 06:01 Last Admin: 10/27/16 06:31 Dose: 200 mls/hr Metronidazole (Flagyl Premix 500 Mg/100 Ml) 500 mg in 100 mls @ 100 mls/hr IVPB Q8H [facility] Stop: 04/27/17 14:01 Last Admin: 10/27/16 06:31 Dose: 100 mls/hr Sodium Chloride (0.9 % Sodium Chloride) 1,000 mls @ 50 mls/hr IVC .Q20H [facility] Stop: 04/27/17 10:46 Last Admin: 10/27/16 10:35 Dose: 50 mls/hr Levothyroxine Sodium (Synthroid) 25 mcg PO 0630 [facility] Stop: 04/27/17 06:31 Last Admin: 10/27/16 06:32 Dose: 25 mcg Morphine Sulfate (Morphine Sulfate) 2 mg IVP Q4HR PRN PRN Reason: Severe Pain (7-10) Stop: 04/26/17 23:03 Last Admin: 10/27/16 04:31 Dose: 2 mg Naloxone HCl (Narcan) 0.4 mg IVP Q2MIN PRN PRN Reason: Opioid Reversal Stop: 04/26/17 23:03 Oxycodone HCl (Roxicodone) 5 mg PO Q4HR PRN PRN Reason: Moderate Pain (4-6) Stop: 04/27/17 13:21 Last Admin: 10/26/16 22:06 Dose: 5 mg Prednisone (Prednisone) 20 mg PO DAILY [facility] Stop: 04/27/17 17:46 Last Admin: 10/27/16 10:33 Dose: 20 mg Promethazine HCl (Phenergan) 12.5 mg IVP Q6HR PRN PRN Reason: Nausea And Vomiting Stop: 04/26/17 23:03 Saliva Substitute (Biotene Moisturizing Rinse) 1 spray PO Q2H PRN PRN Reason: Dry Mouth Stop: 04/27/17 13:22 Laboratory Tests 10/27/16 10/27/16 04:05 04:05 Hgb 8.5 L Sodium 125 L Creatinine 0.79 - Imaging and Cardiology Chest Xray: report reviewed Echo: report reviewed - EKG Interpretation EKG results cardiology: other (Telemetry reviewed with average HR previous 12 hours noted to be 98, sinus rhythm. PVCs and PACs noted.) - VTE Documentation of Mechanical Device: Intermittent pneumatic compression device Consult Discharge Plan - Plan Referrals: Paco Garcia DO [Primary Care Provider] - 11/03/16 10:00 am (web request 10/26/16)
--- NOTE | 2016-10-27 13:45 | Rheumatology Progress Note ---
<Elena Garza - Last Filed: 10/27/16 13:54> Date of Encounter: 10/27/16 Time of Encounter: 13:42 Rheumatology Assess and Plan (1) Pericardial effusion Current Visit: Yes Status: Acute CXR: no acute abnormality. CTA: no evidence of PE, small to moderate pericardial effusion. Echo from today showed LVEF 60-65%, normal LV chamber size, wall thickness, and function. small to moderate circumferential pericardial effusion, no evidence of tamponade. troponins negative ESR: 44 CRP: 138 Hg down to 8.9 from 12.4 earlier this month, stool occult blood negative. LFTs unremarkable. Plan: continue with 20mg prednisone daily. will re check TAYLOR, DS DNA, C3, C4 levels pending. will continue to follow while inpatient, and follow up outpatient as well. please discharge on 20mg prednisone daily for two weeks. (2) Undifferentiated connective tissue disease Current Visit: Yes Status: Acute as above (3) Diverticulitis Current Visit: Yes Status: Acute mild diverticulitis. cipro/flagyl per primary team. discussed case with hospitalist. Will cautiously start 20mg prednisone daily to treat symptomatic pericardial effusion. Patient aware of risks and side effects. will monitor closely. Qualifiers: Diverticulitis site: large intestine Diverticulitis bleeding: without bleeding Diverticulitis complication: without perforation or abscess Qualified Code(s): K57.32 - Diverticulitis of large intestine without perforation or abscess without bleeding - Subjective Interval history: 71 year old female evaluated at bedside. Patient had no acute events overnight. She said she slept ok, but not like she can normally due to the noise in the hallways. Today, she states that her shortness of breath is improved, and she denies any chest pain or chest pressure. She states she does feel better compared to yesterday and is able to move around more. She is scheduled to be evaluated by PT/OT later today. Exam Vital Signs, Last 4 Hours Temp Pulse Resp BP Pulse Ox 10/27/16 10:45 98.2 F 99 14 127/79 92 Exam: General: alert and oriented x3, no acute distress. Patient is comfortably sitting up in the chair. CV: RRR, no murmurs, rubs, or gallops appreciated. no JVD. Respiration: CTAB Abdomen: soft, non distended, mild tenderness to LLQ. no masses or hepatomegaly appreciated. Extremities: no cyanosis, edema, or clubbing noted. Skin: no abnormal skin rashes or lesions noted. Objective Data 10/27/16 04:05 10/27/16 04:05 All other labs normal. - VTE Documentation of Mechanical Device: Intermittent pneumatic compression device Consult Discharge Plan - Plan Referrals: Paco Garcia, [Primary Care Provider] - 11/03/16 10:00 am (web request 10/26/16) <Chris Ojeda - Last Filed: 10/27/16 17:19> Date of Encounter: 10/27/16 Exam Vital Signs, Last 4 Hours Temp Pulse Resp BP Pulse Ox 10/27/16 15:59 98.3 F 96 15 137/80 91 Objective Data 10/27/16 04:05 10/27/16 04:05 All other labs normal. - Attending Attestation I examined this patient and my medical decision making was reviewed with the resident physician. I agree with the documented findings, disposition and treatment as described with these exceptions. Symptomatically chest pain, pleuritic pain has improved. Lungs clear, heart sounds clear and S1S2 regular. Complements pending which may be helpful in being more suggestive of autoimmune disease. UA without protein and RBCs. Anemia; will need to monitor closely as outpatient. Continue prednisone 20 mg po daily. I have follow-up scheduled next week to taper medications and follow clinically.
[2016-10-27] MEDS: metroNIDAZOLE 500 MG TABLET PO SCH ×2 (15:12→23:58)
[2016-10-28] MEDS: *HR* Heparin 5,000 UNIT/ML VIAL SQ SCH (06:01)
[2016-10-28] MEDS: Levothyroxine 25 MCG TABLET PO SCH (06:01)
[2016-10-28] MEDS: metroNIDAZOLE 500 MG TABLET PO SCH (06:01)
[2016-10-28 06:47] VITALS: BP 129/66
[2016-10-28 06:50] LABS: Hematocrit 25.7 % (35.3-44.9); Hemoglobin 8.4 g/dL (11.5-15.4); Mean Corpuscular HGB Conc 32.7 g/dL (31.6-35.5); Mean Corpuscular Hemoglobin 29.1 pg (28.0-33.3); Mean Corpuscular Volume 88.9 fL (83.0-100.0); Mean Platelet Volume 10.3 fL (9.4-12.4); Platelet Count 362 K/mcL (140-400); Red Blood Count 2.89 M/mcL (3.82-4.97); Red Cell Distribution Width 15.6 % (11.5-14.5)
[2016-10-28 07:09] LABS: BUN/Creatinine Ratio 13 (6-26); Blood Urea Nitrogen 9 mg/dL (7-20); Calcium 8.8 mg/dL (8.6-10.8); Carbon Dioxide 26 mEq/L (19-29); Chloride 101 mEq/L (98-109); Glucose 97 mg/dL (70-99); Osmolality,Calculated 273 (280-300); Potassium 3.8 mEq/L (3.5-4.5); Sodium 132 mEq/L (136-145); eGFR For African Americans > 60 (> 60); eGFR For Non-African Americans > 60 (> 60)
[2016-10-28] MEDS: predniSONE 20 MG TABLET PO SCH (08:47)
[2016-10-28] MEDS: Aspirin 81 MG TAB.CHEW PO SCH (08:48)
--- NOTE | 2016-10-28 09:52 | Discharge Summary ---
<LarsJohn chen - Last Filed: 10/28/16 15:58> Date of Encounter: 10/28/16 Time of Encounter: 10:07 - Discharge Diagnosis (1) Pericardial effusion without cardiac tamponade Priority: Primary Status: Acute (2) Chest pain Priority: Secondary Status: Resolved Qualifiers: Chest pain type: other chest pain Qualified Code(s): R07.89 - Other chest pain; R07.8 - Other chest pain (3) Diverticulitis Priority: Secondary Status: Acute Qualifiers: Diverticulitis site: large intestine Diverticulitis bleeding: without bleeding Diverticulitis complication: without perforation or abscess Qualified Code(s): K57.32 - Diverticulitis of large intestine without perforation or abscess without bleeding (4) UTI (urinary tract infection) Priority: Secondary Status: Acute Qualifiers: Urinary tract infection type: acute cystitis Hematuria presence: without hematuria Qualified Code(s): N30.00 - Acute cystitis without hematuria (5) Hypertension Priority: Secondary Status: Chronic Qualifiers: Hypertension type: essential hypertension Qualified Code(s): I10 - Essential (primary) hypertension (6) Hypothyroid Priority: Secondary Status: Chronic Qualifiers: Hypothyroidism type: unspecified Qualified Code(s): E03.9 - Hypothyroidism , unspecified - Discharge Medications Prescriptions: Ciprofloxacin [Cipro] 500 mg PO Q12HR #14 tab Lisinopril [Zestril] 20 mg PO DAILY #30 tablet metroNIDAZOLE [Flagyl] 500 mg PO Q8H #21 tab predniSONE [PredniSONE] 20 mg PO DAILY #20 tab Home Medications: Albuterol Sulfate [Proair Hfa] 2 puff IH Q4H PRN 10/05/16 [History] Ascorbate Calcium [Vitamin C] 500 mg PO BID 10/05/16 [History] Aspirin 81 mg PO DAILY 10/05/16 [History] Atorvastatin [Lipitor] 40 mg PO HS 10/05/16 [History] Biotin 5 mg PO DAILY 10/05/16 [History] Calcium Carbonate/Vitamin D3 [Caltrate 600 + D Soft Chew Tab] 1 tab PO BID 10/05 [History] Cyclosporine [Restasis] 1 drop OP BID 10/05/16 [History] Dapsone 100 mg PO Q48H 10/05/16 [History] Fluticasone Propionate Nasal [Flonase] 1 spray NS DAILY 10/05/16 [History] Ginkgo Biloba 40 mg PO DAILY 10/05/16 [History] Glucosamine/D3/[place]ia Pat [Osteo Bi-Flex Tablet] 1 tab PO BID 10/05/16 [ History] Ipratropium [place] 2 spray NS BID 10/05/16 [History] L. Acidophilus/Pectin, [place] [Acidophilus Probiotic Capsule] 1 cap PO DAILY 06/19 [History] Levothyroxine [Synthroid] 25 mcg PO 0630 10/05/16 [History] Multivit-Min/FA/Lycopen/Lutein [Centrum Silver Tablet] 1 tab PO DAILY 10/05/16 [ History] Potassium Gluconate [Potassium] 99 mg PO BID 10/05/16 [History] Fexofenadine HCl 180 mg PO DAILY 10/26/16 [History] Fluticasone/Salmeterol [Advair Hfa 115-21 Mcg Inhaler] 2 puff IH BID 10/26/16 [ History] Montelukast [Singulair] 10 mg PO HS 10/26/16 [History] Ciprofloxacin [Cipro] 500 mg PO Q12HR #14 tab 10/28/16 [Rx] Lisinopril [Zestril] 20 mg PO DAILY #30 tablet 10/28/16 [Rx] Saliva Stimulant [Biotene Moisturizing Rinse] 1 spray PO Q2H PRN bottle [Rx] metroNIDAZOLE [Flagyl] 500 mg PO Q8H #21 tab 10/28/16 [Rx] predniSONE [PredniSONE] 20 mg PO DAILY #20 tab 10/28/16 [Rx] Allergies/Adverse Reactions: Allergies Amoxicillin [From Augmentin] Allergy (Verified 10/26/16 13:04) Hives clavulanic acid [From Augmentin] Allergy (Verified 10/26/16 13:04) Hives Procaine [From Novocain] Adverse Reaction (Verified 10/05/16 05:09) Swelling of Lip/Tongue/Throat Procedures/tests Complete & Pending: Procedures Performed prior 72 hours Category Date Time Status EV limited echocardiogram Routine Y 10/28/16 08:00 Completed Date of admission: 10/26/16 14:15 Primary care physician: Paco Garcia DO Consults: 10/26/16 14:42 Consult to Physician [CONS] Routine Consulting Provider: Chris Ojeda Reason for Consult: Sjogrens syndrome with pericardial effusion Call Completed: Yes Discharging clinician: John Crandall Anticipated date of discharge: 10/28/16 - Patient Status Disposition: Home, Self-Care Condition: Good Functional capacity at discharge: independent ambulation Overall status at discharge: patient is progressing back to baseline - Discharge Instructions Instructions: Chest Pain (DC) Follow Up With: Paco Garcia, [Primary Care Provider] - 11/03/16 10:00 am (web request 10/26/16) Additional Instructions: Follow with Dr. Dyer next week as scheduled. Hospital course: Ms. Raemy is a 71 year old female presents to the regional emergency room with a chief complaint of chest pain. She states that the chest pain is exacerbated with lean forward and radiates up her neck. She has a known history of Sjogren syndrome, arthritis, asthma, hyperlipidemia, hypothyroidism. Recent echocardiogram showed no wall motion abnormalities and normal ejection fracture. She also was complaining of exertional shortness of breath. She has also been complaining of mild left lower quadrant abdominal pain and diarrhea. In the emergency room, his vital signs were within normal limits, heart rate of 99. Results were significant for anemia at 9.1/28.6, hyponatremia at 129, hypochloremia at 96. X-ray revealed no acute cardiopulmonary abnormality, abdominal/pelvis CT showed mild uncomplicated sigmoid diverticulitis as well as a small pericardial effusion. EKG normal sinus rhythm without diffuse ST elevations. She was admitted to medicine service with a diagnosis of diverticulitis, pericardial effusion without cardiac temponade and urinary tract infection. Course of hospital stay, cardiology was consulted and patient received a TTE each revealed all to moderate effusion without temponade. Recommended supportive measures and consultation to rheumatology. Rheumatology evaluated the patient and suspects a mixed connective tissue disease causing cardiac temponade and causing symptoms of shortness of breath on exertion and chest pain. Started on prednisone 20 mg twice a day good relief of her symptoms. Additional blood tests and ESR 44, CRP, 138. She was instructed to follow-up with her perinatal specialist, Dr. Dyer, as outpatient for follow-up. Her diverticulitis and urinary tract infection were treated with ciprofloxacin and metronidazole with good relief of symptoms. On day of discharge, she states that her symptoms have completely resolved and she is ready to return home. Her vital signs and lab results were within normal limits and she was medically stable for discharge at this time. She was instructed to follow-up with perinatal specialist, primary care physician. - Time Spent with Patient Total time spent providing and/or coordinating discharge services: 40 mins - Constitutional Vitals: Temp Pulse Resp BP Pulse Ox 98.5 F 95 16 129/66 91 10/28/16 06:45 10/28/16 06:45 10/28/16 06:45 10/28/16 06:45 10/28/16 06:45 Exam: Gen.: Vitals noted. No acute distress. AAOx3 HEENT: PERRL/EOMI, oropharynx clear, Normocephalic, atraumatic Neck: Supple. No adenopathy. Cardiac: RRR, no murmur, +S1/S2 Pulmonary: CTA bilaterally, no wheezes, rales or rhonchi, equal chest expansion Abdomen: Mildly tender to palpation over suprapubic and left lower quadrant, BS noted, no guarding Back: Nontender throughout. MSK: ROM intact, no joint swelling noted Extremities: no BLE edema, nontender calf, no cyanosis or clubbing Neuro: A&Ox3, moves all extremities, no focal deficits Psych: Appropriate mood and behavior <Brenton Burroughs - Last Filed: 10/28/16 18:19> Date of Encounter: 10/28/16 - Discharge Diagnosis (1) Pericardial effusion without cardiac tamponade Priority: Primary Status: Acute (2) UTI (urinary tract infection) Status: Acute Comments: Due to Klebsiella Qualifiers: Urinary tract infection type: acute cystitis Hematuria presence: without hematuria Qualified Code(s): N30.00 - Acute cystitis without hematuria (3) Chest pain Status: Resolved Qualifiers: Chest pain type: other chest pain Qualified Code(s): R07.89 - Other chest pain; R07.8 - Other chest pain (4) Hypertension Status: Chronic Qualifiers: Hypertension type: essential hypertension Qualified Code(s): I10 - Essential (primary) hypertension (5) Diverticulitis Status: Acute Qualifiers: Diverticulitis site: large intestine Diverticulitis bleeding: without bleeding Diverticulitis complication: without perforation or abscess Qualified Code(s): K57.32 - Diverticulitis of large intestine without perforation or abscess without bleeding (6) Sjogrens syndrome Priority: Secondary Status: Chronic Qualifiers: Sjogren's organ involvement: keratoconjunctivitis Qualified 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 (7) Undifferentiated connective tissue disease Priority: Secondary Status: Chronic Procedures/tests Complete & Pending: Procedures Performed prior 72 hours Category Date Time Status EV limited echocardiogram Routine Y 10/28/16 08:00 Completed Date of admission: 10/26/16 14:15 Primary care physician: Paco Garcia DO Consults: 10/26/16 14:42 Consult to Physician [CONS] Routine Consulting Provider: Chris Ojeda Reason for Consult: Sjogrens syndrome with pericardial effusion Call Completed: Yes - Patient Status Functional capacity at discharge: independent ambulation Overall status at discharge: patient is progressing back to baseline - Diet and Activity Activity: increase activity as tolerated Diet: advance to your usual diet Hospital course: Ms. Ramey is a 71 year old female - Time Spent with Patient Total time spent providing and/or coordinating discharge services: 37min - Constitutional Vitals: Temp Pulse Resp BP Pulse Ox 98.5 F 95 16 129/66 91 10/28/16 06:45 10/28/16 06:45 10/28/16 06:45 10/28/16 06:45 10/28/16 06:45 General appearance: Present: cooperative, mild distress, A&O X 3, answers questions appropriately - VTE Documentation of Mechanical Device: Intermittent pneumatic compression device - Attending Attestation I examined this patient and my medical decision-making was reviewed with the Resident Physician on 10/28/16. I agree with the documented findings, disposition and treatment plan as described except to the extent set forth below. Ms. Ramey has been admitted for chest pain and found to have pericardial effusion. She is now asymptomatic and afebrile with stable vitals. She is ready for discharge home. Exam Alert. Comfortable Mucus membranes dry Heart reg No wheeze Plan D/C home today Follow up as arranged.
--- NOTE | 2016-10-28 10:46 | Event Note ---
Date of Encounter: 10/28/16 Time of Encounter: 09:45 - Cardiology Event Note Repeat limited echocardiogram today with small circumferential pericardial effusion. NO evidence of tamponade noted. Follow has been set in cardiology clinic for one week. Cardiology will monitor in outpatient setting.
[2016-10-29 08:38] LABS: Complement Component 3 145 mg/dL (88-201); Complement Component 4 34 mg/dL (10-40)
[2016-10-29 08:44] LABS: ANA IgG by ELISA DETECTED (None Detected)
== END 2016-10-28 10:27 | disposition home or self-care (01) | DRG 315 ==
LOC: 2ANU 17:17 → EMEROO 17:17 → 2ANU 21:59 → SUATTDRO 10-26 14:15
PROVIDERS: ADMIT Family Medicine; ATTEND Internal Medicine

== ENCOUNTER 2018-04-04 00:48 | Inpatient (IN) ==
[2018-04-04] MEDS ORDERED: Isovue-370 500 ML INFUS..BTL IV ONE (00:56)
[2018-04-04] MEDS ORDERED: Ipratropium/Albuterol Neb 3 ML IH ONE (01:00)
--- NOTE | 2018-04-04 01:00 | Emergency Department Note ---
Disposition Clinical Impression: Pneumonia Qualifiers: Pneumonia type: due to unspecified organism Laterality: bilateral Lung location: lower lobe of lung Qualified Code(s): J18.1 - Lobar pneumonia, unspecified organism Chest pain Qualifiers: Chest pain type: unspecified Qualified Code(s): R07.9 - Chest pain, unspecified Sepsis Qualifiers: Sepsis type: sepsis due to unspecified organism Qualified Code(s): A41.9 - Sepsis, unspecified organism Disposition: Admitted As Inpatient Condition: Undetermined Referrals: Paco Garcia DO [Primary Care Provider] - Forms: ED Satisfaction Letter Time of Disposition: 03:12 Chest Pain HPI - General Chief Complaint: ED Chest Pain Stated Complaint: Chest Pain Time Seen by Provider: 04/04/18 00:55 Source: patient, EMS Mode of arrival: EMS Limitations: no limitations Vital Signs Reviewed: Yes Nursing Notes Reviewed: Yes - History of Present Illness HPI Narrative: 72-year-old female with history of pericardial effusion, COPD, arrives to the emergency department complaining of sudden onset chest pain, tachycardia, dyspnea, nausea. The patient states that she was resting comfortably and then started complaining of pain. She has associated dyspnea that time and decided to call EMS. EMS noted the patient was tachycardic. Her heart rate was sinus tachycardia in the 120s to 130s. The patient's pain is retrosternal and is ketan cribed as a pressure sensation. It is nonradiating. The patient denies any abdominal pain, worse but does admit to a productive cough and chills. She denies any other complaints at this time. She was noted to be 88% on room air per EMS and was placed on 2 L nasal cannula. - Related Data Home Medications Medication Instructions Recorded Confirmed Albuterol Sulfate [Proair Hfa] 2 puff IH Q4H PRN 10/05/16 12/16/16 Ascorbate Calcium [Vitamin C] 500 mg PO BID 10/05/16 12/16/16 Aspirin 81 mg PO DAILY 10/05/16 12/16/16 Atorvastatin [Lipitor] 40 mg PO HS 10/05/16 12/16/16 Biotin 5 mg PO DAILY 10/05/16 12/16/16 Calcium Carbonate/Vitamin D3 1 tab PO BID 10/05/16 12/16/16 [Caltrate 600 + D Soft Chew Tab] Cyclosporine [Restasis] 1 drop OP BID 10/05/16 12/16/16 Fluticasone Propionate Nasal 1 spray NS DAILY 10/05/16 12/16/16 [Flonase] Ginkgo Biloba 40 mg PO DAILY 10/05/16 12/16/16 Glucosamine/D3/Boswellia Pat 1 tab PO BID 10/05/16 12/16/16 [Osteo Bi-Flex Tablet] Ipratropium [place] 2 spray NS BID 10/05/16 12/16/16 L. Acidophilus/Pectin, [place] 1 cap PO DAILY 10/05/16 12/16/16 [Acidophilus Probiotic Capsule] Levothyroxine [Synthroid] 25 mcg PO 0630 10/05/16 12/16/16 Multivit-Min/FA/Lycopen/Lutein 1 tab PO DAILY 10/05/16 12/16/16 [Centrum Silver Tablet] Potassium Gluconate [Potassium] 99 mg PO BID 10/05/16 12/16/16 Fexofenadine HCl 180 mg PO DAILY 10/26/16 12/16/16 Montelukast [Singulair] 10 mg PO HS 10/26/16 12/16/16 Fluticasone/Salmeterol [Advair 1 puff IH BID 12/16/16 12/16/16 250-50 Diskus] Hydroxychloroquine [Plaquenuil] 200 mg PO BID 12/16/16 12/16/16 Previous Rx's Medication Instructions Recorded Lisinopril [Zestril] 20 mg PO DAILY #30 tablet 10/28/16 Allergies Allergy/AdvReac Type Severity Reaction Status Date / Time Amoxicillin [From Augmentin] Allergy Hives Verified 04/04/18 00:58 clavulanic acid Allergy Hives Verified 04/04/18 00:58 [From Augmentin] Procaine [From Novocain] AdvReac Swelling Verified 04/04/18 00:58 of Lip/Tongue/Throat All systems ED: reviewed and negative except as stated. Constitutional: Reports: chills, weakness. Denies: fever ENT ED: Denies: dysphagia Cardiovascular: Reports: chest pain, dyspnea on exertion. Denies: orthopnea, edema, syncope Respiratory: Reports: cough, dyspnea, sputum production. Denies: wheezes Gastrointestinal: Reports: nausea. Denies: abdominal pain, vomiting, diarrhea, constipation, hematemesis, melena, hematochezia Genitourinary: Denies: urgency, dysuria Musculoskeletal: Denies: back pain Integumentary: Denies: rash Neurological: Denies: headache, weakness, numbness Chest Pain PMH - Past Medical History Medical history: Reports: arthritis, asthma, hyperlipidemia, hypertension, renal disease, thyroid disease Surgical history: Reports: hip replacement Psychiatric history: Reports: no psych history Prior Cardiac Testing/Procedures: CTA Chest/CTA Coronary Angiography - Social History Smoking Status: Never smoker Alcohol use: Reports: none Drug use: Reports: none Physical Exam - General Limitations: no limitations General appearance: alert, in no apparent distress - Head Head exam: atraumatic, normocephalic, normal inspection - Eye Eye exam: Present: normal appearance, PERRL, EOMI - ENT ENT exam: normal exam, normal oropharynx, mucous membranes moist - Neck Neck exam: Present: normal inspection, full ROM, trachea midline - Chest Chest inspection: Present: normal inspection, symmetric chest wall rise - Respiratory Respiratory exam: Present: wheezes (mild). Absent: respiratory distress, accessory muscle use - Cardiovascular Cardiovascular exam: Present: normal rhythm, tachycardia, normal heart sounds - Abdominal Exam Abdominal exam: Present: soft, Non-Tender. Absent: tenderness, distention, guarding, rebound, rigidity - Extremities Exam Extremities exam: Present: normal inspection, full ROM. Absent: tenderness, pedal edema - Neurological Exam Neurological exam: Present: alert, oriented X3 - Skin Skin exam: Present: warm, dry, intact, normal color Course Vital Signs Temperature 101.3 F H 04/04/18 01:04 Pulse Rate 120 04/04/18 01:04 Respiratory Rate 21 04/04/18 01:04 Blood Pressure 142/87 04/04/18 01:04 O2 Sat by Pulse Oximetry 92 04/04/18 01:04 Temperature 101.3 F H 04/04/18 01:04 Pulse Rate 114 04/04/18 02:32 Respiratory Rate 20 04/04/18 02:32 Blood Pressure 129/63 04/04/18 02:32 O2 Sat by Pulse Oximetry 93 04/04/18 02:32 Oxygen Delivery Oxygen Delivery Nasal Cannula Chest Pain - MDM Narrative Medical decision making narrative: Patient's workup in the emergency department demonstrates findings consistent with bilateral lower lobe pneumonias. The patient was started on cefepime as well as vancomycin. The patient lactic acid is within normal limits. Blood cultures obtained. The patient is a leukocytosis but is tachycardic and febrile. She was given IV fluids here in the emergency department that begin to reduce the patient's heart rate. Patient states she is feeling much better at this time. The patient gets breathing treatments as well. She denies any other complaints of his comfortable with being admitted with IV antibodies at this time. No further questions or concerns noted. Accepted by Dr. Iglesias. - Medical Records Medical records reviewed: Yes I reviewed the patient's medical records. - Lab Data Lab results reviewed: Yes I reviewed the patient's lab results. Result diagrams: 04/04/18 01:18 04/04/18 01:18 Lab Results 04/04/18 04/04/18 04/04/18 Range/Units 01:18 01:18 01:18 WBC 10.6 (4.3-11.1) K/mcL RBC 4.70 (3.82-4.97) M/mcL Hgb 13.5 (11.5-15.4) g/dL Hct 40.2 (35.3-44.9) % MCV 85.5 (83.0-100.0) fL MCH 28.7 (28.0-33.3) pg MCHC 33.6 (31.6-35.5) g/dL RDW 14.5 (11.5-14.5) % Plt Count 280 (140-400) K/mcL MPV 10.4 (9.4-12.4) fL Immature Gran % 0.7 (0-4) % Seg Neutrophils % 77.0 % Lymphocytes % 9.2 % Monocytes % 11.0 % Eosinophils % 1.8 % Basophils % 0.3 % Neutrophils # 8.2 (1.6-8.9) K/mcL Lymphocytes # 1.0 (0.6-4.6) K/mcL Monocytes # 1.2 (0.0-1.3) K/mcL Eosinophils # 0.2 (0.0-0.6) K/mcL Basophils # 0.0 (0.0-0.2) K/mcL PT 13.5 H (9.4-12.1) Seconds INR 1.2 APTT 32.4 (26.0-36.0) Seconds Sodium 130 L (136-145) mEq/L Potassium 4.0 (3.5-5.1) mEq/L Chloride 97 L (98-107) mEq/L Carbon Dioxide 23 (23-29) mEq/L BUN 13 (8-23) mg/dL Creatinine 0.81 (0.60-1.20) mg/dL Est GFR ( Amer) > 60 (> 60) Est GFR (Non-Af Amer) > 60 (> 60) BUN/Creatinine Ratio 16 (6-26) Glucose 99 (70-105) mg/dL Calculated Osmolality 270 L (280-300) Lactic Acid (0.5-2.2) mmol/L Calcium 9.1 (8.6-10.3) mg/dL Magnesium 1.9 (1.6-2.6) mg/dL Total Bilirubin 1.1 H (0.3-1.0) mg/dL Direct Bilirubin 0.3 H (0.0-0.2) mg/dL Indirect Bilirubin 0.8 (0.0-1.2) mg/dL AST 18 (13-39) Units/L ALT 24 (7-52) Units/L Alkaline Phosphatase 118 H (34-104) Units/L Troponin I < 0.03 (< 0.04) ng/mL Serum Total Protein 5.9 L (6.4-8.9) g/dL Albumin 3.3 L (3.5-5.7) g/dL Globulin 2.6 (2.4-3.5) g/dL Albumin/Globulin Ratio 1.3 (1.1-2.2) 04/04/18 Range/Units 01:18 WBC (4.3-11.1) K/mcL RBC (3.82-4.97) M/mcL Hgb (11.5-15.4) g/dL Hct (35.3-44.9) % MCV (83.0-100.0) fL MCH (28.0-33.3) pg MCHC (31.6-35.5) g/dL RDW (11.5-14.5) % Plt Count (140-400) K/mcL MPV (9.4-12.4) fL Immature Gran % (0-4) % Seg Neutrophils % % Lymphocytes % % Monocytes % % Eosinophils % % Basophils % % Neutrophils # (1.6-8.9) K/mcL Lymphocytes # (0.6-4.6) K/mcL Monocytes # (0.0-1.3) K/mcL Eosinophils # (0.0-0.6) K/mcL Basophils # (0.0-0.2) K/mcL PT (9.4-12.1) Seconds INR APTT (26.0-36.0) Seconds Sodium (136-145) mEq/L Potassium (3.5-5.1) mEq/L Chloride (98-107) mEq/L Carbon Dioxide (23-29) mEq/L BUN (8-23) mg/dL Creatinine (0.60-1.20) mg/dL Est GFR ( Amer) (> 60) Est GFR (Non-Af Amer) (> 60) BUN/Creatinine Ratio (6-26) Glucose (70-105) mg/dL Calculated Osmolality (280-300) Lactic Acid 0.6 (0.5-2.2) mmol/L Calcium (8.6-10.3) mg/dL Magnesium (1.6-2.6) mg/dL Total Bilirubin (0.3-1.0) mg/dL Direct Bilirubin (0.0-0.2) mg/dL Indirect Bilirubin (0.0-1.2) mg/dL AST (13-39) Units/L ALT (7-52) Units/L Alkaline Phosphatase (34-104) Units/L Troponin I (< 0.04) ng/mL Serum Total Protein (6.4-8.9) g/dL Albumin (3.5-5.7) g/dL Globulin (2.4-3.5) g/dL Albumin/Globulin Ratio (1.1-2.2) - Radiology Data Radiology results reviewed: Yes I reviewed the patient's radiology results. Chest X-Ray 04/04/18 00:55 IMPRESSION: Bilateral atelectasis and/or pneumonia. D/ / Juan Monteiro MD / Juan Monteiro MD Interpreting Provider: Juan Monteiro MD Chest CTA 04/04/18 00:56 IMPRESSION: 1. Limited study with no definite scan evidence for pulmonary embolus. 2. Bilateral airspace disease probably represents a combination of atelectasis and pneumonia. Follow-up chest CT is recommended in 3 months given the nodular character of the left upper lobe airspace disease. D/ / Juan Monteiro MD / Juan Monteiro MD Interpreting Provider: Juan Monteiro MD - EKG Data EKG attestation: Yes I reviewed and interpreted this EKG. EKG results narrative: Heart rate 11 beats for minute. Sinus tachycardia. No ST elevation or ST depression noted. No other acute changes with the exception of the tachycardia. Attestation Statement - Attestation Attestation: Resident Attestation: I examined this patient and my medical decision making was reviewed with the Resident Physician. I agree with the documented findings, disposition and treatment plan as described except to the extent set forth below. We independently had [id number] contact with the patient. Patient history of pericardial effusion, COPD presents to the emergency department with chest pain tachycardia and shortness of breath. Patient dyspnea started approximately the same time and she decided to call EMS. Initially noted to be 88% on room air and febrile. Patient placed on oxygen. Patient undergoing workup for possible pneumonia. General: Well appearing, nontoxic, no acute distress Head: Normocephalic Atraumatic Eyes: PERRL, EOMI ENT: Airway patent, no stridor Neck: supple, no meningismus Chest: Lungs clear to auscultation bilateral Cardiac: Regular rhythm Abdomen: soft, nontender, nondistended; no guarding, rebound, or tenderness to percussion Musculoskeletal: Calves symmetric, nontender. Skin: No rash, normal skin tone. Neuro: Alert and Oriented to person, place, and time; No obvious focal deficit.
[2018-04-04 01:32] LABS: Basophils % 0.3 %; Eosinophils # 0.2 K/mcL (0.0-0.6); Eosinophils % 1.8 %; Hematocrit 40.2 % (35.3-44.9); Hemoglobin 13.5 g/dL (11.5-15.4); Immature Granulocytes % 0.7 % (0-4); Lymphocytes % 9.2 %; Mean Corpuscular HGB Conc 33.6 g/dL (31.6-35.5); Mean Corpuscular Hemoglobin 28.7 pg (28.0-33.3); Mean Corpuscular Volume 85.5 fL (83.0-100.0); Mean Platelet Volume 10.4 fL (9.4-12.4); Monocytes # 1.2 K/mcL (0.0-1.3); Neutrophils # 8.2 K/mcL (1.6-8.9); Platelet Count 280 K/mcL (140-400); Red Cell Distribution Width 14.5 % (11.5-14.5)
[2018-04-04 01:43] LABS: INR 1.2; Prothrombin Time 13.5 Seconds (9.4-12.1)
[2018-04-04 01:46] LABS: Activated Partial Thrombo Time 32.4 Seconds (26.0-36.0)
[2018-04-04 01:58] LABS: Alanine Aminotransferase 24 Units/L (7-52); Albumin 3.3 g/dL (3.5-5.7); Albumin/Globulin Ratio 1.3 (1.1-2.2); Alkaline Phosphatase 118 Units/L (34-104); Aspartate Amino Transferase 18 Units/L (13-39); BUN/Creatinine Ratio 16 (6-26); Bilirubin,Direct 0.3 mg/dL (0.0-0.2); Bilirubin,Indirect 0.8 mg/dL (0.0-1.2); Bilirubin,Total 1.1 mg/dL (0.3-1.0); Blood Urea Nitrogen 13 mg/dL (8-23); Calcium 9.1 mg/dL (8.6-10.3); Carbon Dioxide 23 mEq/L (23-29); Chloride 97 mEq/L (98-107); Globulin 2.6 g/dL (2.4-3.5); Glucose 99 mg/dL (70-105); Magnesium 1.9 mg/dL (1.6-2.6); Osmolality,Calculated 270 (280-300); Sodium 130 mEq/L (136-145); Total Protein 5.9 g/dL (6.4-8.9); Troponin I < 0.03 ng/mL (< 0.04); eGFR For Non-African Americans > 60 (> 60)
[2018-04-04] MEDS ORDERED: 0.9 % Sodium Chloride 1,000 ML IVC ONE (02:12)
[2018-04-04] MEDS ORDERED: Cefepime HCl 1,000 MG in Water for inj. (sterile) 20 ML 10 ML IVP STA (02:52)
[2018-04-04 04:38] LABS: Bilirubin,Urine Negative (Negative); Blood,Urine Small (Negative); Clarity,Urine Clear (Clear); Color,Urine Yellow (Yellow); Glucose,Urine (UA) Normal (Normal); Ketones,Urine Negative (Negative); Leukocyte Esterase,Urine Moderate (Negative); Nitrite,Urine Negative (Negative); Protein,Urine Negative (Neg-Trace); Urobilinogen,Urine Normal (Normal)
[2018-04-04 04:41] LABS: Bacteria,Urine Many per hpf (None-Few); Hyaline Casts,Urine None Seen per lpf (None-Few); Squamous Epithelial Cell,Urine Moderate per lpf (None-Few); WBC,Urine 15-30 per hpf (0-3)
[2018-04-04] MEDS ORDERED: Naloxone 0.4 MG/ML INJ IVP PRN (06:18)
[2018-04-04] MEDS ORDERED: Ondansetron 4 MG/2 ML VIAL IVP PRN (06:18)
--- NOTE | 2018-04-04 06:43 | Internal Med History&Physical ---
Date of Encounter: 04/04/18 Time of Encounter: 05:21 Internal Medicine - H&P: HPI Chief complaint: Bilateral pneumonia Admitted From: Emergency Dept Plans for Post Hospital Care: Home History of present illness: Ms. Ramey is a 72 year old female Patient presented to the emergency room with sudden onset chest pain, tac hycardia shortness of breath and nausea. She had been resting at home when her symptoms started. She has been experiencing a cough for about 1 week has been progressively getting worse. Patient has a history of asthma but does not require home oxygen. She uses inhalers and has a nebulizer but does not use it. With her increasing shortness of breath patient called ambulance to come to the emergency room for further evaluation. In the emergency room patient's temperature was 101.3, heart rate of 120, respiratory rate of 21. She was saturating 92% on 2 L. Patient's CBC was within normal limits, BMP showed a sodium of 1:30. Troponins less than 0.03, and urinalysis showed moderate leukocyte esterase with small blood and many bacteria. Chest x-ray showed bilateral atelectasis and/or pneumonia, CT angios showed no definitive evidence for pulmonary embolus but did show bilateral airspace disease probably representing combination of atelectasis and pneumonia. Radiologist recommended follow-up chest CT in 3 months due to the nodular characteristics of the airspace disease. Patient's EKG showed sinus tachycardia but no ischemic changes. Patient was given Tylenol, started on IV fluids, blood cultures were drawn and she was given cefepime and vancomycin and breathing treatments. She was sent to the medical floor for further management. Upon my evaluation, patient states she is feeling better. She denies nausea, vomiting, diarrhea, constipation and chest pain but is experiencing some shortness of breath. She denies productive cough. Past Med Surg Social Fam HX - Past Medical History Medical history: arthritis, asthma, hyperlipidemia, hypertension, renal disease, thyroid disease Additional medical history: sjogrens Psychiatric history: no psych history - Past Surgical History Surgical History: hip replacement Additional surgical history: B/L hip replacement - Social History Smoking Status: Never smoker Smokeless Tobacco Status: No Alcohol use: none Drug use: none - Family History Mother Living Status: Hx Family Medical Disorders: (Rheumatic fever) Father Living Status: Hx Family Cardiac Disorders: Yes (CA) Internal Medicine - H&P: Meds Albuterol Sulfate [Proair Hfa] 2 puff IH Q4H PRN 10/05/16 [History] Ascorbate Calcium [Vitamin C] 500 mg PO BID 10/05/16 [History] Aspirin 81 mg PO DAILY 10/05/16 [History] Atorvastatin [Lipitor] 40 mg PO HS 10/05/16 [History] Biotin 5 mg PO DAILY 10/05/16 [History] Calcium Carbonate/Vitamin D3 [Caltrate 600 + D Soft Chew Tab] 1 tab PO BID 10/05/16 [History] Cyclosporine [Restasis] 1 drop OP BID 10/05/16 [History] Fluticasone Propionate Nasal [Flonase] 1 spray NS DAILY 10/05/16 [History] Ginkgo Biloba 40 mg PO DAILY 10/05/16 [History] Glucosamine/D3/Boswellia Pat [Osteo Bi-Flex Tablet] 1 tab PO BID 10/05/16 [History] Ipratropium [place] 2 spray NS BID 10/05/16 [History] L. Acidophilus/Pectin, [place] [Acidophilus Probiotic Capsule] 1 cap PO DAILY 10/05/16 [History] Levothyroxine [Synthroid] 25 mcg PO 0630 10/05/16 [History] Multivit-Min/FA/Lycopen/Lutein [Centrum Silver Tablet] 1 tab PO DAILY 10/05/16 [History] Potassium Gluconate [Potassium] 99 mg PO BID 10/05/16 [History] Fexofenadine HCl 180 mg PO DAILY 10/26/16 [History] Montelukast [Singulair] 10 mg PO HS 10/26/16 [History] Lisinopril [Zestril] 20 mg PO DAILY #30 tablet 10/28/16 [Rx] Fluticasone/Salmeterol [Advair 250-50 Diskus] 1 puff IH BID 12/16/16 [History] Hydroxychloroquine [Plaquenuil] 200 mg PO BID 12/16/16 [History] Allergy/AdvReac Type Severity Reaction Status Date / Time Amoxicillin [From Augmentin] Allergy Hives Verified 04/04/18 00:58 clavulanic acid Allergy Hives Verified 04/04/18 00:58 [From Augmentin] Procaine [From Novocain] AdvReac Swelling Verified 04/04/18 00:58 of Lip/Tongue/Throat All Systems PM: A 10-system review of systems was performed and is negative for pertinent findings except as documented above in the HPI. - Constitutional Vitals: Temp Pulse Resp BP Pulse Ox 98.2 F 104 16 156/84 94 04/04/18 04:33 04/04/18 04:33 04/04/18 04:33 04/04/18 04:33 04/04/18 04:33 General appearance: Present: cooperative, A&O X 3, pleasant, no acute distress, answers questions appropriately Exam: - - Head Head exam: Present: normal inspection - Eye Eye exam: Present: EOMI, normal appearance - Neck Neck exam general surgery: Absent: tenderness - Respiratory Respiratory exam: Present: rales. Absent: accessory muscle use, chest wall tenderness, CTAB, respiratory distress, rhonchi, wheezes - Cardiovascular Cardiovascular exam: Present: RRR. Absent: diastolic murmur, systolic murmur - GI/Abdominal GI/Abdominal exam: Present: normal bowel sounds, soft. Absent: tenderness - Extremities Exam Extremities exam: Present: warm, radial pulses palpable and symmetrical. Absent: calf tenderness, pedal edema, tenderness - Neurological Exam Neurological exam: Present: no focal deficits, strengths equal and symetr thr oughout. Absent: motor sensory deficit, facial droop, speech deficit - Skin Skin exam: Present: dry, normal color, warm Internal Med - H&P Results - Labs CBC & Chem 7: 04/04/18 01:18 04/04/18 01:18 Labs: Short CBC 04/04/18 Range/Units 01:18 WBC 10.6 (4.3-11.1) K/mcL Hgb 13.5 (11.5-15.4) g/dL Hct 40.2 (35.3-44.9) % Plt Count 280 (140-400) K/mcL Neutrophils # 8.2 (1.6-8.9) K/mcL BMP 04/04/18 01:18 Sodium 130 L Potassium 4.0 Chloride 97 L Carbon Dioxide 23 BUN 13 Creatinine 0.81 Glucose 99 Calcium 9.1 Cardiac Enzymes 04/04/18 Range/Units 01:18 Troponin I < 0.03 (< 0.04) ng/mL Liver Function 04/04/18 Range/Units 01:18 Total Bilirubin 1.1 H (0.3-1.0) mg/dL Direct Bilirubin 0.3 H (0.0-0.2) mg/dL AST 18 (13-39) Units/L ALT 24 (7-52) Units/L Alkaline Phosphatase 118 H (34-104) Units/L Albumin 3.3 L (3.5-5.7) g/dL Urine 04/04/18 Range/Units 04:16 Urine Color Yellow (Yellow) Urine Clarity Clear (Clear) Urine pH 6.0 (5.0-8.0) pH Units Ur Specific [place] 1.020 (1.010-1.025) Urine Protein Negative (Neg-Trace) mg/dL Urine Glucose (UA) Normal (Normal) mg/dL - Impressions ITS Impressions Chest X-Ray 04/04/18 00:55 IMPRESSION: Bilateral atelectasis and/or pneumonia. D/ / Juan Monteiro MD / Juan Monteiro MD Interpreting Provider: Juan Monteiro MD Chest CTA 04/04/18 00:56 IMPRESSION: 1. Limited study with no definite scan evidence for pulmonary embolus. 2. Bilateral airspace disease probably represents a combination of atelectasis and pneumonia. Follow-up chest CT is recommended in 3 months given the nodular character of the left upper lobe airspace disease. D/ / Juan Monteiro MD / Juan Monteiro MD Interpreting Provider: Juan Monteiro MD - Assessment and plan (1) Pneumonia Current Visit: Yes Status: Acute Assessment and plan: Bilateral pneumonia seen on CT and chest x-ray. CT also indicated nodular airspace disease with recommended follow-up chest CT in 3 months. Patient was started on cefepime and vancomycin in the emergency room. Blood cultures were drawn. Continue IV antibiotics Follow-up blood cultures when available Oxygen supplementation as needed Monitor for worsening signs of infection Qualifiers: Pneumonia type: due to unspecified organism Laterality: bilateral Lung location: lower lobe of lung Qualified Code(s): J18.1 - Lobar pneumonia, unspecified organism (2) Sepsis Current Visit: Yes Status: Acute Assessment and plan: Patient initially met sepsis criteria with elevated temperature of 101.3, pulse of 120 and respiratory rate of 21. Patient's lactic acid 0.6 however and she did not have an elevated white count. Patient's vital signs have since imp roved. Continue to monitor Treating bilateral pneumonia as above Qualifiers: Sepsis type: sepsis due to unspecified organism Qualified Code(s): A41.9 - Sepsis, unspecified organism (3) Asthma Current Visit: No Status: Chronic Assessment and plan: History of asthma, currently not wheezing. When necessary breathing treatments Oxygen supplementation as needed Qualifiers: Asthma severity: unspecified severity Asthma complication type: uncomplicated Qualified Code(s): J45.909 - Unspecified asthma, uncomplicated (4) DVT prophylaxis Current Visit: Yes Status: Acute Assessment and plan: Subcutaneous heparin - Time Spent With Patient Total time spent is greater than 50% in coordination of care (as documented) at patient's floor/unit and/or counseling patient: Greater than 35 minutes
[2018-04-04] MEDS: *HR* Heparin 5,000 UNIT/ML VIAL SQ SCH ×2 (08:13→17:27)
[2018-04-04 10:40] LABS: BUN/Creatinine Ratio 14 (6-26); Blood Urea Nitrogen 11 mg/dL (8-23); Calcium 8.5 mg/dL (8.6-10.3); Carbon Dioxide 24 mEq/L (23-29); Chloride 100 mEq/L (98-107); Glucose 133 mg/dL (70-105); Osmolality,Calculated 275 (280-300); Potassium 3.9 mEq/L (3.5-5.1); Sodium 132 mEq/L (136-145); eGFR For Non-African Americans > 60 (> 60)
[2018-04-04] MEDS: Ipratropium/Albuterol Neb 3 ML IH PRN ×2 (11:13→20:09)
[2018-04-04] MEDS: Budesonide/Formoterol 160/4.5 1 PUFF INH IH SCH ×2 (11:13→20:09)
[2018-04-04] MEDS: Tiotropium 18 MCG inhalation IH SCH (11:17)
--- NOTE | 2018-04-04 11:57 | Internal Med Progress Note ---
Hospitalist Progress Note - Encounter Date of Encounter: 04/04/18 Time of Encounter: 09:15 - Subjective Interval History: Patient was seen and assessed at bedside at 9:15 AM. Daughter is at bedside. Patient reports still having chest pain only with cough and deep inspiration. She is requiring supplemental O2 that she had not required in the past. She denies shortness of breath, nausea, vomiting, headache, dizziness, diarrhea. Plan of care was discussed, questions answered. - Exam Vitals: Temp Pulse Resp BP Pulse Ox 98.5 F 96 16 127/87 91 04/04/18 11:16 04/04/18 11:16 04/04/18 11:17 04/04/18 11:16 04/04/18 11:17 Exam: General: Pt resting quietly on bed, no distress. Skin: pwd, no rashes, lesions, redness Neurological: Pt is alert and awake, oriented x 3, Speech is clear, PERRLA, EOMI, no nystagmus, no pronator drift. strength equal x 4 extremities HEENT: mucous mumbranes moist, no conjuctival pallor Neck: supple, no tracheal deviation, no lymphadenopathy, tenderness, no thyromegaly Heart: S1S2 heard without gallops, clicks, murmurs, no bradycardia or tachycardia, pt has no peripheral edema, pedal and radial pulses palpable bilaterally. Lungs: clear throughout without wheezing, rales, or ronchi, respirations are unlabored Abdomen: soft and non tender with bowel sound present, no hepatomegaly. Psych: Normal affect with good eye contact - - Assessment and Plan (1) Pneumonia Current Visit: Yes Status: Acute Assessment and Plan: Pt presented to the ED with 1 week history of cough, increasingly becoming worse with chest pain, shortness of breath and nausea. ON admittion, she met sepsis criteria with tachycardia, fever, and tachypnea, which have since resolved. Chest xray and CT showed possible pneumonia and with given vitals, she is being treated with IV antibiotics. She has been treated with IVF, blood cultures which remain with no growth so far today, and she has been stared on IV Cefepime and Vancomycin. Strep pneumo and legionella ordered and pending. Pts home asthma medications have been restarted. She is requiring supplemental 02 that she does not require at home. Continue IV antibiotics Home medicaitons 02 as needed to maintain sats > 92% Pulse ox Monitor vitals and labs (2) Sepsis Current Visit: Yes Status: Acute (3) DVT prophylaxis Current Visit: Yes Status: Acute Assessment and Plan: Heparin subcutaneous twice a day (4) UTI (urinary tract infection) Current Visit: Yes Status: Acute Assessment and Plan: Urine with moderate amount of leukocyte esterase, WBC and many bacteria. Culture is ordered and pending. Continue current IV antibiotics and change if needed based on culture results. (5) Asthma Current Visit: Yes Status: Chronic Assessment and Plan: Chronic. Continue home medications and inhalers duonebs prn (6) HLD (hyperlipidemia) Current Visit: Yes Status: Chronic Assessment and Plan: Chronic. Continue home dose of Lipitor. DVT Prophylaxis: Heparin SQ - Time Spent with Patient Total time spent is greater than 50% in coordination of care (as documented) at patient's floor/unit and/or counseling patient: less than 15 minutes Plan of Care Discussed with: patient Internal Medicine: Result - Labs CBC & Chem 7: 04/04/18 01:18 04/04/18 09:43 Labs: Short CBC 04/04/18 Range/Units 01:18 WBC 10.6 (4.3-11.1) K/mcL Hgb 13.5 (11.5-15.4) g/dL Hct 40.2 (35.3-44.9) % Plt Count 280 (140-400) K/mcL Neutrophils # 8.2 (1.6-8.9) K/mcL BMP 04/04/18 04/04/18 01:18 09:43 Sodium 130 L 132 L Potassium 4.0 3.9 Chloride 97 L 100 Carbon Dioxide 23 24 BUN 13 11 Creatinine 0.81 0.78 Glucose 99 133 H Calcium 9.1 8.5 L Cardiac Enzymes 04/04/18 Range/Units 01:18 Troponin I < 0.03 (< 0.04) ng/mL Liver Function 04/04/18 Range/Units 01:18 Total Bilirubin 1.1 H (0.3-1.0) mg/dL Direct Bilirubin 0.3 H (0.0-0.2) mg/dL AST 18 (13-39) Units/L ALT 24 (7-52) Units/L Alkaline Phosphatase 118 H (34-104) Units/L Albumin 3.3 L (3.5-5.7) g/dL Urine 04/04/18 Range/Units 04:16 Urine Color Yellow (Yellow) Urine Clarity Clear (Clear) Urine pH 6.0 (5.0-8.0) pH Units Ur Specific [place] 1.020 (1.010-1.025) Urine Protein Negative (Neg-Trace) mg/dL Urine Glucose (UA) Normal (Normal) mg/dL - ABG Interpretation ABG results: PT/INR, D-dimer PT 13.5 Seconds (9.4-12.1) H 04/04/18 01:18 - Impressions Impressions Chest X-Ray 04/04/18 00:55 IMPRESSION: Bilateral atelectasis and/or pneumonia. D/ / Juan Monteiro MD / Juan Monteiro MD Interpreting Provider: Juan Monteiro MD Chest CTA 04/04/18 00:56 IMPRESSION: 1. Limited study with no definite scan evidence for pulmonary embolus. 2. Bilateral airspace disease probably represents a combination of atelectasis and pneumonia. Follow-up chest CT is recommended in 3 months given the nodular character of the left upper lobe airspace disease. D/ / Juan Monteiro MD / Juan Monteiro MD Interpreting Provider: Juan Monteiro MD Consult Discharge Plan - Plan Referrals: Paco Garcia, [Primary Care Provider] - (1) Pneumonia Qualifiers: Pneumonia type: due to unspecified organism Laterality: bilateral Lung location: lower lobe of lung Qualified Code(s): J18.1 - Lobar pneumonia, unspecified organism (2) Sepsis Qualifiers: Sepsis type: sepsis due to unspecified organism Qualified Code(s): A41.9 - Sepsis, unspecified organism (4) UTI (urinary tract infection) Qualifiers: Urinary tract infection type: acute cystitis Hematuria presence: without hematuria Qualified Code(s): N30.00 - Acute cystitis without hematuria (5) Asthma Qualifiers: Asthma severity: unspecified severity Asthma complication type: uncomplicated Qualified Code(s): J45.909 - Unspecified asthma, uncomplicated (6) HLD (hyperlipidemia) Qualifiers: Hyperlipidemia type: unspecified Qualified Code(s): E78.5 - Hyperlipidemia, unspecified
[2018-04-04] MEDS: Cefepime HCl 1,000 MG in Water for inj. (sterile) 20 ML 10 ML IVP SCH (17:27)
[2018-04-05] MEDS: Cefepime HCl 1,000 MG in Water for inj. (sterile) 20 ML 10 ML IVP SCH (05:20)
[2018-04-05] MEDS: *HR* Heparin 5,000 UNIT/ML VIAL SQ SCH ×2 (05:22→18:04)
[2018-04-05 05:51] LABS: Basophils % 0.4 %; Eosinophils # 0.4 K/mcL (0.0-0.6); Eosinophils % 5.2 %; Hematocrit 37.2 % (35.3-44.9); Immature Granulocytes % 1.6 % (0-4); Lymphocytes # 1.3 K/mcL (0.6-4.6); Lymphocytes % 16.3 %; Mean Corpuscular HGB Conc 32.3 g/dL (31.6-35.5); Mean Corpuscular Hemoglobin 28.1 pg (28.0-33.3); Mean Corpuscular Volume 87.1 fL (83.0-100.0); Mean Platelet Volume 10.8 fL (9.4-12.4); Monocytes % 12.2 %; Neutrophils # 5.2 K/mcL (1.6-8.9); Platelet Count 256 K/mcL (140-400); Red Blood Count 4.27 M/mcL (3.82-4.97); Red Cell Distribution Width 14.6 % (11.5-14.5); Segmented Neutrophils % 64.3 %
[2018-04-05 06:08] LABS: BUN/Creatinine Ratio 12 (6-26); Blood Urea Nitrogen 9 mg/dL (8-23); Calcium 8.4 mg/dL (8.6-10.3); Carbon Dioxide 22 mEq/L (23-29); Chloride 102 mEq/L (98-107); Glucose 86 mg/dL (70-105); Osmolality,Calculated 272 (280-300); Potassium 3.8 mEq/L (3.5-5.1); Sodium 132 mEq/L (136-145); eGFR For Non-African Americans > 60 (> 60)
[2018-04-05] MEDS: Tiotropium 18 MCG inhalation IH SCH (07:28)
[2018-04-05] MEDS: Budesonide/Formoterol 160/4.5 1 PUFF INH IH SCH ×2 (07:28→20:40)
--- NOTE | 2018-04-05 07:51 | Internal Med Progress Note ---
<Juliano Smith - Last Filed: 04/05/18 13:23> Hospitalist Progress Note - Encounter Date of Encounter: 04/05/18 Time of Encounter: 13:25 - Subjective Interval History: 72 YO F here for chest pain, tachycarida, SOB, and nuasea starting yesterday morning. Her vital signsappear stable - no longer meets sepsis criteria. This AM she is 166/91. In all her visits she appears to have wide swings in BP from 120/80s to 170s/90s. Oxygen satruation okay on 2L which she doesn't use at home. She on cefepime and vanc for pneumonia coverage. On admission urinarlysis showed possible UTI - cefepime also given for this. - Exam Vitals: Temp Pulse Resp BP Pulse Ox 98.5 F 96 14 166/91 96 04/05/18 04:13 04/05/18 04:13 04/05/18 07:29 04/05/18 04:13 04/05/18 07:29 Exam: General: Pt in NAD Skin: CDI Neurological: Pt is alert and awake, oriented x 3, no focal deficits noted Neck: supple, no tracheal deviation, Heart: S1S2 heard without gallops, clicks, murmurs, no bradycardia or tachycardia, pedal and radial pulses palpable bilaterally. Lungs: clear throughout without wheezing, rales, or ronchi, respirations are unlabored Abdomen: soft and non tender with bowel sound present Psych: Normal affect with good eye contact - - Assessment and Plan (1) Asthma Current Visit: Yes Status: Chronic Assessment and Plan: Chronic. Continue home medications and inhalers duonebs prn (2) HLD (hyperlipidemia) Current Visit: Yes Status: Chronic Assessment and Plan: Chronic. Continue home dose of Lipitor. (3) UTI (urinary tract infection) Current Visit: Yes Status: Acute Assessment and Plan: Urine with moderate amount of leukocyte esterase, WBC and many bacteria. Urine culture showing strep pneumo - awaiting blood cultures Continue antibiotics (4) Pneumonia Current Visit: Yes Status: Acute Assessment and Plan: Pt presented to the ED with 1 week history of cough, increasingly becoming worse with chest pain, shortness of breath and nausea. ON admittion, she met sepsis criteria with tachycardia, fever, and tachypnea, which have since resolved. Chest xray and CT showed possible pneumonia and with given vitals, she is being treated with IV antibiotics. She has been treated with IVF, blood cultures which remain with no growth so far today, and she has been stared on IV Cefepime and Vancomycin. Strep pneumo and legionella ordered and pending. Pts home asthma medications have been restarted. She is requiring supplemental 02 that she does not require at home. Continue IV antibiotics - cefepime and vanc MRSA nasal swab ordered will d/c vanc if negative. Home medicaitons 02 as needed to maintain sats > 92% Pulse ox Monitor vitals and labs (5) Sepsis Current Visit: Yes Status: Acute Assessment and Plan: Currently does not meet SIRS criteria. (6) DVT prophylaxis Current Visit: Yes Status: Acute - Time Spent with Patient Total time spent is greater than 50% in coordination of care (as documented) at patient's floor/unit and/or counseling patient: Internal Medicine: Result - Labs CBC & Chem 7: 04/05/18 04:51 04/05/18 04:51 Labs: Short CBC 04/05/18 Range/Units 04:51 WBC 8.1 (4.3-11.1) K/mcL Hgb 12.0 D (11.5-15.4) g/dL Hct 37.2 (35.3-44.9) % Plt Count 256 (140-400) K/mcL Neutrophils # 5.2 (1.6-8.9) K/mcL BMP 04/04/18 04/05/18 09:43 04:51 Sodium 132 L 132 L Potassium 3.9 3.8 Chloride 100 102 Carbon Dioxide 24 22 L BUN 11 9 Creatinine 0.78 0.73 Glucose 133 H 86 Calcium 8.5 L 8.4 L - ABG Interpretation ABG results: PT/INR, D-dimer PT 13.5 Seconds (9.4-12.1) H 04/04/18 01:18 Consult Discharge Plan - Plan Referrals: Paco Garcia DO [Primary Care Provider] - <Taqueria Sarabia - Last Filed: 04/05/18 16:37> Hospitalist Progress Note - Encounter Date of Encounter: 04/05/18 - Exam Vitals: Temp Pulse Resp BP Pulse Ox 98.1 F 86 15 154/89 96 04/05/18 14:35 04/05/18 14:35 04/05/18 14:35 04/05/18 14:35 04/05/18 14:35 - Assessment and Plan (1) Asthma Current Visit: Yes Status: Chronic (2) HLD (hyperlipidemia) Current Visit: Yes Status: Chronic (3) UTI (urinary tract infection) Current Visit: Yes Status: Acute (4) Pneumonia Current Visit: Yes Status: Acute (5) Sepsis Current Visit: Yes Status: Acute (6) DVT prophylaxis Current Visit: Yes Status: Acute - Time Spent with Patient Total time spent is greater than 50% in coordination of care (as documented) at patient's floor/unit and/or counseling patient: Internal Medicine: Result - Labs CBC & Chem 7: 04/05/18 04:51 04/05/18 04:51 Labs: Short CBC 04/05/18 Range/Units 04:51 WBC 8.1 (4.3-11.1) K/mcL Hgb 12.0 D (11.5-15.4) g/dL Hct 37.2 (35.3-44.9) % Plt Count 256 (140-400) K/mcL Neutrophils # 5.2 (1.6-8.9) K/mcL BMP 04/05/18 04:51 Sodium 132 L Potassium 3.8 Chloride 102 Carbon Dioxide 22 L BUN 9 Creatinine 0.73 Glucose 86 Calcium 8.4 L - ABG Interpretation ABG results: PT/INR, D-dimer PT 13.5 Seconds (9.4-12.1) H 04/04/18 01:18 - Attending Attestation I examined this patient and my medical decision-making was reviewed with the Resident Physician. I agree with the documented findings, disposition and treatment plan as described except to the extent set forth below. Patient doing well. Exam shows course breath sounds, no acute distress. VS reviewed, had fever t max 101.3 F, and was tachy at 122 which vitals now have improved. Will continue antibiotics for pneumonia, will de escalate antibiotics and monitor for improvement. <Juliano Smith - Last Filed: 04/05/18 13:23> (1) Asthma Qualifiers: Asthma severity: unspecified severity Asthma complication type: uncomplicated (2) HLD (hyperlipidemia) Qualifiers: Hyperlipidemia type: unspecified Qualified Code(s): E78.5 - Hyperlipidemia, unspecified (3) UTI (urinary tract infection) Qualifiers: Urinary tract infection type: acute cystitis Hematuria presence: without hematuria Qualified Code(s): N30.00 - Acute cystitis without hematuria (4) Pneumonia Qualifiers: Pneumonia type: due to unspecified organism Laterality: bilateral Lung location: lower lobe of lung Qualified Code(s): J18.1 - Lobar pneumonia, unspecified organism (5) Sepsis Qualifiers: Sepsis type: sepsis due to unspecified organism Qualified Code(s): A41.9 - Sepsis, unspecified organism <ColtroseyTaqueria - Last Filed: 04/05/18 16:37> (1) Asthma Qualifiers: Asthma severity: unspecified severity Asthma complication type: uncomplicated (2) HLD (hyperlipidemia) Qualifiers: Hyperlipidemia type: unspecified Qualified Code(s): E78.5 - Hyperlipidemia, unspecified (3) UTI (urinary tract infection) Qualifiers: Urinary tract infection type: acute cystitis Hematuria presence: without hematuria Qualified Code(s): N30.00 - Acute cystitis without hematuria (4) Pneumonia Qualifiers: Pneumonia type: due to unspecified organism Laterality: bilateral Lung location: lower lobe of lung Qualified Code(s): J18.1 - Lobar pneumonia, unspecified organism (5) Sepsis Qualifiers: Sepsis type: sepsis due to unspecified organism Qualified Code(s): A41.9 - Sepsis, unspecified organism
[2018-04-05] MEDS: Aspirin 81 MG TAB.CHEW PO SCH (09:44)
[2018-04-05] MEDS: Lisinopril 20 MG TABLET PO SCH (09:44)
[2018-04-05] MEDS: Fluticasone Propionate Nasal 50 MCG/SPRAY BOTTLE NS SCH (13:16)
[2018-04-05] MEDS: Artificial Tears SOLN 15 ML BOTTLE BOTH EYES PRN ×2 (13:16→21:39)
[2018-04-05] MEDS: cefTRIAXone 1,000 MG in Water for inj. (sterile) 20 ML 10 ML IVP SCH (15:26)
[2018-04-05] MEDS ORDERED: Triamcinolone Acet 0.1% CRM 15 GM TUBE TP PRN (19:13)
[2018-04-05] MEDS: Ipratropium/Albuterol Neb 3 ML IH PRN (20:40)
[2018-04-06] MEDS ORDERED: Menthol 9.1 MG LOZENGE PO PRN (02:01)
[2018-04-06 03:21] LABS: Basophils # 0.1 K/mcL (0.0-0.2); Basophils % 0.7 %; Eosinophils # 0.4 K/mcL (0.0-0.6); Eosinophils % 4.9 %; Hematocrit 37.5 % (35.3-44.9); Hemoglobin 12.3 g/dL (11.5-15.4); Immature Granulocytes % 4.1 % (0-4); Lymphocytes # 1.5 K/mcL (0.6-4.6); Mean Corpuscular HGB Conc 32.8 g/dL (31.6-35.5); Mean Corpuscular Hemoglobin 28.5 pg (28.0-33.3); Mean Platelet Volume 10.1 fL (9.4-12.4); Monocytes # 1.1 K/mcL (0.0-1.3); Monocytes % 12.5 %; Neutrophils # 5.4 K/mcL (1.6-8.9); Platelet Count 282 K/mcL (140-400); Red Blood Count 4.31 M/mcL (3.82-4.97); Red Cell Distribution Width 14.3 % (11.5-14.5); Segmented Neutrophils % 60.8 %
[2018-04-06] MEDS: Acetaminophen 325 MG TABLET PO PRN ×3 (03:37→23:16)
[2018-04-06 03:39] LABS: BUN/Creatinine Ratio 9 (6-26); Blood Urea Nitrogen 6 mg/dL (8-23); Calcium 8.4 mg/dL (8.6-10.3); Carbon Dioxide 24 mEq/L (23-29); Chloride 100 mEq/L (98-107); Glucose 99 mg/dL (70-105); Osmolality,Calculated 274 (280-300); Potassium 3.7 mEq/L (3.5-5.1); Sodium 133 mEq/L (136-145); eGFR For Non-African Americans > 60 (> 60)
[2018-04-06] MEDS: *HR* Heparin 5,000 UNIT/ML VIAL SQ SCH ×2 (05:39→17:27)
[2018-04-06] MEDS: Lisinopril 20 MG TABLET PO SCH (09:52)
[2018-04-06] MEDS: Artificial Tears SOLN 15 ML BOTTLE BOTH EYES PRN ×2 (09:52→20:18)
[2018-04-06] MEDS: Fluticasone Propionate Nasal 50 MCG/SPRAY BOTTLE NS SCH (09:52)
[2018-04-06] MEDS: Aspirin 81 MG TAB.CHEW PO SCH (09:52)
[2018-04-06] MEDS: Loratadine 10 MG TABLET PO SCH (10:06)
[2018-04-06] MEDS: Ipratropium/Albuterol Neb 3 ML IH PRN ×2 (10:15→20:53)
[2018-04-06] MEDS: Budesonide/Formoterol 160/4.5 1 PUFF INH IH SCH ×2 (10:15→20:53)
[2018-04-06] MEDS: Tiotropium 18 MCG inhalation IH SCH (10:19)
[2018-04-06] MEDS ORDERED: Aminoglycoside Consult 1 EACH MC ONE (10:45)
--- NOTE | 2018-04-06 13:53 | Internal Med Progress Note ---
Hospitalist Progress Note - Encounter Date of Encounter: 04/06/18 Time of Encounter: 13:50 - Subjective Interval History: Patient overnight had some malaise and also broke out into chills and night sweats. Breathing is improved. She is off oxygen this morning and states she is feeling a little better. Denies chest pain, SOB, n/v, palpitations, dysuria, hematuria. - Exam Vitals: Temp Pulse Resp BP Pulse Ox 98.3 F 101 14 151/82 91 04/06/18 10:34 04/06/18 10:34 04/06/18 10:34 04/06/18 10:34 04/06/18 10:34 Exam: Gen: NAD, AAOx3, cooperative with exam. Skin: warm, dry Lungs: CTAB CVS: RRR Abd: soft, NT/ND, normal bowel sounds Ext: no edema. - Assessment and Plan (1) Sepsis Current Visit: Yes Status: Acute Assessment and Plan: Resolved (2) Pneumonia Current Visit: Yes Status: Acute Assessment and Plan: Pt presented to the ED with 1 week history of cough, increasingly becoming worse with chest pain, shortness of breath and nausea. ON admittion, she met sepsis criteria with tachycardia, fever, and tachypnea, which have since resolved. Chest xray and CT showed possible pneumonia and with given vitals, she is being treated with IV antibiotics. She has been treated with IVF, blood cultures which remain with no growth so far today, and she has been stared on IV Cefepime and Vancomycin. Strep pneumo and legionella ordered and pending. Pts home asthma medications have been restarted. She is requiring supplemental 02 that she does not require at home. MRSA nasal swabnegative, DC vanc Weaned to room air, does not qualify for home oxygen. Likely okay to discharge home tomorrow if continues to improve. (3) Asthma Current Visit: Yes Status: Chronic Assessment and Plan: Chronic. Continue home medications and inhalers duonebs prn (4) HLD (hyperlipidemia) Current Visit: Yes Status: Chronic Assessment and Plan: Chronic. Continue home dose of Lipitor. (5) UTI (urinary tract infection) Current Visit: Yes Status: Acute Assessment and Plan: Urine with moderate amount of leukocyte esterase, WBC and many bacteria. Asymptomatic, patient may be chronic bacturia patient. Will guide infectious treatment for pneumonia instead of UTI. (6) DVT prophylaxis Current Visit: Yes Status: Acute Assessment and Plan: Heparin subcutaneous twice a day - Time Spent with Patient Total time spent is greater than 50% in coordination of care (as documented) at patient's floor/unit and/or counseling patient: Internal Medicine: Result - Labs CBC & Chem 7: 04/06/18 03:10 04/06/18 03:10 Labs: Short CBC 04/06/18 Range/Units 03:10 WBC 8.8 (4.3-11.1) K/mcL Hgb 12.3 (11.5-15.4) g/dL Hct 37.5 (35.3-44.9) % Plt Count 282 (140-400) K/mcL Neutrophils # 5.4 (1.6-8.9) K/mcL BMP 04/06/18 03:10 Sodium 133 L Potassium 3.7 Chloride 100 Carbon Dioxide 24 BUN 6 L Creatinine 0.67 Glucose 99 Calcium 8.4 L - ABG Interpretation ABG results: PT/INR, D-dimer PT 13.5 Seconds (9.4-12.1) H 04/04/18 01:18 Consult Discharge Plan - Plan Referrals: Paco Garcia, [Primary Care Provider] - (1) Sepsis Qualifiers: Sepsis type: sepsis due to unspecified organism Qualified Code(s): A41.9 - Sepsis, unspecified organism (2) Pneumonia Qualifiers: Pneumonia type: due to unspecified organism Laterality: bilateral Lung location: lower lobe of lung Qualified Code(s): J18.1 - Lobar pneumonia, unspecified organism (3) Asthma Qualifiers: Asthma severity: unspecified severity Asthma complication type: uncomplicated (4) HLD (hyperlipidemia) Qualifiers: Hyperlipidemia type: unspecified Qualified Code(s): E78.5 - Hyperlipidemia, unspecified (5) UTI (urinary tract infection) Qualifiers: Urinary tract infection type: acute cystitis Hematuria presence: without hematuria Qualified Code(s): N30.00 - Acute cystitis without hematuria
--- NOTE | 2018-04-06 14:25 | Internal Med Progress Note ---
<Juliano Smith - Last Filed: 04/06/18 14:58> Hospitalist Progress Note - Encounter Date of Encounter: 04/06/18 Time of Encounter: 14:51 - Subjective Interval History: 73 YO M POD 2 for ureteral stone removal with stent. Urine is not bloody today, no clots. Patient reports he is not in any pain, had mild pain yesterday right at bladder. Comfortable on nasal canula. Otherwise in no acute distress. - Exam Vitals: Temp Pulse Resp BP Pulse Ox 98.3 F 101 14 151/82 91 04/06/18 10:34 04/06/18 10:34 04/06/18 10:34 04/06/18 10:34 04/06/18 10:34 Exam: Gen: NAD, AAOx3, cooperative with exam. Skin: warm, dry, intact Lungs: CTAB CVS: RRR, +S1 and S2 Abd: soft, NT/ND, normal bowel sounds Ext: no edema radial pulses appreciated b/l neuro: aox3 no focal deficits - Assessment and Plan (1) Pneumonia Current Visit: Yes Status: Acute Assessment and Plan: Pt presented to the ED with 1 week history of cough, increasingly becoming worse with chest pain, shortness of breath and nausea. ON admittion, she met sepsis criteria with tachycardia, fever, and tachypnea, which have since resolved. Chest xray and CT showed possible pneumonia Strep pneumo antigen positive, legionella negative. Patient put on ceftriaxone will d/c on omnicef since patient is allergic to penicillins. Will try to wean patient off oxygen - incentive siprometer and walk test ordered Likely okay to discharge home tomorrow if continues to improve. (2) Asthma Current Visit: Yes Status: Chronic Assessment and Plan: Chronic. Continue home medications and inhalers duonebs prn (3) HLD (hyperlipidemia) Current Visit: Yes Status: Chronic Assessment and Plan: Chronic. Continue home dose of Lipitor. (4) UTI (urinary tract infection) Current Visit: Yes Status: Acute Assessment and Plan: Urine with moderate amount of leukocyte esterase, WBC and many bacteria. Asymptomatic, patient may be chronic bacturia patient. Per patient she has a history or positive urinalysis without UTI symptoms due to extensive antibiotic use for unrelated pathology. Positive urinalysis most likely due to bacteria colonization. As patient is asymptomatic will d/c treatment at this time and treat only pneumonia with ABX coverage. (5) Sepsis Current Visit: Yes Status: Acute Assessment and Plan: Resolved (6) DVT prophylaxis Current Visit: Yes Status: Acute Assessment and Plan: Heparin subcutaneous twice a day - Time Spent with Patient Total time spent is greater than 50% in coordination of care (as documented) at patient's floor/unit and/or counseling patient: Internal Medicine: Result - Labs CBC & Chem 7: 04/06/18 03:10 04/06/18 03:10 Labs: Short CBC 04/06/18 Range/Units 03:10 WBC 8.8 (4.3-11.1) K/mcL Hgb 12.3 (11.5-15.4) g/dL Hct 37.5 (35.3-44.9) % Plt Count 282 (140-400) K/mcL Neutrophils # 5.4 (1.6-8.9) K/mcL BMP 04/06/18 03:10 Sodium 133 L Potassium 3.7 Chloride 100 Carbon Dioxide 24 BUN 6 L Creatinine 0.67 Glucose 99 Calcium 8.4 L - ABG Interpretation ABG results: PT/INR, D-dimer PT 13.5 Seconds (9.4-12.1) H 04/04/18 01:18 Consult Discharge Plan - Plan Referrals: Paco Garcia DO [Primary Care Provider] - <Taqueria Sarabia - Last Filed: 04/06/18 19:52> Hospitalist Progress Note - Encounter Date of Encounter: 04/06/18 - Exam Vitals: Temp Pulse Resp BP Pulse Ox 98.8 F 94 17 159/80 94 04/06/18 18:39 04/06/18 18:39 04/06/18 18:39 04/06/18 18:39 04/06/18 18:39 - Assessment and Plan (1) Asthma Current Visit: Yes Status: Chronic (2) HLD (hyperlipidemia) Current Visit: Yes Status: Chronic (3) UTI (urinary tract infection) Current Visit: Yes Status: Acute (4) Pneumonia Current Visit: Yes Status: Acute (5) Sepsis Current Visit: Yes Status: Acute (6) DVT prophylaxis Current Visit: Yes Status: Acute - Time Spent with Patient Total time spent is greater than 50% in coordination of care (as documented) at patient's floor/unit and/or counseling patient: Internal Medicine: Result - Labs CBC & Chem 7: 04/06/18 03:10 04/06/18 03:10 Labs: Short CBC 04/06/18 Range/Units 03:10 WBC 8.8 (4.3-11.1) K/mcL Hgb 12.3 (11.5-15.4) g/dL Hct 37.5 (35.3-44.9) % Plt Count 282 (140-400) K/mcL Neutrophils # 5.4 (1.6-8.9) K/mcL BMP 04/06/18 03:10 Sodium 133 L Potassium 3.7 Chloride 100 Carbon Dioxide 24 BUN 6 L Creatinine 0.67 Glucose 99 Calcium 8.4 L - ABG Interpretation ABG results: PT/INR, D-dimer PT 13.5 Seconds (9.4-12.1) H 04/04/18 01:18 - Attending Attestation I examined this patient and my medical decision-making was reviewed with the Resident Physician. I agree with the documented findings, disposition and treatment plan as described except to the extent set forth below. <LawJuliano T - Last Filed: 04/06/18 14:58> (1) Pneumonia Qualifiers: Pneumonia type: due to unspecified organism Laterality: bilateral Lung location: lower lobe of lung Qualified Code(s): J18.1 - Lobar pneumonia, unspecified organism (2) Asthma Qualifiers: Asthma severity: unspecified severity Asthma complication type: uncomplicated (3) HLD (hyperlipidemia) Qualifiers: Hyperlipidemia type: unspecified Qualified Code(s): E78.5 - Hyperlipidemia, unspecified (4) UTI (urinary tract infection) Qualifiers: Urinary tract infection type: acute cystitis Hematuria presence: without hematuria Qualified Code(s): N30.00 - Acute cystitis without hematuria (5) Sepsis Qualifiers: Sepsis type: sepsis due to unspecified organism Qualified Code(s): A41.9 - Sepsis, unspecified organism <Taqueria Sarabia - Last Filed: 04/06/18 19:52> (1) Asthma Qualifiers: Asthma severity: unspecified severity Asthma complication type: uncomplicated (2) HLD (hyperlipidemia) Qualifiers: Hyperlipidemia type: unspecified Qualified Code(s): E78.5 - Hyperlipidemia, unspecified (3) UTI (urinary tract infection) Qualifiers: Urinary tract infection type: acute cystitis Hematuria presence: without hematuria Qualified Code(s): N30.00 - Acute cystitis without hematuria (4) Pneumonia Qualifiers: Pneumonia type: due to unspecified organism Laterality: bilateral Lung location: lower lobe of lung Qualified Code(s): J18.1 - Lobar pneumonia, unspecified organism (5) Sepsis Qualifiers: Sepsis type: sepsis due to unspecified organism Qualified Code(s): A41.9 - Sepsis, unspecified organism
[2018-04-06] MEDS: cefTRIAXone 1,000 MG in Water for inj. (sterile) 20 ML 10 ML IVP SCH (15:34)
--- NOTE | 2018-04-06 16:52 | Electrocardiograph Report ---
[address] [place], [place] [address] Test Date: 2018-04-04 Pat Name: Airam Ramey Department: [id number] Room: 3A13 Gender: F [employer]: : 1945 Requested By: Valentin Rivera Order Number: [id number] Reading MD: Jg Rowell Measurements Intervals [place] Rate: 121 P: 62 WA: 171 QRS: -51 QRSD: 107 T: 92 QT: 317 QTc: 450 Interpretive Statements Sinus tachycardia LAE, consider biatrial enlargement Abnormal R-wave progression, late transition Inferior infarct, age undetermined Electronically Signed On 04-06-2018 16:51:22 EST by Jg Rowell
[2018-04-07] MEDS: *HR* Heparin 5,000 UNIT/ML VIAL SQ SCH (05:10)
[2018-04-07] MEDS: Budesonide/Formoterol 160/4.5 1 PUFF INH IH SCH (07:29)
[2018-04-07] MEDS: Tiotropium 18 MCG inhalation IH SCH (07:30)
[2018-04-07 08:21] LABS: Hematocrit 37.2 % (35.3-44.9); Hemoglobin 12.1 g/dL (11.5-15.4); Mean Corpuscular HGB Conc 32.5 g/dL (31.6-35.5); Mean Corpuscular Hemoglobin 28.5 pg (28.0-33.3); Mean Corpuscular Volume 87.7 fL (83.0-100.0); Mean Platelet Volume 9.9 fL (9.4-12.4); Platelet Count 276 K/mcL (140-400); Red Blood Count 4.24 M/mcL (3.82-4.97); Red Cell Distribution Width 14.5 % (11.5-14.5)
[2018-04-07] MEDS: Loratadine 10 MG TABLET PO SCH (08:29)
[2018-04-07] MEDS: Fluticasone Propionate Nasal 50 MCG/SPRAY BOTTLE NS SCH (08:29)
[2018-04-07] MEDS: Lisinopril 20 MG TABLET PO SCH (08:29)
[2018-04-07] MEDS: Aspirin 81 MG TAB.CHEW PO SCH (08:29)
[2018-04-07] MEDS: Artificial Tears SOLN 15 ML BOTTLE BOTH EYES PRN (08:30)
[2018-04-07] MEDS: Acetaminophen 325 MG TABLET PO PRN (08:46)
[2018-04-07 09:57] LABS: Eosinophils # 0.3 K/mcL (0.0-0.6); Lymphocytes # 2.5 K/mcL (0.6-4.6); Monocytes # 0.4 K/mcL (0.0-1.3); Platelet Estimate Normal (Normal)
--- NOTE | 2018-04-07 10:06 | Discharge Summary ---
<Juliano Smith - Last Filed: 04/07/18 11:28> Orders not resulted at time of discharge: Pending orders 04/07/18 07:22 Basic Metabolic Panel Routine 04/08/18 04:00 BMP [Basic Metabolic Panel] AM 0400 CBC [Complete Blood Count] [HEME] AM 0400 04/09/18 04:00 BMP [Basic Metabolic Panel] AM 0400 CBC [Complete Blood Count] [HEME] AM 0400 04/10/18 04:00 BMP [Basic Metabolic Panel] AM 0400 CBC [Complete Blood Count] [HEME] AM 0400 04/11/18 04:00 BMP [Basic Metabolic Panel] AM 0400 CBC [Complete Blood Count] [HEME] AM 0400 04/12/18 04:00 BMP [Basic Metabolic Panel] AM 0400 CBC [Complete Blood Count] [HEME] AM 0400 04/13/18 04:00 BMP [Basic Metabolic Panel] AM 0400 CBC [Complete Blood Count] [HEME] AM 0400 04/04/18 01:33 Culture,Blood [BC] Stat Date of Encounter: 04/07/18 Time of Encounter: 10:04 - Discharge Diagnosis (1) Pneumonia Priority: Primary Status: Acute Assessment and Plan: 72 YO F with pneumonia seen on CXR and chest CT with strep phum antigen positiv e. Put on ceftriaxone in hospital for 4 days. She was on nasal cannula in hospital. She no longer needs nasal cannula - passed 6 minute walk test with 94% SaO2 and is comfortable at rest. Patient is stable enough to return home. Will continue patient on omnicef at home for 10 days BID 300mg. Qualifiers: Pneumonia type: due to group B Streptococcus Laterality: bilateral Lung location: lower lobe of lung Qualified Code(s): J15.3 - Pneumonia due to streptococcus, group B (2) Asthma Priority: Secondary Status: Chronic Assessment and Plan: Chronic. Continue home medications and inhalers Qualifiers: Asthma severity: unspecified severity Asthma persistence: unspecified Asthma complication type: uncomplicated Qualified Code(s): J45.909 - Unspecified asthma, uncomplicated (3) HLD (hyperlipidemia) Priority: Secondary Status: Chronic Assessment and Plan: Chronic. Continue home dose of Lipitor. Qualifiers: Hyperlipidemia type: unspecified Qualified Code(s): E78.5 - Hyperlipidemia, unspecified (4) UTI (urinary tract infection) Priority: Secondary Status: Acute Assessment and Plan: Urine with moderate amount of leukocyte esterase, WBC and many bacteria. Asymptomatic, patient may be chronic bacturia patient. Per patient she has a history or positive urinalysis without UTI symptoms due to extensive antibiotic use for unrelated pathology. Positive urinalysis most likely due to bacteria colonization. As patient is asymptomatic no further treatment. Qualifiers: Urinary tract infection type: acute cystitis Hematuria presence: without hematuria Qualified Code(s): N30.00 - Acute cystitis without hematuria (5) Sepsis Priority: Primary Status: Acute Assessment and Plan: Resolved Qualifiers: Sepsis type: Streptococcus group B Qualified Code(s): A40.1 - Sepsis due to streptococcus, group B (6) DVT prophylaxis Priority: Secondary Status: Acute Assessment and Plan: No further intervention. Discontinue subcutaneous heparin. Hospital course: Ms. Ramey is a 72 year old female Discharge discussed with: patient, family - Time Spent with Patient Total time spent providing and/or coordinating discharge services: - Discharge Medications Prescriptions: Cefdinir [Omnicef] 300 mg PO BID #20 capsule Home Medications: Albuterol Sulfate [Proair Hfa] 2 puff IH Q4H PRN 10/05/16 [History] Ascorbate Calcium [Vitamin C] 500 mg PO BID 10/05/16 [History] Aspirin 81 mg PO DAILY 10/05/16 [History] Atorvastatin [Lipitor] 40 mg PO HS 10/05/16 [History] Biotin 5 mg PO DAILY 10/05/16 [History] Calcium Carbonate/Vitamin D3 [Caltrate 600 + D Soft Chew Tab] 1 tab PO BID 10/05/16 [History] Cyclosporine [Restasis] 1 drop OP BID 10/05/16 [History] Ginkgo Biloba 40 mg PO DAILY 10/05/16 [History] Glucosamine/D3/Boswellia Pat [Osteo Bi-Flex Tablet] 1 tab PO BID 10/05/16 [History] L. Acidophilus/Pectin, [place] [Acidophilus Probiotic Capsule] 1 cap PO DAILY 10/05/16 [History] Multivit-Min/FA/Lycopen/Lutein [Centrum Silver Tablet] 1 tab PO DAILY 10/05/16 [History] Potassium Gluconate [Potassium] 99 mg PO BID 10/05/16 [History] Fexofenadine HCl 180 mg PO DAILY 10/26/16 [History] Montelukast [Singulair] 10 mg PO HS 10/26/16 [History] Lisinopril [Zestril] 20 mg PO DAILY #30 tablet 10/28/16 [Rx] Hydroxychloroquine [Plaquenuil] 200 mg PO BID 12/16/16 [History] Advair Hfa 230-21 Mcg Inhaler 2 puff PO BID 04/04/18 [History] Azelastine 0.1% Nasal Fidelity 1 spr NS BID 04/04/18 [History] Levothyroxine [Synthroid] 50 mcg PO DAILY 04/04/18 [History] Tiotropium Bow [Spiriva Respimat] 2 spr PO DAILY 04/04/18 [History] Cefdinir [Omnicef] 300 mg PO BID #20 capsule 04/07/18 [Rx] Allergies/Adverse Reactions: Allergy/AdvReac Type Severity Reaction Status Date / Time Amoxicillin [From Augmentin] Allergy Hives Verified 04/04/18 00:58 clavulanic acid Allergy Hives Verified 04/04/18 00:58 [From Augmentin] Procaine [From Novocain] AdvReac Swelling Verified 04/04/18 00:58 of Lip/Tongue/Throat Date of admission: 04/04/18 17:38 Primary care physician: Paco Garcia DO - Constitutional Vitals: Temp Pulse Resp BP Pulse Ox 98.4 F 100 20 153/90 99 04/07/18 06:57 04/07/18 06:57 04/07/18 07:29 04/07/18 06:57 04/07/18 07:29 General appearance: Present: cooperative, A&O X 3, pleasant, no acute distress, answers questions appropriately Exam: Gen: NAD, AAOx3, cooperative with exam. Head: normocephalic atraumatic, no sinus tenderness noted. Patient complains of left sided stuffiness which improves with antihistamines. Skin: warm, dry, intact Lungs: CTAB CVS: RRR, +S1 and S2 Abd: soft, NT/ND, normal bowel sounds Ext: no edema radial pulses appreciated b/l neuro: aox3 no focal deficits - Patient Status Disposition: Home, Self-Care Condition: Good Functional capacity at discharge: independent ambulation Overall status at discharge: patient is progressing back to baseline - Discharge Instructions Instructions: Cefdinir (By mouth) Follow Up With: Paco Garcia DO [Primary Care Provider] - (Patient going to make own appointment. Thank you) <ColtroseyTaqueria - Last Filed: 04/07/18 18:51> Orders not resulted at time of discharge: Pending orders 04/04/18 01:33 Culture,Blood [BC] Stat Date of Encounter: 04/07/18 - Discharge Diagnosis (1) Asthma Status: Chronic Qualifiers: Asthma severity: unspecified severity Asthma persistence: unspecified Asthma complication type: uncomplicated Qualified Code(s): J45.909 - Unspecified asthma, uncomplicated (2) HLD (hyperlipidemia) Status: Chronic Qualifiers: Hyperlipidemia type: unspecified Qualified Code(s): E78.5 - Hyperlipidemia, unspecified (3) UTI (urinary tract infection) Status: Acute Qualifiers: Urinary tract infection type: acute cystitis Hematuria presence: without hematuria Qualified Code(s): N30.00 - Acute cystitis without hematuria (4) Pneumonia Status: Acute Qualifiers: Pneumonia type: due to group B Streptococcus Laterality: bilateral Lung location: lower lobe of lung Qualified Code(s): J15.3 - Pneumonia due to streptococcus, group B (5) Sepsis Status: Acute Qualifiers: Sepsis type: Streptococcus group B Qualified Code(s): A40.1 - Sepsis due to streptococcus, group B (6) DVT prophylaxis Status: Acute Hospital course: Ms. Ramey is a 72 year old female - Time Spent with Patient Total time spent providing and/or coordinating discharge services: Date of admission: 04/04/18 17:38 Primary care physician: Paco Garcia DO - Constitutional Vitals: Temp Pulse Resp BP Pulse Ox 97.7 F 88 15 149/88 95 04/07/18 10:27 04/07/18 10:27 04/07/18 10:27 04/07/18 10:27 04/07/18 10:27 - Attending Attestation I examined this patient and my medical decision-making was reviewed with the Resident Physician. I agree with the documented findings, disposition and treatment plan as described except to the extent set forth below. Please see resident note from today. Addendum entered and electronically signed by Juliano Smith 04/07/18 11:48: Hospital course: Ms. Ramey is a 72 year old female presenting to ED with sudden onset chest pain, tachycardia shortness of breath and nausea. She had been been experiencing a cough for about 1 week has been progressively getting worse. Patient has a history of asthma controlled on nebulizer and inhalers. Trops and EKG were negative. CXR and chest CTA showed b/l atelectasis. She was admitted and put on empiric vanc and cefepime. MRSA swab was done and vanc stopped. Patient was switched from cefepime to ceftriaxone because suspcicion of pseudomonas was low. Yesterday she was given a 6 minute walking test on room air and had SaO2 of 94% and was comfortable at rest on room air. Her WBC was 7.2.
[2018-04-07 10:31] VITALS: BP 149/88
[2018-04-07 10:35] LABS: BUN/Creatinine Ratio 7 (6-26); Blood Urea Nitrogen 5 mg/dL (8-23); Calcium 8.4 mg/dL (8.6-10.3); Carbon Dioxide 25 mEq/L (23-29); Chloride 102 mEq/L (98-107); Glucose 110 mg/dL (70-105); Osmolality,Calculated 278 (280-300); Potassium 3.7 mEq/L (3.5-5.1); Sodium 135 mEq/L (136-145); eGFR For Non-African Americans > 60 (> 60)
== END 2018-04-07 12:40 | disposition home or self-care (01) | DRG 871 ==
LOC: 3ANU 00:48 → EMEROOARM 00:48 → 3ANU 04:43 → SUATTDRO 17:38
PROVIDERS: ADMIT Family Medicine; ATTEND Student in an Organized Health Care Education/Training Program

== ENCOUNTER 2019-01-11 12:41 | Inpatient (IN) ==
[2019-01-11] MEDS ORDERED: Scopolamine Patch 1.5 MG PATCH.TD72 TD ONE (13:20)
[2019-01-11] MEDS ORDERED: Gabapentin 300 MG CAPSULE PO ONE (13:20)
[2019-01-11] MEDS ORDERED: Famotidine 20 MG/2 ML VIAL IVP ONE (13:20)
[2019-01-11] MEDS ORDERED: Acetaminophen IV 1,000 MG/100 ML INFUS..BTL IVPB ONE (13:20)
[2019-01-11] MEDS ORDERED: *HR* OxyCODONE Immed Rel 5 MG TABLET PO PRN (13:24)
[2019-01-11] MEDS ORDERED: *HR* Labetalol 20 MG/4 ML SYRINGE IVP PRN (13:24)
[2019-01-11] MEDS ORDERED: *HR* Promethazine 25 MG/ML VIAL IVP PRN (13:24)
[2019-01-11] MEDS ORDERED: Ondansetron 4 MG/2 ML VIAL IVP ONE (13:24)
[2019-01-11] MEDS ORDERED: *HR* HYDROmorphone (PF) 1 MG/ML SYRINGE IVP PRN (13:24)
[2019-01-11] MEDS ORDERED: Albuterol 2.5 MG/3 ML NEBULIZER IH PRN (13:24)
[2019-01-11] MEDS ORDERED: cefOXitin 2,000 MG in Water for inj. (sterile) 20 ML IVP ONE (13:31)
[2019-01-11] MEDS ORDERED: Ringers Solution, Lactated 1,000 ML IVC SCH (13:45)
[2019-01-11] MEDS ORDERED: *HR* Propofol 200 MG/20 ML VIAL IVP ONE (14:44)
[2019-01-11] MEDS ORDERED: Lidocaine -MPF 4% 5 ML AMPUL ONE (14:44)
[2019-01-11] MEDS ORDERED: *HR* FentaNYL (PF) 100 MCG/2 ML VIAL ONE (14:44)
[2019-01-11] MEDS ORDERED: Lidocaine -MPF 2% 2 ML VIAL ONE (14:44)
[2019-01-11] MEDS ORDERED: Neostigmine Methylsulfate 3 MG/3 ML SYRINGE ONE (14:44)
[2019-01-11] MEDS ORDERED: *HR* Rocuronium Bromide 50 MG/5 ML VIAL ONE (14:44)
[2019-01-11] MEDS ORDERED: Ondansetron 4 MG/2 ML VIAL ONE (14:44)
[2019-01-11] MEDS ORDERED: *HR* PHENYLEPHRINE 1,000 MCG/10 ML SYRINGE IVP ONE (15:50)
[2019-01-11] MEDS ORDERED: *HR* HYDROMORPHONE 2 MG/ML VIAL ONE (16:21)
[2019-01-11] MEDS ORDERED: Propofol 500 MG/50 ML INFUS..BTL ONE (17:08)
[2019-01-11] MEDS ORDERED: Naloxone 0.4 MG/ML INJ IVP PRN (19:03)
[2019-01-11] MEDS ORDERED: Ondansetron 4 MG/2 ML VIAL IVP PRN (19:03)
[2019-01-11] MEDS: Ketorolac 15 MG/ML VIAL IM SCH (20:06)
[2019-01-11] MEDS: *HR* Heparin 5,000 UNIT/ML VIAL SQ SCH (20:07)
[2019-01-11] MEDS: 0.9 % Sodium Chloride 1,000 ML IVC SCH (20:08)
[2019-01-12] MEDS: Ketorolac 15 MG/ML VIAL IM SCH ×4 (01:14→17:38)
[2019-01-12] MEDS: *HR* Heparin 5,000 UNIT/ML VIAL SQ SCH ×2 (05:49→17:38)
[2019-01-12 06:43] LABS: Basophils % 0.2 %; Eosinophils # 0.1 K/mcL (0.0-0.6); Eosinophils % 1.2 %; Hematocrit 37.3 % (35.3-44.9); Hemoglobin 11.6 g/dL (11.5-15.4); Immature Granulocytes % 0.2 % (0-4); Lymphocytes # 1.6 K/mcL (0.6-4.6); Mean Corpuscular HGB Conc 31.1 g/dL (31.6-35.5); Mean Corpuscular Volume 93.3 fL (83.0-100.0); Mean Platelet Volume 10.6 fL (9.4-12.4); Monocytes # 0.8 K/mcL (0.0-1.3); Monocytes % 9.2 %; Neutrophils # 6.6 K/mcL (1.6-8.9); Platelet Count 224 K/mcL (140-400); Red Cell Distribution Width 14.5 % (11.5-14.5); Segmented Neutrophils % 72.2 %; White Blood Count 9.1 K/mcL (4.3-11.1)
[2019-01-12 07:03] LABS: BUN/Creatinine Ratio 13 (6-26); Blood Urea Nitrogen 12 mg/dL (8-23); Calcium 7.9 mg/dL (8.6-10.3); Carbon Dioxide 24 mEq/L (23-29); Chloride 101 mEq/L (98-107); Glucose 94 mg/dL (70-105); Osmolality,Calculated 276 (280-300); Sodium 133 mEq/L (136-145); eGFR For African Americans > 60 (> 60); eGFR For Non-African Americans 59 (> 60)
[2019-01-12] MEDS: 0.9 % Sodium Chloride 1,000 ML IVC SCH (09:07)
[2019-01-12] MEDS: Budesonide/Formoterol 160/4.5 1 PUFF INH IH SCH ×2 (10:37→19:51)
[2019-01-12] MEDS: Tiotropium 18 MCG inhalation IH SCH (10:37)
[2019-01-13] MEDS: Ketorolac 15 MG/ML VIAL IVP SCH ×3 (01:37→12:54)
[2019-01-13] MEDS: 0.9 % Sodium Chloride 1,000 ML IVC SCH ×2 (01:38→12:54)
[2019-01-13] MEDS: *HR* Heparin 5,000 UNIT/ML VIAL SQ SCH (06:05)
[2019-01-13] MEDS ORDERED: Aspirin 81 MG TAB.CHEW PO SCH (09:00)
[2019-01-13] MEDS ORDERED: Azelastine 0.1% Nasal Spray 30 ML BOTTLE NS SCH (09:00)
[2019-01-13] MEDS ORDERED: Lisinopril 20 MG TABLET PO SCH (09:00)
[2019-01-13] MEDS: Tiotropium 18 MCG inhalation IH SCH (10:14)
[2019-01-13] MEDS: Budesonide/Formoterol 160/4.5 1 PUFF INH IH SCH (10:14)
[2019-01-13 11:43] LABS: BUN/Creatinine Ratio 12 (6-26); Blood Urea Nitrogen 9 mg/dL (8-23); Calcium 8.1 mg/dL (8.6-10.3); Carbon Dioxide 22 mEq/L (23-29); Chloride 102 mEq/L (98-107); Glucose 81 mg/dL (70-105); Osmolality,Calculated 268 (280-300); Potassium 3.6 mEq/L (3.5-5.1); Sodium 130 mEq/L (136-145); eGFR For African Americans > 60 (> 60); eGFR For Non-African Americans > 60 (> 60)
[2019-01-13 15:33] VITALS: BP 128/74
== END 2019-01-13 15:50 | disposition home or self-care (01) | DRG 331 ==
LOC: SAMDAY 12:41 → 3ANU 18:55
PROVIDERS: ADMIT Surgery; ATTEND Surgery